=== PATIENT | male | born 1950 | race Hispanic/Latino ===

== ENCOUNTER 2018-01-18 09:46 | Emergency (ER) | payer OTHER ==
[2018-01-18] MEDS ORDERED: HYDROCODONE/APAP 7.5/325 MG TAB ONE (10:36)
[2018-01-18] MEDS ORDERED: IBUPROFEN 400 MG TAB ONE (10:36)
--- NOTE | 2018-01-18 12:18 | RAD REPORT ---
EXAM DESCRIPTION: RAD - Knee Left 3 View - 01/18/2018 10:45 am CLINICAL HISTORY: Fall, knee pain COMPARISON: July 2012 FINDINGS: No fracture, dislocation or periosteal reaction.Large joint effusion seen. No fat fluid le nathan seen to indicate lipohemarthrosis. Advanced degenerative changes are present progressive from 201 3. Significant medial compartment narrowing is present with a moderate lateral compartment narrowing. Both compartment show marginal spurring. Large spurs are present along the margins of the patellofem oral joint space. No focal soft tissue abnormality seen. No foreign body. IMPRESSION: Advanced bony degenerative change present progressive from 2013. An acute bone process i s not identifiable. Large joint effusion without plain film findings for lipohemarthrosis. Clinical concerns for internal derangement or occult bony injury could be further assessed with MR im aging.
--- NOTE | 2018-01-18 12:30 | ER ---
Nurse's Notes [facility] Name: Gildardo Callejas Age: 67 yrs Sex: Male : 1950 Arrival Date: 01/18/2018 Time: 09:48 Bed 17 Private MD: Hayley Eric F Diagnosis: Pain in left knee Presentation: 01/18 09:55 Presenting complaint: Patient states: Left knee pain after mechanical fall from hb standing 2 days ago. Transition of care: patient was not received from another setting of care. Onset of symptoms was January 17, 2018. Risk Assessment: Do you want to hurt yourself or someone else? Patient reports no desire to harm self or others. Initial Sepsis Screen: Does the patient meet any 2 criteria? No. Patient's initial sepsis screen is negative. Does the patient have a suspected source of infection? No. Patient's initial sepsis screen is negative. Care prior to arrival: None. 09:55 Method Of Arrival: Ambulatory hb 09:55 Acuity: MORE 4 hb Historical: - Allergies: 09:57 Sulfa (Sulfonamide Antibiotics); hb - PMHx: 09:57 Hypertension; Diabetes - NIDDM; hb - PSHx: 09:57 Knee surgery; Appendectomy; Cardiac Stents; hb - Immunization history:: Adult Immunizations up to date. - Social history:: Smoking status: Patient/guardian denies using tobacco. - Ebola Screening: : No symptoms or risks identified at this time. Screenin:22 Abuse screen: Denies threats or abuse. Nutritional screening: No deficits noted. em Tuberculosis screening: No symptoms or risk factors identified. Fall Risk Ambulatory Aid- Crutches/Cane/Walker (15 pts). Total Vargas Fall Scale indicates No Risk (0-24 pts). Assessment: 10:30 General: Appears in no apparent distress. uncomfortable, Behavior is calm, cooperative. em Pain: Complains of pain in left knee Pain currently is 10 out of 10 on a pain scale. Neuro: Level of Consciousness is awake, alert, obeys commands, Oriented to person, place, time, situation. Cardiovascular: Capillary refill < 3 seconds Patient's skin is warm and dry. Respiratory: Airway is patent Respiratory effort is even, unlabored, Respiratory pattern is regular, symmetrical. GI: Abdomen is flat. : No signs and/or symptoms were reported regarding the genitourinary system. EENT: No signs and/or symptoms were reported regarding the EENT system. Derm: Skin is intact, Skin is pink, warm \T\ dry. Musculoskeletal: Capillary refill < 3 seconds, Range of motion: limited in left knee Swelling present in left knee. 10:40 Reassessment: I agree with previous assessment. hb 12:24 Reassessment: Patient appears in no apparent distress at this time. Patient and/or em family updated on plan of care and expected duration. Pain level reassessed. Patient is alert, oriented x 3, equal unlabored respirations, skin warm/dry/pink. Patient states feeling better. Patient states symptoms have improved. Vital Signs: 09:57 BP 162 / 81; Pulse 66; Resp 15; Temp 98; Pulse Ox 98% on R/A; Pain 5/10; hb 12:00 BP 154 / 75; Pulse 61; Resp 16; Pulse Ox 99% on R/A; Pain 1/10; em ED Course: 09:48 Patient arrived in ED. as 09:48 Hayley Eric MD is Private Physician. as 09:54 Hans Du PA is PHCP. cp 09:54 Kristian Kyle MD is Attending Physician. cp 09:56 Triage completed. hb 09:57 Arm band placed on. hb 10:00 Jac Quiros LVN is Primary Nurse. em 10:22 Bed in low position. Call light in reach. Adult w/ patient. em 10:42 X-ray completed. Patient tolerated procedure well. Patient moved back from radiology. kw 10:43 XRAY Knee LEFT 3 view In Process Unspecified. EDMS 12:29 Herman Butler MD is Referral Physician. cp 12:48 No provider procedures requiring assistance completed. Patient did not have IV access em during this emergency room visit. Administered Medications: 10:59 Drug: Ibuprofen 800 mg Route: PO; em 12:10 Follow up: Response: No adverse reaction; Pain is decreased em 10:59 Drug: Hydrocodone-Acetaminophen (7.5 mg-325 mg) 1 tabs Route: PO; em 12:11 Follow up: Response: No adverse reaction; Pain is decreased em Outcome: 12:30 Discharge ordered by . cp 12:48 Discharged to home with crutches, with family. em 12:48 Condition: good 12:48 Discharge instructions given to patient, family, Instructed on discharge instructions, follow up and referral plans. medication usage, Demonstrated understanding of instructions, follow-up care, medications, Prescriptions given X 2. 12:49 Patient left the ED. em Signatures: Dispatcher [employer] EDJac Simpson, PRODUCT ARCHITECT PRODUCT ARCHITECT Trish Doll Kimberlee kw Page, Corey, PA PA cp Baxter, Heather, RN RN hb
--- NOTE | 2018-01-18 12:30 | EDPHYS ---
Physician Documentation [facility] Name: Gildardo Callejas Age: 67 yrs Sex: Male : 1950 Arrival Date: 01/18/2018 Time: 09:48 Bed 17 Private MD: Hayley Eric F ED Physician Kristian Kyle HPI: 01/18 10:05 This 67 yrs old Male presents to ER via Ambulatory with complaints of Knee cp Pain. 10:05 The patient presents with an injury, pain, that is acute. cp 10:05 The complaints affect the left knee. Context: resulted from a mis-step, on a slippery cp surface, the patient can fully bear weight, the patient is able to ambulate, with moderate difficulty, Problem is a result from a previous injury: Yes. Onset: The symptoms/episode began/occurred 2 day(s) ago. 10:05 Associated signs and symptoms: Pertinent positives: swelling, weakness, Pertinent cp negatives calf tenderness, numbness, warmth. Treatment prior to arrival includes: no previous treatment. Severity of symptoms: in the emergency department the symptoms are unchanged, despite home interventions. Historical: - Allergies: 09:57 Sulfa (Sulfonamide Antibiotics); hb - PMHx: 09:57 Hypertension; Diabetes - NIDDM; hb - PSHx: 09:57 Knee surgery; Appendectomy; Cardiac Stents; hb - Immunization history:: Adult Immunizations up to date. - Social history:: Smoking status: Patient/guardian denies using tobacco. - Ebola Screening: : No symptoms or risks identified at this time. ROS: 10:10 Constitutional: Negative for body aches, chills, fever, poor PO intake. cp 10:10 Eyes: Negative for injury, pain, redness, and discharge. cp 10:10 ENT: Negative for drainage from ear(s), ear pain, sore throat, difficulty swallowing, difficulty handling secretions. 10:10 Cardiovascular: Negative for chest pain, edema, palpitations. 10:10 Respiratory: Negative for cough, shortness of breath, wheezing. 10:10 Abdomen/GI: Negative for abdominal pain, nausea, vomiting, and diarrhea. 10:10 Back: Negative for pain at rest, pain with movement, radiated pain. 10:10 : Negative for urinary symptoms. 10:10 MS/extremity: Positive for decreased range of motion, pain, swelling, tenderness, of the left knee. 10:10 Skin: Negative for cellulitis, rash. 10:10 Neuro: Negative for altered mental status, headache. 10:10 All other systems are negative. Exam: 10:18 Constitutional: The patient appears in no acute distress, alert, awake, non-toxic, well cp developed, well nourished. 10:18 Head/Face: Normocephalic, atraumatic. cp 10:18 Eyes: Periorbital structures: appear normal, Conjunctiva: normal, no exudate, no injection, Sclera: no appreciated abnormality, Lids and lashes: appear normal, bilaterally. 10:18 ENT: External ear(s): are unremarkable, Nose: is normal, Mouth: is normal, Posterior pharynx: is normal, airway is patent. 10:18 Chest/axilla: Inspection: normal. 10:18 Cardiovascular: Rate: normal. 10:18 Respiratory: the patient does not display signs of respiratory distress, Respirations: normal, no use of accessory muscles, no splinting, no tachypnea, labored breathing, is not present. 10:18 Abdomen/GI: Exam negative for discomfort, distension, guarding, Inspection: abdomen appears normal. 10:18 Back: pain, is absent, ROM is normal. 10:18 Musculoskeletal/extremity: Joints: All joints are normal except the left knee displays limited range of motion, painful range of motion, swelling, tenderness. 10:18 Skin: cellulitis, is not appreciated, no rash present. 10:18 Neuro: Orientation: to person, place \T\ time. Mentation: is normal. Vital Signs: 09:57 BP 162 / 81; Pulse 66; Resp 15; Temp 98; Pulse Ox 98% on R/A; Pain 5/10; hb 12:00 BP 154 / 75; Pulse 61; Resp 16; Pulse Ox 99% on R/A; Pain 1/10; em MDM: 09:54 Patient medically screened. cp 10:30 Differential diagnosis: closed fracture, tendonitis, septic joint. cp 12:28 Data reviewed: vital signs, nurses notes, radiologic studies, plain films, and as a cp result, I will discharge patient. Test interpretation: by ED physician or midlevel provider: plain radiologic studies. Counseling: I had a detailed discussion with the patient and/or guardian regarding: the historical points, exam findings, and any diagnostic results supporting the discharge/admit diagnosis, radiology results, the need for outpatient follow up, for definitive care, a orthopedic surgeon, to return to the emergency department if symptoms worsen or persist or if there are any questions or concerns that arise at home. Response to treatment: the patient's symptoms have markedly improved after treatment, and as a result, I will discharge patient. 01/18 10:02 Order name: XRAY Knee LEFT 3 view; Complete Time: 12:19 cp 01/18 12:28 Order name: Knee Immobilizer; Complete Time: 12:48 cp 01/18 12:28 Order name: Crutches; Complete Time: 12:48 cp Administered Medications: 10:59 Drug: Ibuprofen 800 mg Route: PO; em 12:10 Follow up: Response: No adverse reaction; Pain is decreased em 10:59 Drug: Hydrocodone-Acetaminophen (7.5 mg-325 mg) 1 tabs Route: PO; em 12:11 Follow up: Response: No adverse reaction; Pain is decreased em Disposition: 17:46 Co-signature as Attending Physician, Kristian Kyle MD. rn Disposition: 01/18/18 12:30 Discharged to Home. Impression: Pain in left knee. - Condition is Stable. - Discharge Instructions: Knee Immobilizer, Knee Pain. - Prescriptions for Anaprox DS 550 mg Oral Tablet - take 1 tablet by ORAL route every 12 hours As needed; 20 tablet. Tramadol 50 mg Oral Tablet - take 1 tablet by ORAL route every 8 hours as needed; 20 tablet. - Medication Reconciliation Form, Thank You Letter, Antibiotic Education, Prescription Opioid Use form. - Follow up: Herman Butler MD; When: 2 - 3 days; Reason: Recheck today's complaints. - Problem is new. - Symptoms have improved. Signatures: Dispatcher [employer] EDMS Jac Quiros, PHOTOGRAPHY ASSISTANT PHOTOGRAPHY ASSISTANT em Kristian Kyle MD MD rn Hans Du PA PA cp Baxter, Heather, RN RN Corrections: (The following items were deleted from the chart) 12:49 12:30 01/18/2018 12:30 Discharged to Home. Impression: Pain in left knee. Condition is em Stable. Forms are Medication Reconciliation Form, Thank You Letter, Antibiotic Education, Prescription Opioid Use. Follow up: Herman Butler; When: 2 - 3 days; Reason: Recheck today's complaints. Problem is new. Symptoms have improved. cp
[2018-01-18 13:10] VITALS: TEMP 98
[2018-01-18 13:11] VITALS: BP 154/75; O2SAT 99
== END 2018-01-18 12:49 | disposition home or self-care (01) ==
LOC: ER 09:46
DX: M25.562 Pain in left knee (principal); I10 Essential (primary) hypertension; E11.9 Type 2 diabetes mellitus without complications
CPT/HCPCS: 99283

== ENCOUNTER 2018-10-16 11:52 | Emergency (ER) | payer OTHER ==
--- OUTSIDE RECORDS SUMMARY | 2018-10-16 11:54 | XMS REPORT ---
:1950 Author Organization [facility] Address [address] [place] [address] Dr. Gotti [address] [place] [id number] Care Team Providers Name Role Phone Unavailable Unavailable Unavailable Problems This patient has no known problems. Allergies, Adverse Reactions, Alerts This patient has no known allergies or adverse reactions. Medications This patient has no known medications.
--- NOTE | 2018-10-16 12:39 | RAD REPORT ---
EXAM DESCRIPTION: RAD - Chest Single View - 10/16/2018 12:29 pm CLINICAL HISTORY: weakness Chest pain. COMPARISON: <Comparisons> FINDINGS: Portable technique limits examination quality. The lungs are grossly clear. The heart is normal in size. No displaced fractures. IMPRESSION: No acute intrathoracic process suspected.
[2018-10-16] MEDS ORDERED: NA CHLORIDE 0.9% 1,000 ML ONE (12:41)
[2018-10-16 12:44] LABS: Absolute Lymphocytes (CBC) 2.4 K/uL (0.7-4.9); Basophils % 0.7 % (0-1.3); Hematocrit 39.9 % (39.6-49.0); Lymphocytes % 23.7 % (15.3-44.8); MPV 10.4 fL (7.6-11.3); RBC Red Blood Cell Count 4.34 M/uL (4.33-5.43)
[2018-10-16 12:46] LABS: Protime INR 1.07
[2018-10-16 12:56] LABS: ALT/SGPT 31 U/L (12-78); AST/SGOT 18 U/L (15-37); Albumin 3.8 g/dL (3.4-5.0); Alkaline Phosphatase 89 U/L (45-117); BUN Blood Urea Nitrogen 29 mg/dL (7-18); Bicarbonate 24 mmol/L (21-32); Bilirubin Direct 0.3 mg/dL (0-0.2); Bilirubin Total 0.9 mg/dL (0.2-1.0); Creatine Phosphokinase 179 U/L (39-308); Glucose Level 121 mg/dL (74-106); Lipase 90 U/L (73-393); Magnesium 1.7 mg/dL (1.8-2.4); NT PRO-BNP 62 pg/mL (<125); Potassium 4.1 mmol/L (3.5-5.1); Protein, Total 6.9 g/dL (6.4-8.2); Sodium Level 139 mmol/L (136-145); Troponin (Emerg Dept Use Only) < 0.02 ng/mL (0.0-0.045)
--- NOTE | 2018-10-16 15:08 | ER ---
Nurse's Notes [facility] Name: Gildardo Callejas Age: 68 yrs Sex: Male : 1950 Arrival Date: 10/16/2018 Time: 11:58 Bed 6 Private MD: Hayley Eric F Diagnosis: Dehydration;Low back pain;Vomiting;Diarrhea, unspecified Presentation: 10/16 12:09 Presenting complaint: Severe pain all over after working in heat yesterday.. Transition hb of care: patient was not received from another setting of care. Onset of symptoms was October 15, 2018. Risk Assessment: Do you want to hurt yourself or someone else? Patient reports no desire to harm self or others. Initial Sepsis Screen: Does the patient meet any 2 criteria? No. Patient's initial sepsis screen is negative. Does the patient have a suspected source of infection? No. Patient's initial sepsis screen is negative. Care prior to arrival: None. 12:09 Method Of Arrival: Ambulatory hb 12:09 Acuity: MORE 3 hb Historical: - Allergies: 12:11 Sulfa (Sulfonamide Antibiotics); hb - PMHx: 12:11 Diabetes - NIDDM; Hypertension; hb - PSHx: 12:11 Knee surgery; Appendectomy; Cardiac Stents; hb - Immunization history:: Adult Immunizations up to date. - Social history:: Smoking status: Patient uses tobacco products, smokes one-half pack cigarettes per day. - Ebola Screening: : No symptoms or risks identified at this time. Screenin:30 Abuse screen: Denies threats or abuse. Denies injuries from another. Nutritional sv screening: No deficits noted. Tuberculosis screening: No symptoms or risk factors identified. Fall Risk None identified. Assessment: 12:30 General: Appears in no apparent distress. uncomfortable, Behavior is calm, cooperative, sv appropriate for age. Pain: Complains of pain in "all over" Pain currently is 9 out of 10 on a pain scale. Quality of pain is described as aching. Neuro: Level of Consciousness is awake, alert, obeys commands, Oriented to person, place, time, situation, Moves all extremities. Full function Speech is normal. Respiratory: Airway is patent Respiratory effort is even, unlabored, Respiratory pattern is regular, symmetrical. GI: No signs and/or symptoms were reported involving the gastrointestinal system. : No signs and/or symptoms were reported regarding the genitourinary system. EENT: No signs and/or symptoms were reported regarding the EENT system. Derm: Skin is pink, warm \\T\\ dry. Musculoskeletal: Range of motion: intact in all extremities. 13:53 Reassessment: Patient appears in no apparent distress at this time. Patient and/or sv family updated on plan of care and expected duration. Pain level reassessed. Patient is alert, oriented x 3, equal unlabored respirations, skin warm/dry/pink. 15:20 Reassessment: Patient appears in no apparent distress at this time. Patient and/or sv family updated on plan of care and expected duration. Pain level reassessed. Patient is alert, oriented x 3, equal unlabored respirations, skin warm/dry/pink. Patient states feeling better. Patient states symptoms have improved. Vital Signs: 12:10 BP 108 / 66; Pulse 73; Resp 16; Temp 97.5; Pulse Ox 97% on R/A; Weight 63.5 kg; Height hb 5 ft. 7 in. (170.18 cm); Pain 9/10; 12:28 BP 95 / 53; Pulse 62; Resp 18; Pulse Ox 95% on R/A; sv 12:45 BP 109 / 60; Pulse 60; Resp 17; Pulse Ox 95% on R/A; sv 13:30 BP 110 / 78; Pulse 60; Resp 17; Pulse Ox 97% on R/A; sv 15:00 BP 111 / 77; Pulse 62; Resp 18; Pulse Ox 99% ; sv 12:10 Body Mass Index 21.93 (63.50 kg, 170.18 cm) ED Course: 11:58 Patient arrived in ED. mr 11:59 Hayley Eric MD is Private Physician. mr 12:10 Triage completed. hb 12:10 Arm band placed on. hb 12:14 Adam Aden PA is PHCP. [facility] 12:14 Kristian Kyle MD is Attending Physician. jmm 12:22 Amina Kim, REUBEN is Primary Nurse. sv 12:29 X-ray completed. Portable x-ray completed in exam room. Patient tolerated procedure jb2 well. 12:29 XRAY Chest (1 view) In Process Unspecified. EDMS 12:30 Patient has correct armband on for positive identification. Placed in gown. Bed in low sv position. Call light in reach. Adult w/ patient. telemetry monitor on. Pulse ox on. NIBP on. Door closed. Head of bed elevated. 12:30 Initial lab(s) drawn, by me, sent to lab. Inserted saline lock: 20 gauge in right sv antecubital area, using aseptic technique. Blood collected. Flushed right antecubital with 5 ml normal saline. 12:40 EKG done, by geoscience technician. reviewed by Adam BARBA. at1 15:07 Hayley Eric MD is Referral Physician. [facility] 15:22 No provider procedures requiring assistance completed. IV discontinued, intact, sv bleeding controlled, No redness/swelling at site. Pressure dressing applied. Administered Medications: 12:36 Drug: NS 0.9% 1000 ml Route: IV; Rate: 1 bolus; Site: right antecubital; sv 13:53 Follow up: Response: No adverse reaction; IV Status: Completed infusion; IV Intake: sv 1000ml Intake: 13:53 IV: 1000ml; Total: 1000ml. sv Outcome: 15:07 Discharge ordered by . [facility] 15:22 Discharged to home ambulatory, with family, with his cane, cell phone and belongings sv 15:22 Condition: stable 15:22 Discharge instructions given to patient, family, Instructed on discharge instructions, follow up and referral plans. Demonstrated understanding of instructions, follow-up care. 15:23 Patient left the ED. sv Signatures: Dispatcher [employer] Amina Arias RN RN sv Mickail, Joel, PA PA jm WoodsonDenisse mr NichoslJamil Amanda, banking services advisor EKG Tat1 Jennifer Veronica, REUBEN ALEXIS hb
--- NOTE | 2018-10-16 15:09 | EDPHYS ---
Physician Documentation [facility] Name: Gildardo Callejas Age: 68 yrs Sex: Male : 1950 Arrival Date: 10/16/2018 Time: 11:58 Bed 6 Private MD: Hayley Eric F ED Physician Kristian Kyle HPI: 10/16 12:21 This 68 yrs old Male presents to ER via Ambulatory with complaints of Pain All jmm Over. 12:21 The patient presents to the emergency department with vomiting, diarrhea. Onset: The jmm symptoms/episode began/occurred gradually, 3 day(s) ago. Associated signs and symptoms: Pertinent positives: diarrhea, vomiting. This is a 68 year ol male with a history of dm, htn that presents to the ED with complaints of generalized boady aches, vomiting, diarrhea beginning 3 days ago. 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 . Historical: - Allergies: 12:11 Sulfa (Sulfonamide Antibiotics); hb - PMHx: 12:11 Diabetes - NIDDM; Hypertension; hb - PSHx: 12:11 Knee surgery; Appendectomy; Cardiac Stents; hb - Immunization history:: Adult Immunizations up to date. - Social history:: Smoking status: Patient uses tobacco products, smokes one-half pack cigarettes per day. - Ebola Screening: : No symptoms or risks identified at this time. ROS: 12:21 Cardiovascular: Negative for chest pain, palpitations, and edema, Respiratory: Negative jmm for shortness of breath, cough, wheezing, and pleuritic chest pain. 12:21 MS/Extremity: Negative for injury and deformity, Neuro: Negative for headache, weakness, numbness, tingling, and seizure. 12:21 Constitutional: Positive for fever. 12:21 Constitutional: Positive for body aches. 12:21 Abdomen/GI: Positive for vomiting, diarrhea. 12:21 Back: Positive for pain with movement. 12:21 All other systems are negative. Exam: 12:21 Constitutional: This is a well developed, well nourished patient who is awake, alert, jmm and in no acute distress. Head/Face: atraumatic. Eyes: EOMI, no conjunctival erythema appreciated ENT: Moist Mucus Membranes Neck: Trachea midline, Supple Chest/axilla: Normal chest wall appearance and motion. Cardiovascular: Regular rate and rhythm. No edema appreciated 12:21 Respiratory: the patient does not display signs of respiratory distress, Respirations: normal, Breath sounds: are clear throughout. 12:21 Abdomen/GI: Inspection: abdomen appears normal, Bowel sounds: normal, Palpation: soft, nontender, in all quadrants. 12:21 Musculoskeletal/extremity: ROM: intact in all extremities. 12:21 Skin: Appearance: Color: normal in color. 12:21 Neuro: Orientation: is normal, Mentation: is normal, Memory: is normal. 12:21 Psych: Behavior/mood is pleasant, cooperative. Vital Signs: 12:10 BP 108 / 66; Pulse 73; Resp 16; Temp 97.5; Pulse Ox 97% on R/A; Weight 63.5 kg; Height hb 5 ft. 7 in. (170.18 cm); Pain 9/10; 12:28 BP 95 / 53; Pulse 62; Resp 18; Pulse Ox 95% on R/A; sv 12:45 BP 109 / 60; Pulse 60; Resp 17; Pulse Ox 95% on R/A; sv 13:30 BP 110 / 78; Pulse 60; Resp 17; Pulse Ox 97% on R/A; sv 15:00 BP 111 / 77; Pulse 62; Resp 18; Pulse Ox 99% ; sv 12:10 Body Mass Index 21.93 (63.50 kg, 170.18 cm) hb MDM: 12:21 [facility] 15[facility]05 Data reviewed: vital signs, nurses notes. Counseling: I had a detailed discussion with gregory the patient and/or guardian regarding: the historical points, exam findings, and any diagnostic results supporting the discharge/admit diagnosis, lab results, radiology results, the need for outpatient follow up, to return to the emergency department if symptoms worsen or persist or if there are any questions or concerns that arise at home. ED course: Patient is alert and non toxic in appearance in the ED. Able to ambulate without difficulty. Abdomen benign. Patient states symptoms have decreased in the ED. May be due to dehydration. Patient advised to follow up with pcp and otherwise give strict return precautions. patient understood and agrees with the plan of care. . 10/16 12:22 Order name: Basic Metabolic Panel; Complete Time: 12:59 [facility] 10/16 12:22 Order name: CBC with Diff; Complete Time: 12:59 [facility] 10/16 12:22 Order name: LFT's; Complete Time: 12:59 [facility] 10/16 12:22 Order name: Magnesium; Complete Time: 12:59 [facility] 10/16 12:22 Order name: NT PRO-BNP; Complete Time: 12:59 [facility] 10/16 12:22 Order name: PT-INR; Complete Time: 12:59 [facility] 10/16 12:22 Order name: Troponin (emerg Dept Use Only); Complete Time: 12:59 [facility] 10/16 12:22 Order name: XRAY Chest (1 view); Complete Time: 12:41 [facility] 10/16 12:22 Order name: EKG; Complete Time: 12:23 [facility] 10/16 12:22 Order name: Cardiac monitoring; Complete Time: 12:39 [facility] 10/16 12:22 Order name: Lipase; Complete Time: 12:59 [facility] 10/16 12:22 Order name: CPK; Complete Time: 12: [facility] 10/16 14:42 Order name: Urine Dipstick--Ancillary (enter results) bd 10/16 12:22 Order name: EKG - Nurse/Tech; Complete Time: 12:39 [facility] 10/16 12:22 Order name: IV Saline Lock; Complete Time: 12:39 [facility] 10/16 12:22 Order name: Labs collected and sent; Complete Time: 12:39 [facility] 10/16 12:22 Order name: O2 Per Protocol; Complete Time: 12:39 [facility] 10/16 12:22 Order name: O2 Sat Monitoring; Complete Time: 12:39 [facility] 10/16 14:07 Order name: Urine Dipstick-Ancillary (obtain specimen); Complete Time: 14:58 jmm Administered Medications: 12:36 Drug: NS 0.9% 1000 ml Route: IV; Rate: 1 bolus; Site: right antecubital; sv 13:53 Follow up: Response: No adverse reaction; IV Status: Completed infusion; IV Intake: sv 1000ml Disposition: 16:20 Co-signature as Attending Physician, Kristian Kyle MD. rn Disposition: 10/16/18 15:07 Discharged to Home. Impression: Dehydration, Low back pain, Vomiting, Diarrhea, unspecified. - Condition is Stable. - Discharge Instructions: Back Pain, Adult, Dehydration, Elderly, Diarrhea, Adult, Nausea and Vomiting, Adult. - Medication Reconciliation Form, Thank You Letter, Antibiotic Education, Prescription Opioid Use form. - Follow up: Hayley Eric MD; When: 2 - 3 days; Reason: Recheck today's complaints, Continuance of care, Re-evaluation by your physician. Signatures: Dispatcher [employer] EDAmina Goel RN RN Adam Shaikh PA PA jmm Nieto, Roman, MD MD rn Baxter, Heather, RN RN Corrections: (The following items were deleted from the chart) 15:23 15:07 10/16/2018 15:07 Discharged to Home. Impression: Dehydration; Low back pain; sv Vomiting; Diarrhea, unspecified. Condition is Stable. Forms are Medication Reconciliation Form, Thank You Letter, Antibiotic Education, Prescription Opioid Use. Follow up: Hayley Eric; When: 2 - 3 days; Reason: Recheck today's complaints, Continuance of care, Re-evaluation by your physician. gregory
[2018-10-16 15:10] LABS: Urine Blood NEGATIVE (NEG); Urine Glucose NEGATIVE (NEG); Urine Protein NEGATIVE (NEG); Urine Specific Gravity <1.005 (1.005-1.030)
--- NOTE | 2018-10-16 15:28 | EKG ---
Test Date: 2018-10-16 Test Time: 12:36:26 Welder Tech: MYLES MEASUREMENT RESULTS: Intervals: Rate: 63 AK: 164 QRSD: 106 QT: 420 QTc: 429 Maceo: P: 64 AK: 164 QRS: 2 T: 69 INTERPRETIVE STATEMENTS: Normal sinus rhythm Normal ECG Compared to ECG 12/21/2014 22:41:50 No significant changes Electronically Signed On 10-16-18 15:27:28 CDT by Shawn Caldwell
[2018-10-16 15:41] VITALS: TEMP 97.5
[2018-10-16 15:45] VITALS: BP 111/77; O2SAT 99
== END 2018-10-16 15:23 | disposition home or self-care (01) ==
LOC: ER 11:52
DX: E86.0 Dehydration (principal); R11.10 Vomiting, unspecified; R19.7 Diarrhea, unspecified; M54.5 Low back pain; E11.9 Type 2 diabetes mellitus without complications; I10 Essential (primary) hypertension; F17.210 Nicotine dependence, cigarettes, uncomplicated; Z88.2 Allergy status to sulfonamides
CPT/HCPCS: 93005; 85025; 80048; 36415; 83735; 82550; 85610; 80076; 81003; 84484; 83690; 83880; 71045; J7030

== ENCOUNTER 2018-12-17 19:15 | Emergency (ER) | payer OTHER ==
--- NOTE | 2018-12-17 20:23 | RAD REPORT ---
EXAM DESCRIPTION: CT - C Spine Wo Con - 12/17/2018 8:06 pm CLINICAL HISTORY: Neck pain and radiculopathy COMPARISON: None. TECHNIQUE: Computed axial tomography of the cervical spine were obtained with sagittal and coronal r econstruction images generated and reviewed. All CT scans are performed using dose optimization technique as appropriate and may include automated exposure control or mA/KV adjustment according to patient size. FINDINGS: A cervical fracture is not seen. Mild anterior subluxation C2 on C3. Mild anterior subluxation C7 on T1 Mild spondylosis C3-4 Disc space narrowing, disc bulge, osteophytes C4-5 results in narrowing of the thecal sac millimeters . Mild to moderate narrowing of the neural foramina bilaterally Disc space narrowing, disc bulge, osteophytes C5-6 result in narrowing of the thecal sac to 6 millime ters. Small left paracentral disc herniation is present. Moderate narrowing of the neural foramina bi laterally Disc bulge, disc space narrowing and osteophytes C6-7 narrow the thecal sac 8 millimeters. Mild to mo derate narrowing of the left and mild narrowing of the right neural foramina C7-T1 demonstrates mild spondylosis IMPRESSION: A cervical fracture is not seen. Small left paracentral disc herniation and spondylosis C5-6 resulting in moderate central spinal carmella nosis. If the patient continues have symptoms to suggest spinal cord/spinal canal pathology then MRI would b e recommended.
[2018-12-17] MEDS ORDERED: HYDROMORPHONE HCL 0.5 MG/0.5 ML INJ ONE (20:29)
--- NOTE | 2018-12-17 20:30 | RAD REPORT ---
EXAM DESCRIPTION: CT - Abdomen Pelvis Wo Contrast - 12/17/2018 8:09 pm CLINICAL HISTORY: Abdominal pain COMPARISON: 2010 TECHNIQUE: Computed axial tomography of the abdomen and pelvis was obtained. IV and oral contrast we re not requested. All CT scans are performed using dose optimization technique as appropriate and may include automated exposure control or mA/KV adjustment according to patient size. FINDINGS: The evaluation of solid organs, vessels and bowel is limited secondary to the lack of con trast administration. Gastric distention The liver, spleen, pancreas, and adrenals appear grossly normal. Probable left parapelvic renal cysts. Less likely mild left hydronephrosis. No gross abnormality invo lves right kidney The appendix is normal. There is no evidence of diverticulitis. Neurostimulator present Atherosclerosis IMPRESSION: Parapelvic renal cysts versus mild bilateral hydronephrosis Gastric distention
[2018-12-17 20:34] LABS: Absolute Lymphocytes (CBC) 1.7 K/uL (0.7-4.9); Basophils % 0.4 % (0-1.3); Hematocrit 40.7 % (39.6-49.0); Lymphocytes % 11.6 % (15.3-44.8); MPV 10.5 fL (7.6-11.3); RBC Red Blood Cell Count 4.36 M/uL (4.33-5.43)
[2018-12-17 20:55] LABS: Potassium 4.8 mmol/L (3.5-5.1)
[2018-12-17 21:05] LABS: Urine Blood NEGATIVE (NEG); Urine Glucose NEGATIVE (NEG); Urine Protein TRACE (NEG); Urine Specific Gravity >1.030 (1.005-1.030)
[2018-12-17] MEDS ORDERED: NA CHLORIDE 0.9% 1,000 ML ONE (21:11)
--- NOTE | 2018-12-17 21:14 | EDPHYS ---
Physician Documentation [facility] Name: Gildardo Callejas Age: 68 yrs Sex: Male : 1950 Arrival Date: 12/17/2018 Time: 19:17 Bed 13 Private MD: Hayley Eric F ED Physician Matt Nelson HPI: 12/17 21:09 This 68 yrs old Male presents to ER via Wheelchair with complaints of Back gs Pain. 21:09 The patient presents with pain that is acute. The symptoms are located in the low back. gs Onset: The symptoms/episode began/occurred acutely, 1 week(s) ago. The pain radiates to the left low back. Associated signs and symptoms: Pertinent negatives: constipation, dysuria, incontinence, urinary retention. Modifying factors: the patient symptoms are aggravated by move left lower extremity. Severity of symptoms: At their worst the symptoms were moderate, in the emergency department the symptoms are unchanged. The patient has experienced similar episodes in the past, a few times. 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 - Social history:: Smoking status: Patient uses tobacco products, smokes one-half pack cigarettes per day. - Ebola Screening: : No symptoms or risks identified at this time. ROS: 21:09 All other systems are negative. gs Exam: 21:09 Head/Face: Normocephalic, atraumatic. Eyes: Pupils equal round and reactive to light, gs extra-ocular motions intact. Lids and lashes normal. Conjunctiva and sclera are non-icteric and not injected. Cornea within normal limits. Periorbital areas with no swelling, redness, or edema. ENT: Nares patent. No nasal discharge, no septal abnormalities noted. Tympanic membranes are normal and external auditory canals are clear. Oropharynx with no redness, swelling, or masses, exudates, or evidence of obstruction, uvula midline. Mucous membranes moist. Neck: Trachea midline, no thyromegaly or masses palpated, and no cervical lymphadenopathy. Supple, full range of motion without nuchal rigidity, or vertebral point tenderness. No Meningismus. Chest/axilla: Normal chest wall appearance and motion. Nontender with no deformity. No lesions are appreciated. Cardiovascular: Regular rate and rhythm with a normal S1 and S2. No gallops, murmurs, or rubs. Normal PMI, no JVD. No pulse deficits. Respiratory: Lungs have equal breath sounds bilaterally, clear to auscultation and percussion. No rales, rhonchi or wheezes noted. No increased work of breathing, no retractions or nasal flaring. Abdomen/GI: Soft, non-tender, with normal bowel sounds. No distension or tympany. No guarding or rebound. No evidence of tenderness throughout. Skin: Warm, dry with normal turgor. Normal color with no rashes, no lesions, and no evidence of cellulitis. MS/ Extremity: Pulses equal, no cyanosis. Neurovascular intact. Full, normal range of motion. 21:09 Constitutional: The patient appears alert, awake, uncomfortable. 21:09 Back: pain, that is moderate, Straight leg raises: left lower extremity illicits pain, at 30 degrees. 21:09 Neuro: Orientation: is normal, Cranial nerves: CN II- XII are normal as tested, Motor: no acute changes, Sensation: no acute changes. 21:09 Abdomen/GI: Rectal exam: Stool: brown, guaiac positive. Vital Signs: 19:23 BP 104 / 62; Pulse 72; Resp 18; Temp 98.9; Pulse Ox 98% on R/A; Weight 61.69 kg; Height ea 5 ft. 6 in. (167.64 cm); Pain 9/10; 20:30 BP 122 / 65; Pulse 62; Resp 18; Pulse Ox 96% on R/A; jb4 21:15 BP 142 / 65; Pulse 70; Resp 16; Pulse Ox 98% on R/A; jb4 19:23 Body Mass Index 21.95 (61.69 kg, 167.64 cm) ea MDM: 19:57 Patient medically screened. 21:09 Data reviewed: vital signs, nurses notes. 21:09 Differential diagnosis: Abdominal Aortic Aneurysm Ligament Injury Metastatic Disease gs uti. Response to treatment: the patient's symptoms have markedly improved after treatment, and as a result, I will discharge patient. 12/17 19:55 Order name: CBC with Diff; Complete Time: 20:37 gs 12/17 19:55 Order name: Basic Metabolic Panel; Complete Time: 20:57 gs 12/17 19:55 Order name: CT C Spine; Complete Time: 20:37 gs 12/17 19:55 Order name: Urine Microscopic Only 12/17 20:57 Order name: Urine Dipstick--Ancillary (enter results); Complete Time: 21:18 em1 12/17 21:21 Order name: Urine Culture EDMD 12/17 19:55 Order name: CT Abd/Pelvis - Without Contrast; Complete Time: 20:37 gs 12/17 19:55 Order name: Urine Dipstick-Ancillary (obtain specimen); Complete Time: 20:55 gs Administered Medications: 20:31 Drug: Dilaudid 0.5 mg {Note: Rass score 0.} Route: IVP; Site: right antecubital; [facility] 20:43 Follow up: Response: No adverse reaction; Pain is decreased; RASS: Alert and Calm (0) [facility] 21:10 Drug: NS 0.9% 1000 ml Route: IV; Rate: 1 bolus; Site: right antecubital; 4 22:00 Follow up: Response: No adverse reaction; IV Status: Completed infusion; IV Intake: ea 1000ml Disposition: 12/17/18 21:13 Discharged to Home. Impression: Radiculopathy, lumbar region, Dehydration. - Condition is Stable. - Discharge Instructions: Dehydration, Adult, Lumbosacral Radiculopathy, Back Exercises, [id number]. - Prescriptions for Tramadol 50 mg Oral Tablet - take 1 tablet by ORAL route every 8 hours as needed; 10 tablet. - Medication Reconciliation Form, Thank You Letter, Antibiotic Education, Prescription Opioid Use form. - Follow up: Private Physician; When: 2 - 3 days; Reason: Re-evaluation by your physician. Signatures: Dispatcher [facility] ErieIndra Gutierrez RN RN jb4 Khadra Pardo RN RN ea Starr, Gregory, MD MD gs Corrections: (The following items were deleted from the chart) 22:28 21:13 12/17/2018 21:13 Discharged to Home. Impression: Radiculopathy, lumbar region; ea Dehydration. Condition is Stable. Forms are Medication Reconciliation Form, Thank You Letter, Antibiotic Education, Prescription Opioid Use. Follow up: Private Physician; When: 2 - 3 days; Reason: Re-evaluation by your physician. gs
--- NOTE | 2018-12-17 21:14 | ER ---
Nurse's Notes [facility] Name: Gildardo Callejas Age: 68 yrs Sex: Male : 1950 Arrival Date: 12/17/2018 Time: 19:17 Bed 13 Private MD: Hayley Eric F Diagnosis: Radiculopathy, lumbar region;Dehydration Presentation: 12/17 19:21 Presenting complaint: Patient states: Reports he had surgery in February, pt reports ea the pain that started in the left knee and now is moving left lower back. Transition of care: patient was not received from another setting of care. Onset of symptoms was December 17, 2018. Risk Assessment: Do you want to hurt yourself or someone else? Patient reports no desire to harm self or others. Initial Sepsis Screen: Does the patient meet any 2 criteria? No. Patient's initial sepsis screen is negative. Does the patient have a suspected source of infection? No. Patient's initial sepsis screen is negative. Care prior to arrival: None. 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 - Social history:: Smoking status: Patient uses tobacco products, smokes one-half pack cigarettes per day. - Ebola Screening: : No symptoms or risks identified at this time. Screenin:23 Abuse screen: Denies threats or abuse. Nutritional screening: No deficits noted. ea Tuberculosis screening: No symptoms or risk factors identified. Fall Risk None identified. Assessment: 19:30 General: Appears in no apparent distress. uncomfortable, Behavior is calm, cooperative, jb4 appropriate for age. Pain: Complains of pain in left femoral area Pain radiates to left low back and left quadriceps Pain currently is 9 out of 10 on a pain scale. Quality of pain is described as pressure, stabbing. Neuro: Level of Consciousness is awake, alert, obeys commands, Oriented to person, place, time, situation. Cardiovascular: Patient's skin is warm and dry. Respiratory: Airway is patent Respiratory effort is even, unlabored, Respiratory pattern is regular, symmetrical. GI: No deficits noted. No signs and/or symptoms were reported involving the gastrointestinal system. : Reports pain in left in lower back Denies burning with urination, pain with urination urinary frequency, urgency. EENT: No deficits noted. No signs and/or symptoms were reported regarding the EENT system. Derm: Skin is intact, Skin is pink, warm \\T\\ dry. Musculoskeletal: Circulation, motion, and sensation intact. Range of motion: intact in all extremities. 20:45 Reassessment: Patient appears in no apparent distress at this time. Patient and/or jb4 family updated on plan of care and expected duration. Pain level reassessed. Patient is alert, oriented x 3, equal unlabored respirations, skin warm/dry/pink. Patient states feeling better. 21:25 Reassessment: Patient appears in no apparent distress at this time. Patient and/or jb4 family updated on plan of care and expected duration. Pain level reassessed. Patient is alert, oriented x 3, equal unlabored respirations, skin warm/dry/pink. D/c pending the completion of IV fluids. 22:25 Reassessment: Patient and/or family updated on plan of care and expected duration. Pain ea level reassessed. Patient is alert, oriented x 3, equal unlabored respirations, skin warm/dry/pink. Discharge instruction given to patient, verbalized the understanding of instruction. Pt left ED ambulatory accompanied by family Patient states feeling better. Vital Signs: 19:23 BP 104 / 62; Pulse 72; Resp 18; Temp 98.9; Pulse Ox 98% on R/A; Weight 61.69 kg; Height ea 5 ft. 6 in. (167.64 cm); Pain 9/10; 20:30 BP 122 / 65; Pulse 62; Resp 18; Pulse Ox 96% on R/A; jb4 21:15 BP 142 / 65; Pulse 70; Resp 16; Pulse Ox 98% on R/A; jb4 19:23 Body Mass Index 21.95 (61.69 kg, 167.64 cm) ea ED Course: 19:17 Patient arrived in ED. cl3 19:17 Hayley Eric MD is Private Physician. cl3 19:23 Triage completed. ea 19:30 Arm band placed on right wrist. Patient placed in an exam room, on a stretcher, on ea pulse oximetry. 19:30 Patient has correct armband on for positive identification. Bed in low position. Call ea light in reach. Side rails up X2. 19:38 Matt Nelson MD is Attending Physician. 19:42 Indra Browne RN is Primary Nurse. jb4 20:07 CT C Spine In Process Unspecified. EDMS 20:09 CT Abd/Pelvis - Without Contrast In Process Unspecified. EDMS 20:20 Initial lab(s) drawn, by wi, sent to lab. Inserted saline lock: 20 gauge in right jb4 antecubital area, using aseptic technique. Blood collected. 20:25 CBC with Diff Sent. jb4 20:25 Basic Metabolic Panel Sent. jb4 22:09 IV discontinued, intact, bleeding controlled, No redness/swelling at site. Pressure jd2 dressing applied. 22:28 No provider procedures requiring assistance completed. ea Administered Medications: 20:31 Drug: Dilaudid 0.5 mg {Note: Rass score 0.} Route: IVP; Site: right antecubital; jb4 20:43 Follow up: Response: No adverse reaction; Pain is decreased; RASS: Alert and Calm (0) jb4 21:10 Drug: NS 0.9% 1000 ml Route: IV; Rate: 1 bolus; Site: right antecubital; jb4 22:00 Follow up: Response: No adverse reaction; IV Status: Completed infusion; IV Intake: ea 1000ml Intake: 22:00 IV: 1000ml; Total: 1000ml. ea Outcome: 21:13 Discharge ordered by . 22:26 Discharged to home with family. ea 22:26 Condition: stable 22:26 Discharge instructions given to patient, family, Instructed on discharge instructions, follow up and referral plans. medication usage, Demonstrated understanding of instructions, follow-up care, medications, Prescriptions given X 1. 22:28 Patient left the ED. ea Signatures: Dispatcher [employer] EDMS Rommel Mckenzie jd2 Indra Browne RN RN jb4 Khadra Pardo RN RN ea Starr, Gregory, MD MD gs Lewis, Charde cl3
[2018-12-17 21:18] LABS: Urine Bacteria 20-50 /HPF (NONE SEEN); Urine Culture Reflex Order REFLEXED; Urine RBC <5 /HPF (NONE SEEN)
[2018-12-17 23:31] VITALS: TEMP 98.9
[2018-12-17 23:46] VITALS: BP 142/65; O2SAT 98
== END 2018-12-17 22:28 | disposition home or self-care (01) ==
LOC: ER 19:15
DX: M54.16 Radiculopathy, lumbar region (principal); E86.0 Dehydration; F17.210 Nicotine dependence, cigarettes, uncomplicated; E11.9 Type 2 diabetes mellitus without complications; Z88.2 Allergy status to sulfonamides
CPT/HCPCS: 87088; 85025; 87086; 80048; 36415; 72125; 74176; J1170; J7030; 81003; 81015; 96361; 96374; 99284

== ENCOUNTER 2019-02-12 11:53 | Emergency (ER) | payer OTHER ==
--- OUTSIDE RECORDS SUMMARY | 2019-02-12 11:56 | XMS REPORT ---
:1950 Author Organization [facility] Address [address] [place] [address] [address]. [address] [place] [address] Care Team Providers Name Role Phone Unavailable Unavailable Unavailable Payers Payer Name Policy Type Policy Number Effective Date Expiration Date Problems This patient has no known problems. Allergies, Adverse Reactions, Alerts Allergy Allergy Status Severity Reaction(s) Onset Inactive Treating Comments Name Type Date Date Clinician No Known DA Active U 2018-12 Allergies -18 00:00:0 0 Sulfa DA Active U 2018-12 (Sulfonamid -18 e 00:00:0 Antibiotics 0 ) Medications This patient has no known medications. Encounters Start End Encounter Admission Attending Care Care Encounter Date/Time Date/Time Type Type Clinicians Facility Department ID 2018-12-13 2018-12-13 Outpatient [facility] [id number] 14:16:00 14:16:00 Results Test Description Test Time Test Comments Text Results Atomic Results Result Comments SURG 2019-01-10 RUN DATE: 15:30:00 01/10/19 [facility] - LAB PAGE 1 RUN TIME: 1530 Specimen Inquiry RUN USER: INTERFACE PATIENT: MATIAS CODY LOC: [facility] U #: [id number] AGE/SX: 68/M ROOM: RE01/07/19REG DR: Macho Galeano MD : 51 BED: DIS: STATUS: [facility] TLOC: SPEC #: [id number] RECD: 01/07/19 STATUS: ROBERT RE # : [id number] TRINA: 01/07/[address] [facility] [address]: Macho Galeano MD ENTERED: 01/07/19 SP TYPE: SURG OTHR DR: Hayley Eric MD ORDERED: SURG PATH LVL 06/18 COPIES TO: Hayley Eric MD [address] [place], [place] [address] Macho Galeano MD [address] [place] [address] HISTOLOGY: TISSUE ID BLK PCS CHAVO LEV PROCEDURE DISPOSITION ____ ___ ___ ___ DUODENUM, NOS A 1 2 STOMACH, NOS B 1 2 PROCEDURES: SURG PATH LVL 4 (01/07/19) TISSUES: A. DUODENUM, NOS - DUODENUM BIOPSY B. STOMACH, NOS - STOMACH BIOPSY CLINICAL HISTORY LAM'S -530.85; DIVERTICULOSIS -K57.30 CPT CODES CPT CODE(S): 09390W2 , 37732 , 40745 , , , , FINAL DIAGNOSIS A. Small intestine, duodenum, biopsy: DUODENUM WITH UNREMARKABLE VILLI B. Stomach, biopsy: MILD CHRONIC GASTRITIS NEGATIVE FOR INTESTINAL METAPLASIA, DYSPLASIA, OR MALIGNANCY NEGATIVE FOR HELICOBACTER PYLORI ORGANISMS CONTINUED ON NEXT PAGE RUN DATE: 01/10/19 [facility] PAGE 2 RUN TIME: 1530 Specimen Inquiry RUN USER: INTERFACE SPEC #: [facility]:[id number] PATIENT: MATIAS CODY #[id number] (Continued) GROSS DESCRIPTION A. Duodenal biopsy. Received in formalin are three coburn tissue fragments, 0.1 - 0.3 cm, all as A. B. Stomach biopsy. Received in formalin are seven coburn tissue fragments, 0.1 - 0.5 cm, all as B. wil/nr Grossing performed at [facility] Pathology, [address] [place] [address], [address], [place], [place] [address]. Front Desk Manager: Chandan Escobedo M.D. MICROSCOPIC DESCRIPTION A. Duodenal biopsy. Sections demonstrate duodenum with unremarkable villi. No evidence of villous blunting or increased intraepithelial lymphocytes seen. No features of a malabsorption syndrome are identified. B. Stomach biopsy. Sections demonstrate gastric mucosa with mild chronic inflammation. No dysplasia or malignancy is identified. Alcian blue/ PAS confirms the absence of intestinal metaplasia. The Diff Quik stain demonstrates no evidence of Helicobacter pylori organisms. Signed SIGNATURE ON FILE Maninder Aggarwal 1530 END OF REPORT GLUCOSE BEDSIDE TESTING 2019-01-07 07:29:00 Test Item Value Reference Range Comments GLUCOSE BEDSIDE TESTING (test code=GLUBED) 80 mg/dL 70-110 BASIC METABOLIC [id number] 16:45:00 Test Item Value Reference Range Comments SODIUM (test code=NA) 141 mmol/L 134-147 POTASSIUM (test code=K) 4.7 mmol/L 3.4-5.0 CHLORIDE (test code=CL) 105 mmol/L 100-108 CARBON DIOXIDE (test code=CO2) 26 mmol/L 21-32 ANION GAP (test code=GAP) 10.0 GAP calc 4.0-15.0 GLUCOSE (test code=GLU) 91 MG/DL 70-110 BLOOD UREA NITROGEN (test code=BUN) 18 MG/DL 7-18 GLOMERULAR FILTRATION RATE (test >=60 max estimate estGFR >60 code=GFR) CREATININE (test code=CREAT) 0.7 MG/DL 0.8-1.3 CALCIUM (test code=CA) 8.7 MG/DL 8.5-10.1 CBC W/AUTO [id number] 16:35:00 Test Item Value Reference Range Comments WHITE BLOOD CELL (test code=WBC) 13.3 K/mm3 3.5-11.0 RED BLOOD CELL (test code=RBC) 4.03 M/mm3 4.70-6.10 HEMOGLOBIN (test code=HGB) 12.4 G/DL 12.3-15.9 HEMATOCRIT (test code=HCT) 37.1 % 35.8-46.7 MEAN CELL VOLUME (test code=MCV) 92.1 Fl 86.3-98.9 MEAN CELL HGB (test code=MCH) 30.8 pg 28.9-34.4 MEAN CELL HGB CONCETRATION (test code=MCHC) 33.4 G/DL 32.1-34.5 RED CELL DISTRIBUTION WIDTH (test code=RDW) 12.7 SD 11.5-14.5 PLATELET COUNT (test code=PLT) 311.0 K/mm3 150-450 MEAN PLATELET VOLUME (test code=MPV) 11.90 fL 7.0-9.6 NEUTROPHIL % (test code=NT%) 72.4 % 40-76 LYMPHOCYTE % (test code=LY%) 18.1 % 20.5-51.1 MONOCYTE % (test code=MO%) 7.2 % 1.7-9.3 EOSINOPHIL % (test code=EO%) 2.0 % 0.0-6.0 BASOPHIL % (test code=BA%) 0.3 % 0.0-2.0 NEUTROPHIL # (test code=NT#) 9.60 K/mm3 1.8-7.6 LYMPHOCYTE # (test code=LY#) 2.4 K/mm3 0.6-3.0 MONOCYTE # (test code=MO#) 1.0 K/mm3 0.2-1.5 EOSINOPHIL # (test code=EO#) 0.3 K/mm3 0.0-0.4 BASOPHIL # (test code=BA#) 0.0 K/mm3 0.0-0.2 MANUAL DIFF REQUIRED (test code=MDIFF) NO DIFF/SCN CRITERIA
[2019-02-12] MEDS ORDERED: CLINDAMYCIN 600MG/D5W 600 MG/50 ML BAG IV ONE (12:19)
[2019-02-12] MEDS ORDERED: NA CHLORIDE 0.9% 1,000 ML ONE (12:19)
[2019-02-12 12:43] LABS: Absolute Lymphocytes (CBC) 1.3 K/uL (0.7-4.9); Basophils % 0.3 % (0-1.3); Hematocrit 36.8 % (39.6-49.0); MPV 10.9 fL (7.6-11.3); RBC Red Blood Cell Count 3.97 M/uL (4.33-5.43)
[2019-02-12 12:50] LABS: BUN Blood Urea Nitrogen 15 mg/dL (7-18); Bicarbonate 27 mmol/L (21-32); C-Reactive Protein 5.76 mg/L (<3.00); Glucose Level 181 mg/dL (74-106); Potassium 3.9 mmol/L (3.5-5.1); Sodium Level 141 mmol/L (136-145)
[2019-02-12] MEDS ORDERED: FENTANYL CITR 100 MCG/2 ML ONE (12:56)
--- NOTE | 2019-02-12 14:22 | RAD REPORT ---
EXAM DESCRIPTION: RAD - Wrist Right 3 View - 02/12/2019 2:14 pm CLINICAL HISTORY: Right wrist pain status post injury FINDINGS: No fracture or dislocation is seen. Osteoporosis. Vascular calcifications are present. Calcification of the triangular fibrocartilage If the patient continues to have symptoms to suggest an occult fracture then a followup plain film se pete in 7 days would be recommended.
--- NOTE | 2019-02-12 14:27 | ER ---
Nurse's Notes [facility] Name: Gildardo Callejas Age: 68 yrs Sex: Male : 1950 Arrival Date: 02/12/2019 Time: 11:56 Bed 18 Private MD: Hayley Eric F Diagnosis: Cellulitis of right upper limb Presentation: 02/12 12:03 Presenting complaint: Patient states: last night I felt like something stung me in my la1 left wrist. Today my hand is red and swollen and extremely painful. I went to urgent care and they sent me here due to my BP being low (84/49). Transition of care: patient was not received from another setting of care. Onset of symptoms was February 12, 2019. Risk Assessment: Do you want to hurt yourself or someone else? Patient reports no desire to harm self or others. Initial Sepsis Screen: Does the patient meet any 2 criteria? Systolic BP < 90 mmHg. Mean Arterial Pressure (MAP) < 65. Yes Does the patient have a suspected source of infection? Yes: Skin breakdown/wound. Care prior to arrival: None. 12:03 Method Of Arrival: Wheelchair la1 12:03 Acuity: MORE 2 la1 Historical: - Allergies: 12:03 Sulfa (Sulfonamide Antibiotics); la1 - Home Meds: 12:03 atorvastatin 80 mg oral tab 1 tab once daily [Active]; lisinopril 40 mg Oral tab 1 tab la1 once daily [Active]; amlodipine 5 mg tab 1 tab once daily [Active]; metformin 1,000 mg Oral tab 1 tab 2 times per day [Active]; meloxicam 7.5 mg oral tab 1 tab once daily [Active]; metoprolol succinate 25 mg oral Tb24 1 tab once daily [Active]; pantoprazole 40 mg oral TbEC 1 tab once daily [Active]; 12:06 gabapentin 300 mg oral cap 2 caps BID [Active]; la1 - PMHx: 12:03 "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 - Social history:: Smoking status: unknown. - Ebola Screening: : No symptoms or risks identified at this time. Screenin:05 Abuse screen: Denies threats or abuse. Denies injuries from another. Nutritional ca1 screening: No deficits noted. Tuberculosis screening: No symptoms or risk factors identified. Fall Risk IV access (20 points). Assessment: 12:05 General: Appears in no apparent distress. comfortable, Behavior is calm, cooperative, ca1 appropriate for age. Pain: Complains of pain in right hand Pain currently is 9 out of 10 on a pain scale. Quality of pain is described as burning, Pain began this morning Is continuous. Neuro: Level of Consciousness is awake, alert, obeys commands, Oriented to person, place, time, situation. Cardiovascular: Heart tones S1 S2 present Capillary refill < 3 seconds Patient's skin is warm and dry. Respiratory: Airway is patent Respiratory effort is even, unlabored, Respiratory pattern is regular, symmetrical, Breath sounds are clear bilaterally. GI: Abdomen is flat, non-distended, Bowel sounds present X 4 quads. Abd is soft and non tender X 4 quads. : No deficits noted. No signs and/or symptoms were reported regarding the genitourinary system. EENT: No deficits noted. No signs and/or symptoms were reported regarding the EENT system. Derm: Skin is intact, is healthy with good turgor, Skin is pink, warm \\T\\ dry. Derm: Musculoskeletal: Circulation, motion, and sensation intact. Capillary refill < 3 seconds, Range of motion: limited in right wrist Swelling present in right hand R hand red and warm to touch. 13:00 Reassessment: Patient appears in no apparent distress at this time. Patient is alert, ca1 oriented x 3, equal unlabored respirations, skin warm/dry/pink. 14:01 Reassessment: Patient appears in no apparent distress at this time. Patient is alert, ca1 oriented x 3, equal unlabored respirations, skin warm/dry/pink. Xray at bedside. 14:52 Reassessment: Patient appears in no apparent distress at this time. Patient is alert, ca1 oriented x 3, equal unlabored respirations, skin warm/dry/pink. Vital Signs: 12:05 BP 90 / 46; Pulse 58; Resp 16; Temp 97.6; Pulse Ox 98% on R/A; Weight 62.6 kg; Height 5 la1 ft. 7 in. (170.18 cm); 12:38 BP 116 / 64; Pulse 59; Resp 17 S; Pulse Ox 99% on R/A; ca1 12:52 BP 133 / 64; Pulse 65; Resp 16; Temp 97.8(O); Pulse Ox 99% ; mh5 13:40 BP 129 / 64; Pulse 66; Resp 17 S; Pulse Ox 97% ; ca1 14:50 BP 135 / 60; Pulse 63; Resp 18; Temp 97.9(O); Pulse Ox 98% on R/A; mh5 12:05 Body Mass Index 21.61 (62.60 kg, 170.18 cm) la1 ED Course: 11:56 Patient arrived in ED. mr 11:57 Hyaley Eric MD is Private Physician. mr 12:03 Arm band placed on right wrist. la1 12:05 Triage completed. la1 12:05 Patient has correct armband on for positive identification. Bed in low position. Call ca1 light in reach. Side rails up X 1. Pulse ox on. NIBP on. Warm blanket given. 12:08 Kathryn Izaguirre FNP-C is [facility]. kb 12:08 Gilles Masterson MD is Attending Physician. kb 12:16 Marilee Rosenthal RN is Primary Nurse. ca1 12:21 No provider procedures requiring assistance completed. Inserted saline lock: 18 gauge ca1 in left forearm, using aseptic technique. Blood collected. 12:21 Initial lab(s) drawn, by me, sent to lab. First set of blood cultures drawn by me. ca1 14:15 Wrist Right 3 View XRAY In Process Unspecified. EDMS 14:17 Velcro wrist splint applied to right wrist. ca1 14:53 IV discontinued, intact, bleeding controlled, No redness/swelling at site. Pressure ca1 dressing applied. Administered Medications: 12:21 Drug: NS 0.9% 1000 ml Route: IV; Rate: 1000 ml; Site: left forearm; ca1 13:30 Follow up: Response: No adverse reaction; IV Status: Completed infusion; IV Intake: ca1 1000ml 12:48 Drug: Clindamycin 600 mg Route: IVPB; Infused Over: 30 mins; Site: left forearm; ca1 13:30 Follow up: Response: No adverse reaction; IV Status: Completed infusion ca1 12:55 Drug: fentaNYL (PF) 25 mcg Route: IVP; Site: left forearm; ca1 14:06 Follow up: Response: No adverse reaction; Pain is decreased; RASS: Alert and Calm (0) ca1 Intake: 13:30 IV: 1000ml; Total: 1000ml. ca1 Outcome: 14:26 Discharge ordered by MD. hanks 14:53 Discharged to home via wheelchair, with family. ca1 14:53 Condition: stable 14:53 Discharge instructions given to patient, Instructed on discharge instructions, follow up and referral plans. medication usage, Demonstrated understanding of instructions, follow-up care, medications, Prescriptions given X 1. 14:56 Patient left the ED. ca1 Signatures: Dispatcher [employer] EDMS Kathryn Izaguirre, AIDAN-C [employer]-Nazario OlivaaDenisse Lee, RN RN lake1 Lupe Byrne [facility] Marilee Rosenthal RN RN ca1 Corrections: (The following items were deleted from the chart) 12:06 12:03 Home Meds: gabapentin 300 mg oral cap 1 cap BID; la1 la1 13:40 13:00 BP 129 / 64; Pulse 66bpm; Resp 17bpm; Spontaneous; Pulse Ox 97%; ca1 ca1
--- NOTE | 2019-02-12 14:27 | EDPHYS ---
Physician Documentation [facility] Name: Gildardo Callejas Age: 68 yrs Sex: Male : 1950 Arrival Date: 02/12/2019 Time: 11:56 Bed 18 Private MD: Hayley Eric F ED Physician Gilles Masterson HPI: 02/12 13:39 This 68 yrs old Male presents to ER via Wheelchair with complaints of Low kb blood pressure, Hand Swelling. 13:39 the patient presents with a swollen area of the right wrist and right hand. kb Description: erythematous, hot, swollen. Onset: The symptoms/episode began/occurred this morning. Possible cause(s): pt believes something bit or stung him last night. Associated signs and symptoms: Pertinent positives: erythema, swelling. Modifying factors: the symptoms are alleviated by nothing, the symptoms are aggravated by movement, pressure, touching. Severity of symptoms: At their worst the symptoms were moderate, in the emergency department the symptoms are unchanged. The patient has not experienced similar symptoms in the past. The patient has not recently seen a physician. Pt reports he felt something bite or sting him last night, then woke up with swelling and redness to right wrist. Denies fever.. 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 - Social history:: Smoking status: unknown. - Ebola Screening: : No symptoms or risks identified at this time. ROS: 13:28 Constitutional: Negative for fever, chills, and weight loss, ENT: Negative for injury, kb pain, and discharge, Neck: Negative for injury, pain, and swelling, Cardiovascular: Negative for chest pain, palpitations, and edema, Respiratory: Negative for shortness of breath, cough, wheezing, and pleuritic chest pain, Abdomen/GI: Negative for abdominal pain, nausea, vomiting, diarrhea, and constipation, Back: Negative for injury and pain, Neuro: Negative for headache, weakness, numbness, tingling, and seizure. 13:28 MS/extremity: Positive for decreased range of motion, erythema, pain, swelling, tenderness, of the right wrist. Exam: 13:26 Constitutional: This is a well developed, well nourished patient who is awake, alert, kb and in no acute distress. Head/Face: Normocephalic, atraumatic. ENT: Nares patent. No nasal discharge, no septal abnormalities noted. Tympanic membranes are normal and external auditory canals are clear. Oropharynx with no redness, swelling, or masses, exudates, or evidence of obstruction, uvula midline. Mucous membranes moist. Neck: Trachea midline, no thyromegaly or masses palpated, and no cervical lymphadenopathy. Supple, full range of motion without nuchal rigidity, or vertebral point tenderness. No Meningismus. Chest/axilla: Normal chest wall appearance and motion. Nontender with no deformity. No lesions are appreciated. Cardiovascular: Regular rate and rhythm with a normal S1 and S2. No gallops, murmurs, or rubs. Normal PMI, no JVD. No pulse deficits. Respiratory: Lungs have equal breath sounds bilaterally, clear to auscultation and percussion. No rales, rhonchi or wheezes noted. No increased work of breathing, no retractions or nasal flaring. Abdomen/GI: Soft, non-tender, with normal bowel sounds. No distension or tympany. No guarding or rebound. No evidence of tenderness throughout. Neuro: Awake and alert, GCS 15, oriented to person, place, time, and situation. Cranial nerves II-XII grossly intact. Motor strength 5/5 in all extremities. Sensory grossly intact. Cerebellar exam normal. Normal gait. 13:26 Musculoskeletal/extremity: Extremities: grossly normal except: noted in the right wrist: decreased ROM, erythema, pain, swelling, tenderness, ROM: limited active range of motion, in the right wrist, limited active range of motion due to pain, in the right wrist, limited passive range of motion due to pain, in the right wrist, Circulation is intact in all extremities. Sensation intact. Joints: All joints are normal except the right wrist displays limited range of motion, pain at rest, painful range of motion, swelling, tenderness. Vital Signs: 12:05 BP 90 / 46; Pulse 58; Resp 16; Temp 97.6; Pulse Ox 98% on R/A; Weight 62.6 kg; Height 5 la1 ft. 7 in. (170.18 cm); 12:38 BP 116 / 64; Pulse 59; Resp 17 S; Pulse Ox 99% on R/A; ca1 12:52 BP 133 / 64; Pulse 65; Resp 16; Temp 97.8(O); Pulse Ox 99% ; mh5 13:40 BP 129 / 64; Pulse 66; Resp 17 S; Pulse Ox 97% ; ca1 14:50 BP 135 / 60; Pulse 63; Resp 18; Temp 97.9(O); Pulse Ox 98% on R/A; mh5 12:05 Body Mass Index 21.61 (62.60 kg, 170.18 cm) la1 MDM: 12:08 Patient medically screened. 13:26 Data reviewed: vital signs, nurses notes. Data interpreted: Pulse oximetry: on room air kb is 99 %. Interpretation: normal. 13:37 Data reviewed: I have discussed the patient's presentation/case with the attending Emergency Department Physician; and as a result, I will discharge patient, administer antibiotics Cleocin. Counseling: I had a detailed discussion with the patient and/or guardian regarding: the historical points, exam findings, and any diagnostic results supporting the discharge/admit diagnosis, lab results, radiology results, the need for outpatient follow up, a family practitioner, a orthopedic surgeon, to return to the emergency department if symptoms worsen or persist or if there are any questions or concerns that arise at home. ED course: Discussed diagnostic findings with ERP. Recommends outpatient antibiotics at this time. SED rate normal, WBC and CRP mildly elevated. Pt educated to follow up with DR Butler if symptoms get worse/do not improve. Verbal understanding received from pt and family members. . 15:20 ED course: Pt did not meet sepsis criteria. Pt nontoxic appearing. No fever, chills kb reported. . 02/12 12:14 Order name: CBC with Diff; Complete Time: 13:26 kb 02/12 12:14 Order name: Basic Metabolic Panel; Complete Time: 12:54 kb 02/12 12:14 Order name: CRP; Complete Time: 12:54 kb 02/12 12:14 Order name: Blood Culture Adult (2) kb 02/12 12:14 Order name: Lactate; Complete Time: 13:12 kb 02/12 12:14 Order name: Sed Rate; Complete Time: 13:26 kb 02/12 12:14 Order name: IV Start; Complete Time: 12:32 kb 02/12 12:14 Order name: Procalcitonin; Complete Time: 13:16 kb 02/12 13:34 Order name: Wrist Right 3 View XRAY; Complete Time: 14:25 kb 02/12 13:42 Order name: Wrist Splint; Complete Time: 14:17 kb Administered Medications: 12:21 Drug: NS 0.9% 1000 ml Route: IV; Rate: 1000 ml; Site: left forearm; ca1 13:30 Follow up: Response: No adverse reaction; IV Status: Completed infusion; IV Intake: ca1 1000ml 12:48 Drug: Clindamycin 600 mg Route: IVPB; Infused Over: 30 mins; Site: left forearm; ca1 13:30 Follow up: Response: No adverse reaction; IV Status: Completed infusion ca1 12:55 Drug: fentaNYL (PF) 25 mcg Route: IVP; Site: left forearm; ca1 14:06 Follow up: Response: No adverse reaction; Pain is decreased; RASS: Alert and Calm (0) ca1 Disposition: 15:45 Co-signature as Attending Physician, Gilles Masterson MD I agree with the assessment and kdr plan of care. Disposition: 02/12/19 14:26 Discharged to Home. Impression: Cellulitis of right upper limb. - Condition is Stable. - Discharge Instructions: Cellulitis, Adult, Gskm-rs-Veoa. - Prescriptions for Clindamycin HCl 300 mg Oral Capsule - take 1 capsule by ORAL route every 6 hours for 10 days; 40 capsule. - Medication Reconciliation Form, Thank You Letter, Antibiotic Education, Prescription Opioid Use form. - Follow up: Emergency Department; When: As needed; Reason: Worsening of condition. Follow up: Private Physician; When: 2 - 3 days; Reason: Recheck today's complaints, Continuance of care, Re-evaluation by your physician. Signatures: Dispatcher [employer] EDKathryn Ching, SIDE TRIMMER-C SIDE TRIMMER-Gilles Jin MD MD kdr Attema, Lee, RN RN la1 Marilee Rosetnhal RN RN ca1 Corrections: (The following items were deleted from the chart) 12:06 12:03 Home Meds: gabapentin 300 mg oral cap 1 cap BID; la1 la1 14:56 14:26 02/12/2019 14:26 Discharged to Home. Impression: Cellulitis of right upper limb. ca1 Condition is Stable. Discharge Instructions: Cellulitis, Adult, Eblx-hx-Omex. Prescriptions for Clindamycin HCl 300 mg Oral Capsule - take 1 capsule by ORAL route every 6 hours for 10 days; 40 capsule. and Forms are Medication Reconciliation Form, Thank You Letter, Antibiotic Education, Prescription Opioid Use. Follow up: Emergency Department; When: As needed; Reason: Worsening of condition. Follow up: Private Physician; When: 2 - 3 days; Reason: Recheck today's complaints, Continuance of care, Re-evaluation by your physician. kb
[2019-02-12 16:13] VITALS: BP 135/60; TEMP 97.9; O2SAT 98
== END 2019-02-12 14:56 | disposition home or self-care (01) ==
LOC: ER 11:53
DX: L03.113 Cellulitis of right upper limb (principal); I10 Essential (primary) hypertension; E11.9 Type 2 diabetes mellitus without complications; Z88.2 Allergy status to sulfonamides
CPT/HCPCS: 96365; 87040 ×2; 85025; 80048; 36415; 83605; 85652; 84145; 86140; 73110; 96375; 99284; J3010; J7030

== ENCOUNTER 2019-10-31 23:14 | Emergency (ER) | payer OTHER ==
--- OUTSIDE RECORDS SUMMARY | 2019-10-31 23:17 | XMS REPORT | Continuity of Care Document ---
:1950 Author Organization [facility] t Address [address] [place] [address] Care Team Providers Name Role Phone Diamond Chen Attending Clinician MERCADO Attending Clinician Unavailable Payers Payer Name Policy Type Policy Number Effective Date Expiration Date S ource Problems Condition Condition Condition Status Onset Resolution Last Treating Co mments Source Name Details Category Date Date Treatment Clinician Date MEMORYLOSS Diagnosis Active 2018-12-13 Memoria / PT HAS A 9-06 14:56:00 l MEDTRONIC 00:00: Kvng STIMULATO MEMORYLOSS 00 / PT HAS A MEDTRONIC STIMULATO Active 11/22/2018 [facility] 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 [facility] Allergies, Adverse Reactions, Alerts Allergy Allergy Status Severity Reaction(s) Onset Inactive Treating Comm ents Source Name Type Date Date Clinician No Known DA Active U 2018-03 [facility] 0[facility]18 [place] [facility] DA Active U 2018-03 [facility] (Sulfona 0-18 [place] mide 00:00: d Antibiot 00 [facility] Social History Social Habit Start Date Stop Date Quantity Comments Source Social History 2018-12-14 2018-12-14 [facility] 04:59:00 04:59:00 Medications This patient has no known medications. Procedures This patient has no known procedures. Encounters Start End Encounter Admission Attending Care Care Encounter Source Date/Time Date/Time Type Type Clinicians Facility Department ID 2019-02-07 2019-02-07 Outpatient Jennauser, M[facility] M[facility] [id number] 14:39:00 23:59:00 Bailey Diamond 2019-02-03 2019-02-03 AppointLEEANNA Agudelo [facility] UTP [id number] Univers 11:30:00 11:30:00 t; MERCADO, [facility] ans 2018-12-25 2018-12-25 Outpatient Fanmignonauser, M[facility] [id number] 13:16:00 23:59:00 Bailey Diamond 2018-12-13 2018-12-13 Outpatient Fanmignonauser, [facility] [id number] 14:16:00 23:59:00 Bailey Diamond 2018-12-13 2018-12-13 [id number] 14:16:00 14:16:00 2018-06-28 2018-06-28 Appointnick LEEANNA MERCADO [facility] UTP [id number] Univers 10:00:00 10:00:00 t; MERCADO, [facility] ans 2017-12-28 2017-12-28 Appointmen LEEANNA MERCADO [facility] UTP [id number] Univers 10:30:00 10:30:00 t; MERCADO, [facility] 2017-09-28 2017-09-28 Appointmen LEEANNA MERCADO [facility] UTP [id number] Univers 10:30:00 10:30:00 t; MERCADO, [facility] ans 2017-09-14 2017-09-14 Appointmen LEEANNA MERCADO [facility] UTP [id number] Univers 08:00:00 08:00:00 t; MERCADO, ity of LEEANNA [facility] ans 2017-08-31 2017-08-31 Appointmen LEEANNA MERCADO [facility] UTP [id number] Univers 11:00:00 11:00:00 t; MERCADO, [facility] ans Results Test Description Test Time Test Comments Results Result [facility] e Comments SURG 2019-01-10 15:30:00 ----RUN DATE: 01/10/19 [facility] PAGE 1 RUN TIME: 1530 Specimen Inquiry RUN USER: INTERFACE ----PATIENT: MATIAS CODY LOC: MAGDALENO U #: [id number] AGE/SX: 68/M ROOM: RE01/07/19[facility] DR: Macho Galeano MD : 52 BED: DIS: STATUS: [facility] TLOC: ---- SPEC #: [id number] RECD: 01/07/19 STATUS: ROBERT ARTEAGA #: [id number] TRINA: 01/07/[address] [facility] [address]: Macho Galeano MD ENTERED: 01/07/19 SP TYPE: SURG OTHR DR: Hayley Eric MD ORDERED: SURG PATH LVL 06/18 COPIES TO: Hayley Eric MD [address] [place] [address] Macho Galeano MD [address] [place] [address] HISTOLOGY: TISSUE ID BLK PCS CHAVO LEV PROCEDURE DISPOSITION ____ ___ ___ ___ DUODENUM, NOS A 1 2 STOMACH, NOS B 1 2 PROCEDURES: SURG PATH LVL 4 (01/07/19-1325) TISSUES: A. DUODENUM, NOS - DUODENUM BIOPSY B. STOMACH, NOS - STOMACH BIOPSY CLINICAL HISTORY LAM'S -530.85; DIVERTICULOSIS -K57.30 CPT CODES CPT CODE(S): 45868U3 , 14160 , 87296 , , , , FINAL DIAGNOSIS A. Small intestine, duodenum, biopsy: DUODENUM WITH UNREMARKABLE VILLI B. Stomach, biopsy: MILD CHRONIC GASTRITIS NEGATIVE FOR INTESTINAL METAPLASIA, DYSPLASIA, OR MALIGNANCY NEGATIVE FOR HELICOBACTER PYLORI ORGANISMS CONTINUED ON NEXT PAGE ----RUN DATE: 01/10/19 [facility] PAGE 2 RUN TIME: 1530 Specimen Inquiry RUN USER: INTERFACE ----SPEC #: [id number] PATIENT: GLOMATIAS #[id number] (Continued) GROSS DESCRIPTION A. Duodenal biopsy. Received in formalin are three coburn tissue fragments, 0.1 - 0.3 cm, all as A. B. Stomach biopsy. Received in formalin are seven coburn tissue fragments, 0.1 - 0.5 cm, all as B. wil/nr Grossing performed at [facility] Pathology, [address] [place] [address], [address], [place], [place] [address]. Hogshead Roller: Chandan Escobedo M.D. MICROSCOPIC DESCRIPTION A. Duodenal [...] organisms. Signed SIGNATURE ON FILE Maninder Aggarwal Jack 01/10/19 1530 ---- END OF REPORT GLUCOSE BEDSIDE TESTING 2019-01-07 07:29:00 Test Item Value Reference Range Interpretation Comme nts GLUCOSE BEDSIDE TESTING (test code = GLUBED) 80 mg/dL 70-110 N BASIC METABOLIC [id number] 16:45:00 Test Item Value Reference Range Interpretation Comments SODIUM (test code = NA) 141 mmol/L 134-147 N POTASSIUM (test code = 4.7 mmol/L 3.4-5.0 N K) CHLORIDE (test code = 105 mmol/L 100-108 N CL) CARBON DIOXIDE (test 26 mmol/L 21-32 N code = CO2) ANION GAP (test code = 10.0 GAP calc 4.0-15.0 N GAP) GLUCOSE (test code = 91 MG/DL 70-110 N GLU) BLOOD UREA NITROGEN 18 MG/DL 7-18 N (test code = BUN) GLOMERULAR FILTRATION >=60 max estimate >60 RATE (test code = GFR) estGFR CREATININE (test code = 0.7 MG/DL 0.8-1.3 L CREAT) CALCIUM (test code = CA) 8.7 MG/DL 8.5-10.1 N CBC W/AUTO [id number] 16:35:00 Test Item Value Reference Range Interpretation Comments WHITE BLOOD CELL (test code = 13.3 K/mm3 3.5-11.0 H WBC) RED BLOOD CELL (test code = RBC) 4.03 M/mm3 4.70-6.10 L HEMOGLOBIN (test code = HGB) 12.4 G/DL 12.3-15.9 N HEMATOCRIT (test code = HCT) 37.1 % 35.8-46.7 N MEAN CELL VOLUME (test code = 92.1 Fl 86.3-98.9 N MCV) MEAN CELL HGB (test code = MCH) 30.8 pg 28.9-34.4 N MEAN CELL HGB CONCETRATION (test 33.4 G/DL 32.1-34.5 N code = MCHC) RED CELL DISTRIBUTION WIDTH (test 12.7 SD 11.5-14.5 N code = RDW) PLATELET COUNT (test code = PLT) 311.0 K/mm3 150-450 N MEAN PLATELET VOLUME (test code = 11.90 fL 7.0-9.6 H MPV) NEUTROPHIL % (test code = NT%) 72.4 % 40-76 N LYMPHOCYTE % (test code = LY%) 18.1 % 20.5-51.1 L MONOCYTE % (test code = MO%) 7.2 % 1.7-9.3 N EOSINOPHIL % (test code = EO%) 2.0 % 0.0-6.0 N BASOPHIL % (test code = BA%) 0.3 % 0.0-2.0 N NEUTROPHIL # (test code = NT#) 9.60 K/mm3 1.8-7.6 H LYMPHOCYTE # (test code = LY#) 2.4 K/mm3 0.6-3.0 N MONOCYTE # (test code = MO#) 1.0 K/mm3 0.2-1.5 N EOSINOPHIL # (test code = EO#) 0.3 K/mm3 0.0-0.4 N BASOPHIL # (test code = BA#) 0.0 K/mm3 0.0-0.2 N MANUAL DIFF REQUIRED (test code = NO DIFF/SCN CRITERIA MDIFF)
--- OUTSIDE RECORDS SUMMARY | 2019-10-31 23:17 | XMS REPORT | Continuity of Care Document ---
:1950 Author Organization [employer] Care Team Providers Name Role Phone [employer] Unavailable Un available Problems Problem Status Onset Classification Date Comments Sourc e Date Reported MEMORYLOSS/ PT Active MICHELL Papa morejon HAS A MEDTRONIC 9 Medi onel [facility] Center OTHER Active [facility] DEFORMITIES Medications No Data Provided for This Section Allergies, Adverse Reactions, Alerts No Known Medication Allergies Immunizations No Data Provided for This Section Results No Data Provided for This Section Pathology Reports No Data Provided for This Section Diagnostic Reports Report Value Date Source Spine cervical wo Radiation Dose CTDIVOL = 0 (mGy): DLP = 382.79 (mGy-cm) 02/07/[address] PROCEDURE INFORMATION: Exam: CT Cervical Spine Without Contrast Exam date and time: 02/07/2019 2:57 PM Age: 68 years old Clinical history: Abnormal reflex; Addit ional info: /neck pain. neuro rad to read TECHNIQUE: Imaging protocol: Computed tomography images of the cervical spine without contrast. Total DLP: 382.79 mGy-cm Radiation optimization: All CT scans at this facility use at least one of these dose optimization techniques: automated exposure control; mA and/or kV adjustment per patient size (includes targeted e xams where dose is matched to clinical indication); or iterative reconstructio n. COMPARISON: No relevant prior studies available. FINDINGS: Reversal of the cervical lordosis, likely positi onal or due to muscle spasm. Minimal anterolisthesis of C2 on C3 and mild ant erolisthesis of C7 on T1. The cervical vertebrae demonstrate normal height. Mu ltilevel degenerative changes in the form of reduced intervertebral disc heigh ts, endplate sclerosis, Schmorl's nodes, marginal osteophytes, uncoverte bral and facet arthropathy. Moderate degenerative change s at the C1-C2 articulation. There are no fractures or subluxations of the cervical spine. Preverteb ral soft tissues are unremarkable. Atherosclerotic calcifications peng ng the carotid bifurcations bilaterally. At C2-C3, mild left foraminal stenosis. At C3-C4, disc osteophyte complex with uncovertebral and moderate left and mild right f acet arthropathy. Tyxx-ne-xwmxhbih left forami nal stenosis. No significant spinal canal stenosis. At C4-C5, disc osteophyte complex with uncoverte bral and moderate bilateral facet arthropathy. Mild spin al canal with moderate bilateral foraminal stenosis. At C5-C6, disc osteophyte complex and moderate u ncovertebral and bilateral facet arthropathy. Moderate spinal canal with se dionte bilateral foraminal stenosis. At C6-C7, disc osteophyte complex with moderate uncovertebral and mild facet arthropathy. Moderate left a nd mild right foraminal stenosis. Mild spinal canal stenosis. At C7-T1, Moderate to severe bilateral facet arthropathy. No significant spinal canal stenosis. Moderate to severe bilateral for aminal stenosis. The visualized lung apices are unremarkable. CT myelogram or MRI of the c ervical spine may be performed, if there is further concern. IMPRESSION: 1. No acute fractures or subluxations of the cer vical spine. 2. Multilevel degenerative changes in th e cervical spine as detailed above. No high-grade spinal canal stenosis. At C5-C6, mode rate spinal canal with severe bilateral foraminal stenosis. Moderate bilateral foraminal stenosis at C4-C5. Moderate left and mild right foraminal stenosis at C6-C7. Moderate to severe bilateral foraminal stenosis at C7-T1. Elizabeth London MD On 02/09/2019 16:57:0 4; [id number] Spine lumbar wo Clinical Indication: - lumbar radiculopathy; [place] contrast CT Comparison: None TECHNIQUE: Sequential trans- axial images were obtained with a multi-detector helical CT. Coronal and sagittal reconstructions were obtained. CT imaging performed at this location utilizes radiation dose optimization techniques which include one or more of the following: -Automated exposure control -Adjustment of the mA and/or kV according to pat ient size -Use of iterative reconstruction technique CT Radiation Dose DLP 869.70 mGy-cm FINDINGS: ALIGNMENT AND GENERAL ASSESS MENT: There are 5 nonrib-bearing lumbar vertebral segments. There is normal alignment of the lumbar spine. The anterior and posterior paraspinal soft tissues are unremarkable. There are no fractures or foy bluxations of the lumbar spine. There are no pars interarticularis defects and no spondylolisthesis. The facet joints are well aligned. Moderate aortobiiliac athero sclerotic burden is appreciated. Advanced atherosclerotic burden is noted in the ostia of the SMA and bilateral renal arteries. Distal abdominal aorta measures at the upper l imits of normal in size, at 2.9 cm diameter. Incidental finding of a small left-sided extrarenal pelvis is noted. DISK SPACES AND SOFT TISSUES : MRI has higher sensitivity and specificity for disc and soft tissue disease. T12-L1: The disk is unremark able. The facet joints appear unremarkable. There is no central or foraminal stenosis. L1-L2: Intervertebral disc s pace narrowing. Small posterior disc osteophyte complex. The facet joints appear unremarkable. Moderate left-sided and mild right-sided neuroforaminal narrowing. Minimal central canal stenosis. L2-L3: Intervertebral disc s pace narrowing. Broad-based disc extrusion, with approximately 7.5 mm of cephalad migration of disc material. The facet joints appear unremarkable. Mild bilateral neuroforaminal narrowing. Moderate central canal stenosis. L3-L4: Tiny disc bulge, ecce ntric to the right and residing in the region of the right lateral recess. The facet joints appear unremarkable. Mild right-sided neuroforaminal narrowing. No significant central canal stenosis. L4-L5: Large disc bulge, ecc entric to the left and residing in the left lateral recess and foraminal regions. Mild bilateral facet joint hypertrophy. Severe left-sided and mild right-sided neuroforamina l narrowing. Moderate to severe left paramedian central canal stenosis. L5-S1: Intervertebral disc s pace narrowing. Vacuum disc phenomenon Small broad- based disc bulge. Mild bilateral facet joint hypertrophy. Mild left and moderate right-sided neuroforaminal narrowing. Minimal central canal stenosis. If there is further concern, CT myelogram or MRI of the lumbar spine may be performed for complete assessment. IMPRESSION: 1. No CT evidence of fracture or subluxation in the lumbar spine. 2. Multilevel degenerative c hanges throughout the lumbar spine with varying degrees of neuroforaminal narrowing and/or central canal stenosis, appearing most prominent the L4-L5 level, as detailed above. 3. Moderate to advanced athe rosclerotic burden in portions of the visualized aortobiiliac and visceral arterial branch regions. SL: [id number] Abdomen 2 views DX EXAM: XR ABDOMEN 1 VIEW 12/13/2018 [facility] DATE: 12/13/2018 3:56 PM CDT Cent er INDICATION: IMPLANT AND LEAD CLEARANCE - MRI [facility] ADDITIONAL INFORMATION: None. COMPARISON: None. TECHNIQUE: AP view of the abdomen. FINDINGS: An implant is seen within th e posterior lower back with a lead extending to the presacral space. Extensive atherosclerotic calcifications. Nonobstructive bowel gas pattern. IMPRESSION: An implant is seen within th e posterior lower back with a lead extending to the presacral space. Extensive atherosclerotic calcifications. Nonobstructive bowel gas pattern. Brain wo contrast MRI EXAM: MRI BRAIN WITHOUT CONTRAST. 12/14/19 19 [facility] INDICATION: Amnesia. Center COMPARISON: None. TECHNIQUE: Multiecho multipl montserrat MR sequences of the brain are obtained without gadolinium. Discussion: No restricted di ffusion. No intracranial hemorrhage or mass effect. 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 Minimal microangiopathic changes are present. No hydrocephalus. Mucosal thickening in the le ft maxillary and anterior ethmoid sinuses. Nonspecific left mastoid effusion. 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 No recent inf arction. No advanced parenchymal volu me loss is identified. Minimal microangiopathic changes. Consultation Notes No Data Provided for This Section Discharge Summaries No Data Provided for This Section History and Physicals No Data Provided for This Section Vital Signs No Data Provided for This Section Encounters Location Location Encounter Encounter Reason Attending ADM MO Stat Source Details Type Number For Provider Date Date [facility] [id number] Bailey 12/13 12/14 [facility] 0 [facility] Outpt Diag [id number] Bailey 12/25 [facility] Outpt Diag [id number] Bailey 02/07 02/08 [facility] 1 [facility] Procedures No Data Provided for This Section Assessment and Plan No Data Provided for This Section Plan of Care No Data Provided for This Section Social History Social History Date Source No data available for this 02/08/2019 [facility] and section No data available for this 12/14/2018 [facility] section Family History No Data Provided for This Section Advance Directives No Data Provided for This Section Functional Status No Data Provided for This Section
--- OUTSIDE RECORDS SUMMARY | 2019-10-31 23:17 | XMS REPORT | Summary of Care ---
:1950 Author Organization [facility] Address [address] [place] [address] Care Team Providers Name Role Phone JARRETT GRAY Unavailable Unavailable JESS GRAY Unavailable Unavailable Functional Status Name Dates Details Functional status health issues are not documented Status: Name Dates Details Cognitive status health issues are not documented Status: Problems Name Dates Details Active medical history not documented [facility]: Medications Name Dates Details Medications not documented Allergies and Adverse Reactions Name Dates Details Allergy history not documented Status: Procedures Procedure Dates Details Procedures not documented Immunization Name Dates Details Immunizations not documented Social History Name Dates Details Tobacco smoking consumption unknown (finding) Vital Signs Date Test Result Details No Known Vitals to report Results Date Description Value Details Results not documented Plan of Care Name Dates Details Planned Observations Planned Goals not documented Planned Encounters Appointment; LEEANNA MERCADO On: 25-Aug-2019 12:00 Instructions Name Dates Details Instructions not documented Encounters Appointment; LEEANNA MERCADO On: 31-Aug-2017 11:00 Encounter Diagnosis: Problem not documented Appointment; LEEANNA MERCADO On: 14-Sep-2017 8:00 Encounter Diagnosis: Problem not documented Appointment; LEEANNA MERCADO On: 28-Sep-2017 10:30 Encounter Diagnosis: Problem not documented Appointment; LEEANNA MERCADO On: 28-Dec-2017 10:30 Encounter Diagnosis: Problem not documented Appointment; LEEANNA MERCADO On: 28-Jun-2018 10:00 Encounter Diagnosis: Problem not documented Appointment; LEEANNA MERCADO On: 03-Feb-2019 11:30 Encounter Diagnosis: Problem not documented
[2019-10-31 23:45] LABS: Absolute Lymphocytes (CBC) 2.4 K/uL (0.7-4.9); Basophils % 0.8 % (0-1.3); Hematocrit 32.4 % (39.6-49.0); Lymphocytes % 25.8 % (15.3-44.8); MPV 10.2 fL (7.6-11.3); RBC Red Blood Cell Count 3.34 M/uL (4.33-5.43)
[2019-10-31 23:46] LABS: Protime INR 1.15
[2019-11-01 00:04] LABS: ALT/SGPT 32 U/L (12-78); AST/SGOT 22 U/L (15-37); Albumin 3.2 g/dL (3.4-5.0); Alkaline Phosphatase 70 U/L (45-117); BUN Blood Urea Nitrogen 45 mg/dL (7-18); Bicarbonate 22 mmol/L (21-32); Bilirubin Direct 0.1 mg/dL (0-0.2); Bilirubin Total 0.3 mg/dL (0.2-1.0); Glucose Level 91 mg/dL (74-106); Magnesium 1.6 mg/dL (1.8-2.4); NT PRO-BNP 41 pg/mL (<125); Potassium 4.7 mmol/L (3.5-5.1); Protein, Total 5.7 g/dL (6.4-8.2); Sodium Level 144 mmol/L (136-145); Troponin (Emerg Dept Use Only) < 0.02 ng/mL (0.0-0.045)
[2019-11-01] MEDS ORDERED: NA CHLORIDE 0.9% 1,000 ML ONE ×2 (00:04→00:58)
[2019-11-01 01:06] LABS: Barbiturates NEGATIVE (NEGATIVE); Benzodiazepines NEGATIVE (NEGATIVE); Cocaine NEGATIVE (NEGATIVE); METHAMPHETAM NEGATIVE (NEGATIVE); Methadone NEGATIVE (NEGATIVE); Opiates NEGATIVE (NEGATIVE); Phencyclidine NEGATIVE (NEGATIVE); THC Cannibis POSITIVE (NEGATIVE)
[2019-11-01] MEDS ORDERED: ATROPINE SULF 1 MG/10 ML SYR IV ONE (01:36)
--- NOTE | 2019-11-01 05:40 | ER ---
Nurse's Notes [facility] Name: Gildardo Callejas Age: 69 yrs Sex: Male : 1950 Arrival Date: 10/31/2019 Time: 23:15 Bed 8 Private MD: Diagnosis: Syncopal episode. S/P Fall. Head injury. Dehydration Presentation: 10/30 23:19 Chief complaint: EMS states: Pt was watching Tv called his , as was wh approaching Pt was standing up and just passed out hitting back of his head. Pt with + LOC. Pt was unresponsive for a minute per . Hematoma at back of head was noted by EMS. Care prior to arrival: Medication(s) given: Normal saline infusion, 1000 mL, Atropine 0.5 IV initiated. 18 GA, in the right antecubital area, Glucose check: 122. Mechanism of Injury: Fall from standing position. Trauma event details: Injury occurred in the [facility], Injury occurred: at home. Injury occurred: October 31, 2019. 23:19 Acuity: MORE 3 23:19 Method Of Arrival: EMS: [facility] 23:27 Coronavirus screen: Client denies travel out of the [place] in the last 14 days. Ebola wh Screen: Patient negative for fever greater than or equal to 101.5 degrees Fahrenheit, and additional compatible Ebola Virus Disease symptoms Patient denies exposure to infectious person. Initial Sepsis Screen: Does the patient meet any 2 criteria? No. Patient's initial sepsis screen is negative. Does the patient have a suspected source of infection? No. Patient's initial sepsis screen is negative. Risk Assessment: Do you want to hurt yourself or someone else? Patient reports no desire to harm self or others. Onset of symptoms was October 31, 2019. Trauma Activation: Physician: ED Physician; Name: Márquez; Notified At: 23:22; Arrived At: 23:22 Physician: General Surgeon; Name: ; Notified At: 23:22; Arrived At: Physician: Radiology; Name: ; Notified At: 23:22; Arrived At: Physician: Respiratory; Name: ; Notified At: 23:22; Arrived At: Physician: Lab; Name: ; Notified At: 23:22; Arrived At: Historical: - Allergies: 23:51 Sulfa (Sulfonamide Antibiotics); wh - Home Meds: 23:51 donepezil 5 mg oral tab 1 tab nightly [Active]; aspirin 81 mg Oral chew 1 tab once wh daily [Active]; metoprolol succinate 25 mg Oral Tb24 1 tab once daily [Active]; atorvastatin 80 mg Oral tab 1 tab once daily [Active]; lisinopril 40 mg Oral tab 1 tab once daily [Active]; amlodipine 5 mg tab 1 tab once daily [Active]; metformin 1,000 mg Oral tab 1 tab 2 times per day [Active]; sertraline 25 mg oral tab 2 tabs once daily [Active]; - PMHx: 23:51 "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 - Social history:: Smoking status: Patient/guardian denies using. Screenin:26 Abuse screen: Denies threats or abuse. Denies injuries from another. Nutritional screening: No deficits noted. Tuberculosis screening: No symptoms or risk factors identified. Fall Risk Fall in past 12 months (25 points). Primary Survey: 23:19 NO uncontrolled hemorrhage observed. A: Airway: patent, No supplemental oxygen in use jb4 on arrival. Oral cavity: clear, gag reflex present. Breathing/Chest: Respiratory pattern: regular, Respiratory effort: spontaneous, unlabored, Breath sounds: clear, bilaterally. Circulation: Cardiac rhythm: sinus rhythm Skin color: pink, Skin temperature: warm, dry. Disability Verbal Stimuli. Exposure/Environment: All clothing and personal items were removed. Forensic evidence collection is not deemed to be indicated at this time. Items placed in patient belonging bag. A warming method has been applied: A warm blanket has been provided to the patient. 10/31 00:56 Reassessment Airway Airway Patent Breathing/Chest Respiratory pattern Regular wh Respiratory effort Spontaneous Unlabored Circulation Heart rhythm Sinus rhythm Heart tones Present Color [place] Disability Alert. Secondary Survey: 10/30 23:19 HEENT: Head Other abrasion noted to the back of the scalp. Scabbed. not bleeding. Face jb4 No injury/deformity Eyes: No injury or deformity noted. Ears: clear Nose: clear Throat: is clear with gag reflex present. Gastrointestinal: No deficits noted. : No deficits noted. No signs and/or symptoms were reported regarding the genitourinary system. Musculoskeletal: No deficits noted. No signs and/or symptoms reported regarding the musculoskeletal system. Injury Description: Abrasion sustained to left parietal area is scabbed. Assessment: 23:36 Reassessment: Lida Guerrero, patient's daughter at bedside speaking with Dr. Márquez; lp1 phone number: [phone]. 10/31 00:00 General: Appears in no apparent distress. Behavior is calm, cooperative. Pain: Unable to use pain scale. confused. 01:00 Reassessment: Patient appears in no apparent distress at this time. No changes from previously documented assessment. Patient and/or family updated on plan of care and expected duration. Pain level reassessed. Patient is alert, oriented x 3, equal unlabored respirations, skin warm/dry/pink. 02:05 Reassessment: Patient appears in no apparent distress at this time. No changes from previously documented assessment. Patient and/or family updated on plan of care and expected duration. Pain level reassessed. Patient is alert, oriented x 3, equal unlabored respirations, skin warm/dry/pink. 03:25 Reassessment: Patient appears in no apparent distress at this time. No changes from previously documented assessment. Patient and/or family updated on plan of care and expected duration. Pain level reassessed. Patient is alert, oriented x 3, equal unlabored respirations, skin warm/dry/pink. Pt more more awake and alert. Explained POC will be observing for a few hours per ER MD. 03:35 Reassessment: Spoke with Erick, patient's family member, notified of patient lp1 continuing to be monitored at this time. 03:45 Reassessment: Charge Nurse spoke with family updated with POC. 05:10 Reassessment: Patient appears in no apparent distress at this time. No changes from previously documented assessment. Patient and/or family updated on plan of care and expected duration. Pain level reassessed. Patient is alert, oriented x 3, equal unlabored respirations, skin warm/dry/pink. MD at bedside reassessing Pt, Pt now much more alert and oriented, Pt was able to ambulate without assistance at the end of the hallway and back. 06:15 Reassessment: Patient appears in no apparent distress at this time. No changes from previously documented assessment. Patient and/or family updated on plan of care and expected duration. Pain level reassessed. Patient is alert, oriented x 3, equal unlabored respirations, skin warm/dry/pink. at bedside, Explained POC to . Vital Signs: 10/30 23:22 BP 97 / 51; Pulse 62; Resp 18; Temp 96.8; Pulse Ox 94% on 2 lpm NC; Weight 63.5 kg; Height 5 ft. 6 in. (167.64 cm); 10/31 00:56 BP 91 / 53; Pulse 59; Resp 17; Pulse Ox 100% on 2 lpm NC; 01:03 BP 92 / 50; Pulse 57; Resp 16; Pulse Ox 100% on 2 lpm NC; 02:05 BP 100 / 52; Pulse 48; Resp 18; Pulse Ox 99% on 2 lpm NC; 03:30 BP 96 / 61; Pulse 50; Resp 16; Pulse Ox 100% ; 05:00 BP 121 / 61; Pulse 55; Resp 18; Pulse Ox 98% on R/A; 06:15 BP 107 / 64; Pulse 54; Resp 18; Pulse Ox 98% on R/A; 10/30 23:22 Body Mass Index 22.60 (63.50 kg, 167.64 cm) [place] Coma Score: 10/30 23:22 Eye Response: spontaneous(4). Verbal Response: confused(4). Motor Response: obeys commands(6). Total: 14. Trauma Score (Adult): 23:22 Eye Response: spontaneous(1); Verbal Response: confused(1); Motor Response: obeys commands(2); Systolic BP: > 89 mm Hg(4); Respiratory Rate: 10 to 29 per min(4); [place] Score: 14; Trauma Score: 12 ED Course: 23:15 Patient arrived in ED. ag3 23:22 Triage completed. 23:23 Milan Márquez MD is Attending Physician. pkl 23:26 Andriy Malcolm is Primary Nurse. 23:30 Oxygen administration via nasal cannula \\T\\ 2L/min. wh 23:30 Arm band placed on right wrist. wh 23:35 Maintain EMS IV. Dressing intact. Good blood return noted. Site clean \\T\\ dry. Gauge \\T\\ lp 1 site: 18g to R UA. 23:44 XRAY Chest (1 view) In Process Unspecified. EDMS 10/31 00:00 Thermoregulation: warm blanket given to patient. wh 00:00 Patient has correct armband on for positive identification. Placed in gown. Bed in low wh position. Call light in reach. Side rails up X 1. monitor and storage bin tender on. Pulse ox on. NIBP on. 00:12 CT Traumagram (Head C Spine CAP wo con) In Process Unspecified. EDMS 00:20 Inserted saline lock: 18 gauge in left antecubital area, using aseptic technique. jb4 00:45 Ramesh cath inserted, using sterile technique, 18 Fr., by ny, balloon inflated, to wh gravity drainage, urine specimen collected. 01:30 Ramesh cath removed intact, balloon deflated. wh 06:14 No provider procedures requiring assistance completed. IV discontinued, intact, wh bleeding controlled, No redness/swelling at site. Administered Medications: 10/30 23:45 Drug: NS 0.9% 1000 ml Route: IV; Rate: 1 bolus; Site: right antecubital; 10/31 00:59 Follow up: Response: No adverse reaction; IV Status: Completed infusion 06:23 Follow up: Response: No adverse reaction; IV Status: Completed infusion 01:00 Drug: NS 0.9% 1000 ml Route: IV; Rate: 125 ml/hr; Site: right antecubital; 06:22 Follow up: Response: No adverse reaction; IV Status: Order to discontinue infusion 05:43 Not Given (Physician Discretion): Atropine 0.5 mg IVP once Intake: 06:14 IV: 1500ml; Total: 1500ml. Output: 06:14 Urine: 350ml (Ramesh); Total: 350ml. Outcome: 05:39 Discharge ordered by . pkdaniel 06:14 Discharged to home via wheelchair, with family. wh 06:14 Condition: stable 06:14 Discharge instructions given to patient, Instructed on discharge instructions, follow up and referral plans. POC Demonstrated understanding of instructions, follow-up care, POC 06:15 Patient's length of stay in the Emergency Department was greater than 2 hours. under observationPatient's length of stay extended due to 06:23 Patient left the ED. Signatures: Dispatcher [employer] EDMS Milan Márquez MD MD pkl Pena, Laura, RN RN lp1 Indra Browne RN RN jb4 Theodorapeng Andriy Vicky Glez ag3 Corrections: (The following items were deleted from the chart) 10/30 23:25 23:19 Chief complaint: EMS states: Pt was watching Tv called his , as was approaching Pt was standing up and just passed out hitting back of his head. Pt with + LOC. Hematoma at back of head was noted by EMS 23:22 [place] Score=15, Trauma Score=12, [facility] 23:22 GCS: 15, [facility] 23:22 [place] Score=14, Trauma Score=12, [facility] 23:45 23:22 BP 97 / 51; Pulse 62bpm; Resp 18bpm; Pulse Ox 94% RA; [facility] 23:52 23:22 BP 97 / 51; Pulse 62bpm; Resp 18bpm; Pulse Ox 94% RA; 63.5 kg; Height 5 ft. 6 in.; BMI: 22.6; 10/31 00:57 08 23:30 Patient maintains SpO2 saturation greater than 95% on room air. [facility] 10/31 00:58 00:56 Reassessment Airway Airway Patent Breathing/Chest Respiratory pattern Regular Respiratory effort Spontaneous Unlabored Circulation Heart rhythm Sinus rhythm Heart tones Present Color [place] Disability Alert 01:10/30 23:22 BP 97 / 51; Pulse 62bpm; Resp 18bpm; Pulse Ox 94% RA; Temp 96.8F; 63.5 kg; Height 5 ft. 6 in.; BMI: 22.6; 10/31 01:04 00:56 BP 91 / 53; Pulse 59bpm; Resp 17bpm; Pulse Ox 100% RA; [facility] :16 10/30 23:19 Disability Alert jb4 jb4
--- NOTE | 2019-11-01 05:40 | EDPHYS ---
Physician Documentation [facility] Name: Gildardo Callejas Age: 69 yrs Sex: Male : 1950 Arrival Date: 10/31/2019 Time: 23:15 Bed 8 Private MD: ED Physician Milan Márquez HPI: 10/31 00:28 This 69 yrs old Male presents to ER via EMS with complaints of Fall Injury. pkl 00:28 Details of fall: The patient fell from an upright position, while walking. Onset: The pkl symptoms/episode began/occurred just prior to arrival. Associated injuries: The patient sustained injury to the head, contusion, upper back injury, injury to the low back. said patient had LOC for about 1 min.. 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 - Social history:: Smoking status: Patient/guardian denies using. ROS: 10/31 00:28 Eyes: Negative for injury, pain, redness, and discharge, ENT: Negative for injury, pkl pain, and discharge, Neck: Negative for injury, pain, and swelling, Cardiovascular: Negative for chest pain, palpitations, and edema, Respiratory: Negative for shortness of breath, cough, wheezing, and pleuritic chest pain, Abdomen/GI: Negative for abdominal pain, nausea, vomiting, diarrhea, and constipation, Back: Negative for injury and pain, : Negative for injury, bleeding, discharge, and swelling, MS/Extremity: Negative for injury and deformity, Skin: Negative for injury, rash, and discoloration. Neuro: Positive for altered mental status, loss of consciousness, syncope. Exam: 00:28 Head/Face: Normocephalic, atraumatic. Eyes: Pupils equal round and reactive to light, pkl extra-ocular motions intact. Lids and lashes normal. Conjunctiva and sclera are non-icteric and not injected. Cornea within normal limits. Periorbital areas with no swelling, redness, or edema. ENT: Nares patent. No nasal discharge, no septal abnormalities noted. Tympanic membranes are normal and external auditory canals are clear. Oropharynx with no redness, swelling, or masses, exudates, or evidence of obstruction, uvula midline. Mucous membranes moist. Neck: Trachea midline, no thyromegaly or masses palpated, and no cervical lymphadenopathy. Supple, full range of motion without nuchal rigidity, or vertebral point tenderness. No Meningismus. Chest/axilla: Normal chest wall appearance and motion. Nontender with no deformity. No lesions are appreciated. Cardiovascular: Regular rate and rhythm with a normal S1 and S2. No gallops, murmurs, or rubs. Normal PMI, no JVD. No pulse deficits. Respiratory: Lungs have equal breath sounds bilaterally, clear to auscultation and percussion. No rales, rhonchi or wheezes noted. No increased work of breathing, no retractions or nasal flaring. 00:28 Abdomen/GI: Bowel sounds: normal, Palpation: soft, mild abdominal tenderness, in the right upper quadrant and left upper quadrant. 00:28 Back: Exam negative for acute changes. 00:28 : Exam negative for acute changes. 00:28 Musculoskeletal/extremity: Exam is negative for acute changes. 00:28 Skin: Exam negative for rash. 00:28 Neuro: Orientation: Not oriented to person, place, time, Motor: moves all fours. Vital Signs: 10/30 23:22 BP 97 / 51; Pulse 62; Resp 18; Temp 96.8; Pulse Ox 94% on 2 lpm NC; Weight 63.5 kg; wh Height 5 ft. 6 in. (167.64 cm); 10/31 00:56 BP 91 / 53; Pulse 59; Resp 17; Pulse Ox 100% on 2 lpm NC; 01:03 BP 92 / 50; Pulse 57; Resp 16; Pulse Ox 100% on 2 lpm NC; 02:05 BP 100 / 52; Pulse 48; Resp 18; Pulse Ox 99% on 2 lpm NC; 03:30 BP 96 / 61; Pulse 50; Resp 16; Pulse Ox 100% ; 05:00 BP 121 / 61; Pulse 55; Resp 18; Pulse Ox 98% on R/A; 06:15 BP 107 / 64; Pulse 54; Resp 18; Pulse Ox 98% on R/A; 10/30 23:22 Body Mass Index 22.60 (63.50 kg, 167.64 cm) [place] Coma Score: 10/30 23:22 Eye Response: spontaneous(4). Verbal Response: confused(4). Motor Response: obeys wh commands(6). Total: 14. Trauma Score (Adult): 23:22 Eye Response: spontaneous(1); Verbal Response: confused(1); Motor Response: obeys wh commands(2); Systolic BP: > 89 mm Hg(4); Respiratory Rate: 10 to 29 per min(4); [place] Score: 14; Trauma Score: 12 MDM: 23:23 Patient medically screened. pkl 10/31 05:33 Data reviewed: vital signs, nurses notes, lab test result(s), EKG, radiologic studies, pkl CT scan, plain films. ED course: Patient feeling better. Alert. Ambulatory. Discussed lab. and CT Scans results. Advised to follow up with PCP in 2 to 3 days. Return if necessary. Patient understood instructions. 10/30 23:25 Order name: Basic Metabolic Panel; Complete Time: 00:24 pkl 10/30 23:25 Order name: CBC with Diff; Complete Time: 00:24 pkl 10/30 23:25 Order name: LFT's; Complete Time: 00:24 pkl 10/30 23:25 Order name: Magnesium; Complete Time: 00:24 pkl 10/30 23:25 Order name: NT PRO-BNP; Complete Time: 00:24 pkl 10/30 23:25 Order name: PT-INR; Complete Time: 00:24 pkl 10/30 23:25 Order name: Troponin (emerg Dept Use Only); Complete Time: 00:24 pkl 10/30 23:25 Order name: XRAY Chest (1 view) pkl 10/30 23:30 Order name: CT Traumagram (Head C Spine CAP wo con) pkl 10/30 23:30 Order name: UDS pkl 10/30 23:31 Order name: Urine Drug Screen; Complete Time: 01:12 EDMS 10/30 23:35 Order name: ETOH Level; Complete Time: 00:24 lp1 10/30 23:54 Order name: Procalcitonin; Complete Time: 01:12 lp1 10/30 23:54 Order name: Lactate; Complete Time: 01:12 lp1 10/30 23:25 Order name: EKG; Complete Time: 23:26 pkl 10/30 23:25 Order name: Cardiac monitoring; Complete Time: 23:36 pkl 10/30 23:25 Order name: EKG - Nurse/Tech; Complete Time: 23:36 pkl 10/30 23:25 Order name: IV Saline Lock; Complete Time: 23:36 pkl 10/30 23:25 Order name: Labs collected and sent; Complete Time: 23:36 pkl 10/30 23:25 Order name: O2 Per Protocol; Complete Time: 23:36 pkl 10/30 23:25 Order name: O2 Sat Monitoring; Complete Time: 23:36 pkl 10/30 23:30 Order name: Ramesh; Complete Time: 00:54 pkl Administered Medications: 10/30 23:45 Drug: NS 0.9% 1000 ml Route: IV; Rate: 1 bolus; Site: right antecubital; 10/31 00:59 Follow up: Response: No adverse reaction; IV Status: Completed infusion 06:23 Follow up: Response: No adverse reaction; IV Status: Completed infusion 01:00 Drug: NS 0.9% 1000 ml Route: IV; Rate: 125 ml/hr; Site: right antecubital; 06:22 Follow up: Response: No adverse reaction; IV Status: Order to discontinue infusion 05:43 Not Given (Physician Discretion): Atropine 0.5 mg IVP once Disposition: 11/01/19 05:39 Discharged to Home. Impression: Syncopal episode. S/P Fall. Head injury. Dehydration. - Condition is Stable. - Medication Reconciliation Form, Thank You Letter, Antibiotic Education, Prescription Opioid Use form. - Follow up: Private Physician; When: 2 - 3 days; Reason: Re-evaluation by your physician. - Problem is new. - Symptoms have improved. Signatures: Dispatcher [employer] EDMS Milan Márquez MD MD pkl [place], [place] wh Corrections: (The following items were deleted from the chart) 06:23 05:39 11/01/2019 05:39 Discharged to Home. Impression: Syncopal episode. S/P Fall. Head wh injury. Dehydration. Condition is Stable. Forms are Medication Reconciliation Form, Thank You Letter, Antibiotic Education, Prescription Opioid Use. Follow up: Private Physician; When: 2 - 3 days; Reason: Re-evaluation by your physician. Problem is new. Symptoms have improved. pkl
[2019-11-01 06:30] VITALS: TEMP 96.8
[2019-11-01 06:37] VITALS: O2SAT 98
[2019-11-01 06:38] VITALS: BP 107/64
--- NOTE | 2019-11-01 12:02 | RAD REPORT ---
EXAM DESCRIPTION: RAD - Chest Single View - 10/31/2019 11:44 pm CLINICAL HISTORY: syncope Chest pain. COMPARISON: Chest Single View dated 10/16/2018; CHEST SINGLE VIEW dated 12/21/2014; CHEST PA AND LAT 2 VIEW dated 12/25/2007; CHEST SINGLE VIEW dated 12/18/2007 FINDINGS: Portable technique limits examination quality. Interstitial lung markings are mildly prominent bilaterally. This may represent mild interstitial pul monary edema mild interstitial pneumonitis. The heart is normal in size. No displaced fractures.
--- NOTE | 2019-11-02 15:36 | EKG ---
Test Date: 2019-10-31 Test Time: 23:21:03 Mail Processing Machine Operator: MEASUREMENT RESULTS: Intervals: Rate: 58 IA: 184 QRSD: 114 QT: 442 QTc: 433 [place]: P: 52 IA: 184 QRS: 25 T: 43 INTERPRETIVE STATEMENTS: Sinus bradycardia Otherwise normal ECG Compared to ECG 10/16/2018 12:36:26 Sinus rhythm no longer present Electronically Signed On 11-02-19 15:34:47 CDT by Raymon Miranda
--- NOTE | 2019-11-03 09:53 | RAD REPORT ---
EXAM DESCRIPTION: CT Head and Cervical Spine Without Intravenous Contrast CLINICAL HISTORY: The patient is 69 years old and is Male; fall pain TECHNIQUE: Axial computed tomography images of the head/brain and cervical spine without intravenous contrast. Sagittal and coronal reformatted images were created and reviewed. This CT exam was pe rformed using one or more of the following dose reduction techniques: automated exposure control, a djustment of the mA and/or kV according to patient size, and/or use of iterative reconstruction techn ique. COMPARISON: No relevant prior studies available. FINDINGS: BRAIN: No intracranial hemorrhage, mass effect, or midline shift is seen. There are no e xtra-axial fluid collections. There is diffuse cerebral atrophy present, consistent with this patient 's age. There is patchy hypoattenuation of the deep white matter which is non-specific, but most li stephenie owing to chronic small vessel ischemic change in a patient of this age group. VENTRICLES: Unremarkable. No ventriculomegaly. SKULL: No acute fracture. SINUSES: Unremarkable as visualized. No acute sinusitis. MASTOID AIR CELLS: Unremarkable as visualized. No mastoid effusion. VERTEBRAE: Slight reversal of normal cervical curvature is present. Anterolisthesis of C7 on T 1 secondary to degenerative facet arthropathy is noted. The vertebral body heights are grossly main tained. DISCS/SPINAL CANAL/NEURAL FORAMINA: Extensive multilevel degenerative change with intervertebral disc space narrowing, osteophyte formation, and facet arthropathy throughout. Neural foraminal narro wing is noted at multiple levels secondary to posterior disc osteophyte complexes. SOFT TISSUES: The soft tissues are normal. VASCULATURE: Atherosclerosis of the vasculature is present. LUNG APICES: Unremarkable as visualized. IMPRESSION: 1. No acute intracranial findings. 2. Slight reversal of normal cervical curvature is present. Findings may be secondary to patient position versus muscle spasm. 3. Moderate spondylosis of the cervical spine. EXAM DESCRIPTION: CT Chest, Abdomen and Pelvis Without Intravenous Contrast CLINICAL HISTORY: The patient is 69 years old and is Male; fall pain TECHNIQUE: Axial computed tomography images of the chest, abdomen and pelvis without intravenous con trast. Sagittal and coronal reformatted images were created and reviewed. This CT exam was perfor med using one or more of the following dose reduction techniques: automated exposure control, adjus tment of the mA and/or kV according to patient size, and/or use of iterative reconstruction technique . COMPARISON: No relevant prior studies available. FINDINGS: ARTIFACTS: The exam is suboptimal secondary to motion artifact. CHEST: LUNGS: Minimal dependent densities in the lung bases are present. PLEURAL SPACE: Unremarkable. No significant effusion. No pneumothorax. HEART: No cardiomegaly. No pericardial effusion. ABDOMEN: LIVER: Homogeneous without focal mass. GALLBLADDER AND BILE DUCTS: No calcified stones. No ductal dilation. PANCREAS: The pancreas is atrophic. No ductal dilation. SPLEEN: Unremarkable. ADRENALS: Unremarkable. No mass. KIDNEYS AND URETERS: No obstructing stones. No hydronephrosis. No perinephric fluid. STOMACH AND BOWEL: The stomach is minimally distended. The small bowel is relatively decompresse d. Stool is present throughout colon. Scattered colonic diverticula are noted without surrounding inf lammation. There is no bowel obstruction. PELVIS: APPENDIX: No findings to suggest acute appendicitis. BLADDER: The bladder is moderately distended. No stones. REPRODUCTIVE: Unremarkable as visualized. CHEST, ABDOMEN and PELVIS: INTRAPERITONEAL SPACE: Unremarkable. No significant fluid collection. No free air. BONES/JOINTS: There is no acute fracture of the visualized axial and appendicular skeleton. Mult ilevel degenerative change of the spine is noted. SOFT TISSUES: Unremarkable. VASCULATURE: Atherosclerosis of the vasculature is present. Multiple calcified phleboliths are present within the pelvis. No aortic aneurysm. LYMPH NODES: Unremarkable. No enlarged lymph nodes. TUBES, LINES AND DEVICES: A neural stimulator pack is present within the soft tissues of the rig ht buttock. IMPRESSION: No evidence of solid organ injury or traumatic bony findings on this noncontrasted CT of the chest, abdomen, and pelvis. Electronically signed by: Keesha Ozuna MD 11/01/2019 12:25 AM CDT Due to temporary technical issues with the PACS/Fluency reporting system, reports are being signed by the in house radiologist without review as a courtesy to ensure prompt reporting. The interpreting r adiologist is fully responsible for the content of the report.
== END 2019-11-01 06:23 | disposition home or self-care (01) ==
LOC: ER 23:14
DX: E86.0 Dehydration (principal); S09.90XA Unspecified injury of head, initial encounter; W19.XXXA Unspecified fall, initial encounter; Y93.01 Activity, walking, marching and hiking; Y92.9 Unspecified place or not applicable; I10 Essential (primary) hypertension; E11.40 Type 2 diabetes mellitus with diabetic neuropathy, unspecified; F03.90 Unspecified dementia, unspecified severity, without behavioral disturbance, psychotic disturbance, mood disturbance, and anxiety; I25.2 Old myocardial infarction; Z95.818 Presence of other cardiac implants and grafts; Z79.82 Long term (current) use of aspirin; Z88.2 Allergy status to sulfonamides
CPT/HCPCS: 96361; 93005; 85025; 80048; 36415; 80320; 83735; 85610; 80076; 80307 ×8; 83605; 84484; 84145; 83880; 70450; 71250; 72125; 71045; 51702; 96360; 99285; J7030

== ENCOUNTER 2020-08-20 16:13 | Emergency (ER) | payer OTHER ==
--- OUTSIDE RECORDS SUMMARY | 2020-08-20 16:16 | XMS REPORT | Continuity of Care Document ---
:1950 Author Organization [facility] t Address [address] [place] [address] Care Team Providers Name Role Phone MERCADO Attending Clinician Unavailable Payers Payer Name Policy Type Policy Number Effective Date Expiration Date S ource Problems This patient has no known problems. Allergies, Adverse Reactions, Alerts Allergy Allergy Status Severity Reaction(s) Onset Inactive Treating Comm ents Source Name Type Date Date Clinician No Known DA Active U 2018- [facility] 0-18 [facility] Sulfa DA Active U 2018- [facility] (Sulfona 0-18 [place] mide 00:00: d Antibiot 00 [facility]) [facility] Medications This patient has no known medications. Procedures This patient has no known procedures. Encounters Start End Encounter Admission Attending Care Care Encounter Source Date/Time Date/Time Type Type Clinicians Facility Department ID 2020-08-06 2020-08-06 Outpatient [facility] [id number] [facility] 2020-08-06 2020-08-06 Outpatient [facility] [id number] [facility] 2020-06-23 2020-06-23 Outpatient [facility] [id number] [facility] 2020-06-04 2020-06-04 [facility] [id number] [facility] 2020-06-04 2020-06-04 Outpatient [facility] [id number] [facility] 2019-02-03 [facility]TP [id number] [facility] 11:30:00 11:30:00 t; MERCADO, [facility] ans 2018-12-13 2018-12-13 Outpatient [facility] [id number] [facility] 14:16:00 14:16:00 2018-06-28 2018-06-28 [facility]O [facility]TP [id number] [facility] 10:00:00 10:00:00 t; MERCADO, ity of [facility] ans 2017-12-28 2017-12-28 [facility]O [facility] [id number] [facility] 10:30:00 10:30:00 t; MERCADO, ity of [facility] ans 2017-09-28 2017-09-28 [facility]CADO [facility]TP [id number] Univers 10:30:00 10:30:00 t; MERCADO, ity of [facility] ans 2017-09-14 2017-09-14 [facility] [id number] [facility] 08:00:00 08:00:00 t; MERCADO, ity of [facility] ans 2017-08-31 2017-08-31 [facility]O [facility] [id number] Univers 11:00:00 11:00:00 t; MERCADO, ity of [facility] ans Results Test Description Test Time Test Comments Results Result [facility] lesly REEVES 2019-01-10 15:30:00 ----RUN DATE: 01/10/19 [facility] PAGE 1 RUN TIME: 1530 Specimen Inquiry RUN USER: INTERFACE ----PATIENT: MATIAS CODY LOC: MAGDALENO U #: [id number] AGE/SX: 68/M ROOM: RE01/07/19REG DR: Macho Galeano MD : 51 BED: DIS: STATUS: DEP SDC TLOC: ---- SPEC #: [id number] RECD: 01/07/19 STATUS: ROBERT REQ #: [id number] TRINA: 01/07/19 [facility] DR: Macho Galeano MD ENTERED: 01/07/19 SP TYPE: SURG OTHR DR: Hayley Eric MD ORDERED: SURG PATH LVL 06/18 COPIES TO: Hayley Eric MD [address] [place], [place] [address] Macho Galeano MD [address] [place] [address] HISTOLOGY: TISSUE ID BLK PCS CHAVO LEV PROCEDURE DISPOSITION ____ ___ ___ ___ DUODENUM, NOS A 1 2 STOMACH, NOS B 1 2 PROCEDURES: SURG PATH LVL 4 (01/07/19-1325) TISSUES: A. DUODENUM, NOS - DUODENUM BIOPSY B. STOMACH, NOS - STOMACH BIOPSY CLINICAL HISTORY LAM'S -530.85; DIVERTICULOSIS -K57.30 CPT CODES CPT CODE(S): 67847J4 , 46511 , 98499 , , , , FINAL DIAGNOSIS A. Small intestine, duodenum, biopsy: DUODENUM WITH UNREMARKABLE VILLI B. Stomach, biopsy: MILD CHRONIC GASTRITIS NEGATIVE FOR INTESTINAL METAPLASIA, DYSPLASIA, OR MALIGNANCY NEGATIVE FOR HELICOBACTER PYLORI ORGANISMS CONTINUED ON NEXT PAGE ----RUN DATE: 01/10/19 [facility] PAGE 2 RUN TIME: 1530 Specimen Inquiry RUN USER: INTERFACE ----SPEC #: [facility]:[id number] PATIENT: GLOMATIAS #[id number] (Continued) GROSS DESCRIPTION A. Duodenal biopsy. Received in formalin are three coburn tissue fragments, 0.1 - 0.3 cm, all as A. B. Stomach biopsy. Received in formalin are seven coburn tissue fragments, 0.1 - 0.5 cm, all as B. wil/nr Grossing performed at [facility] Pathology, [address] [place] [address], [address], [place], [place] [address]. Fundraising Director: Chandan Escobedo M.D. MICROSCOPIC DESCRIPTION A. Duodenal [...] organisms. Signed SIGNATURE ON FILE Maninder Aggarwal 01/10/19 1530 ---- END OF REPORT GLUCOSE BEDSIDE TESTING 2019-01-07 07:29:00 Test Item Value Reference Range Interpretation Comme nts GLUCOSE BEDSIDE TESTING (test code = GLUBED) 80 mg/dL 70-110 N BASIC METABOLIC [id number] 16:45:00 Test Item Value Reference Range Interpretation [...] CA) 8.7 MG/DL 8.5-10.1 N CBC W/AUTO [id number] 16:35:00 Test Item Value Reference Range Interpretation [...]
[2020-08-20] MEDS ORDERED: MORPHINE 4 MG/ML SYR ONE (17:29)
[2020-08-20] MEDS ORDERED: ONDANSETRON 4 MG/2 ML VIAL ONE (17:29)
[2020-08-20 17:35] LABS: Absolute Lymphocytes (CBC) 1.9 K/uL (0.7-4.9); Basophils % 0.8 % (0-1.3); Hematocrit 36.5 % (39.6-49.0); Lymphocytes % 18.1 % (15.3-44.8); MPV 9.9 fL (7.6-11.3); RBC Red Blood Cell Count 3.86 M/uL (4.33-5.43)
[2020-08-20 17:47] LABS: Magnesium 1.9 mg/dL (1.8-2.4); Potassium 3.8 mmol/L (3.5-5.1)
--- NOTE | 2020-08-20 18:11 | RAD REPORT ---
EXAM DESCRIPTION: CT - Hip Left Wo Con - 08/20/2020 5:38 pm CLINICAL HISTORY: Left hip pain status post fall COMPARISON: May 2020 TECHNIQUE: Computed axial tomography left hip obtained with coronal and sagittal reconstruction. All CT scans are performed using dose optimization technique as appropriate and may include automated exposure control or mA/KV adjustment according to patient size. FINDINGS: Curvilinear lucency has developed within the superior aspect of the femoral head since the prior exam. 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 Small to moderate left joint effusion. Edema within subcutaneous tissues. IMPRESSION: Development of a curvilinear lucency within the superior aspect of the femoral head. Giv en the additional lucent and sclerotic areas within the left femoral head all of this probably repres ents avascular necrosis rather than a nondisplaced fracture. It is recommended that patient have an M RI for further evaluation
--- NOTE | 2020-08-20 18:19 | ER ---
Nurse's Notes [facility] Name: Gildardo Callejas Age: 70 yrs Sex: Male : 1950 Arrival Date: 08/20/2020 Time: 16:16 Bed 2 Private MD: Diagnosis: Pain in left hip Presentation: 08/20 16:22 Chief complaint: Patient states: "I have been falling a lot and I am having pain in my jd3 left groin and my hip.". Coronavirus screen: At this time, the client does not indicate any symptoms associated with coronavirus-19. Ebola Screen: Patient negative for fever greater than or equal to 101.5 degrees Fahrenheit, and additional compatible Ebola Virus Disease symptoms. Initial Sepsis Screen: Does the patient meet any 2 criteria? No. Patient's initial sepsis screen is negative. Does the patient have a suspected source of infection? No. Patient's initial sepsis screen is negative. Risk Assessment: Do you want to hurt yourself or someone else? Patient reports no desire to harm self or others. Onset of symptoms was August 20, 2020. 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 - Social history:: Smoking status: Patient reports the use of cigarette tobacco products, smokes one-half pack cigarettes per day. Screenin:49 Abuse screen: Denies threats or abuse. Denies injuries from another. Nutritional ld1 screening: No deficits noted. Tuberculosis screening: No symptoms or risk factors identified. Fall Risk None identified. Assessment: 16:49 General: Appears in no apparent distress. uncomfortable, Behavior is calm, cooperative, ld1 appropriate for age. Pain: Complains of pain in left femoral area Pain currently is 9 out of 10 on a pain scale. Quality of pain is described as sharp, Pain began C/O groin pain for past three weeks. Is continuous. Neuro: Level of Consciousness is awake, alert, obeys commands, Oriented to person, place, time, situation, Appropriate for age. Cardiovascular: Capillary refill < 3 seconds Patient's skin is warm and dry. Respiratory: Airway is patent Respiratory effort is even, unlabored, Respiratory pattern is regular, symmetrical. GI: Abdomen is flat, non-distended, Patient currently denies abdominal pain. : No signs and/or symptoms were reported regarding the genitourinary system. EENT: No signs and/or symptoms were reported regarding the EENT system. Derm: No signs and/or symptoms reported regarding the dermatologic system. Musculoskeletal: No signs and/or symptoms reported regarding the musculoskeletal system. 17:45 Reassessment: Patient appears in no apparent distress at this time. No changes from ld1 previously documented assessment. Patient and/or family updated on plan of care and expected duration. Pain level reassessed. Patient is alert, oriented x 3, equal unlabored respirations, skin warm/dry/pink. Waiting on results with at bedside. 18:26 Reassessment: No changes from previously documented assessment. Patient and/or family ld1 updated on plan of care and expected duration. Pain level reassessed. Patient is alert, oriented x 3, equal unlabored respirations, skin warm/dry/pink. ERP at bedside discussing POC. Vital Signs: 16:24 BP 117 / 65; Pulse 57; Resp 17 S; Temp 98.2(TE); Pulse Ox 97% on R/A; Weight 59.87 kg jd3 (R); Height 5 ft. 7 in. (170.18 cm) (R); Pain 9/10; 17:23 BP 145 / 70; Pulse 56; Resp 18; Pulse Ox 97% on R/A; ld1 18:27 BP 128 / 76; Pulse 64; Resp 18; Pulse Ox 99% on R/A; ld1 16:24 Body Mass Index 20.67 (59.87 kg, 170.18 cm) jd3 ED Course: 16:16 Patient arrived in ED. ds1 16:23 Triage completed. jd3 16:25 Arm band placed on. jd3 16:39 Shahriar Young PA is PHCP. jr8 16:39 Gilles Masterson MD is Attending Physician. jr8 16:40 Dibbern, Shweta, RN is Primary Nurse. ld1 16:49 Patient has correct armband on for positive identification. Placed in gown. Bed in low ld1 position. Call light in reach. Side rails up X2. Pulse ox on. NIBP on. 17:38 Hip Left Wo Con In Process Unspecified. EDMS 19:00 No provider procedures requiring assistance completed. IV discontinued, intact, ld1 bleeding controlled, No redness/swelling at site. Administered Medications: 17:29 Drug: Zofran (Ondansetron) 4 mg Route: IVP; Site: left antecubital; ld1 18:00 Follow up: Response: No adverse reaction ld1 17:30 Drug: morphine 4 mg Route: IVP; Site: left antecubital; ld1 18:30 Follow up: Response: No adverse reaction; Pain is decreased; RASS: Alert and Calm (0) ld1 Outcome: 18:19 Discharge ordered by . ayan 19:00 Discharged to home via wheelchair. ld1 19:00 Condition: stable 19:00 Discharge instructions given to patient, family, Instructed on discharge instructions, follow up and referral plans. medication usage, Demonstrated understanding of instructions, follow-up care, medications. 19:00 Patient left the ED. ld1 Signatures: Dispatcher [employer] EDFL DiazShelby ds1 Shahriar Young PA PA jr8 Morgan Dao RN RN jd3 Dibbern, Lauren, RN RN ld1 Corrections: (The following items were deleted from the chart) 18:31 18:00 Response: Pain is decreased ld1 ld1
--- NOTE | 2020-08-20 18:19 | EDPHYS ---
Physician Documentation [facility] Name: Gildardo Callejas Age: 70 yrs Sex: Male : 1950 Arrival Date: 08/20/2020 Time: 16:16 Bed 2 Private MD: ED Physician Gilles Masterson HPI: 08/20 18:13 This 70 yrs old Male presents to ER via Wheelchair with complaints of Groin jr8 Pain. 18:13 The patient or guardian reports pain. There is no obvious deformity, The patient is jr8 able to ambulate with assistance. The patient is able to bear their full body weight. There is no radiation of the patient's discomfort. The complaints affect the left hip. Onset: The symptoms/episode began/occurred gradually. Modifying factors: The symptoms are alleviated by nothing, the symptoms are aggravated by any movement. Associated signs and symptoms: Pertinent positives: None. Severity of symptoms: At their worst the symptoms were moderate, in the emergency department the symptoms are unchanged. The patient has not experienced similar symptoms in the past. The patient has not recently seen a physician. Patient stated that he has chronic pain in hip and has been told he needs replacement. Stated that he has been doing rehab for his knee and had to go twice back to back in two days because of recent holiday. Stated that now his hip hurts with any movement. Has also had several fall lately secondary to his knee and hip. 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 - Social history:: Smoking status: Patient reports the use of cigarette tobacco products, smokes one-half pack cigarettes per day. ROS: 18:13 Eyes: Negative for injury, pain, redness, and discharge, ENT: Negative for injury, jr8 pain, and discharge, Neck: Negative for injury, pain, and swelling, Cardiovascular: Negative for chest pain, palpitations, and edema, Respiratory: Negative for shortness of breath, cough, wheezing, and pleuritic chest pain, Abdomen/GI: Negative for abdominal pain, nausea, vomiting, diarrhea, and constipation, Back: Negative for injury and pain, Skin: Negative for injury, rash, and discoloration, Neuro: Negative for headache, weakness, numbness, tingling, and seizure. 18:13 MS/extremity: Positive for pain, of the left hip. Exam: 18:13 Constitutional: This is a well developed, well nourished patient who is awake, alert, jr8 and in no acute distress. Cardiovascular: Regular rate and rhythm with a normal S1 and S2. No gallops, murmurs, or rubs. Normal PMI, no JVD. No pulse deficits. Respiratory: Lungs have equal breath sounds bilaterally, clear to auscultation and percussion. No rales, rhonchi or wheezes noted. No increased work of breathing, no retractions or nasal flaring. Abdomen/GI: Soft, non-tender, with normal bowel sounds. No distension or tympany. No guarding or rebound. No evidence of tenderness throughout. Back: No spinal tenderness. No costovertebral tenderness. Full range of motion. Skin: Warm, dry with normal turgor. Normal color with no rashes, no lesions, and no evidence of cellulitis. Neuro: Awake and alert, GCS 15, oriented to person, place, time, and situation. Cranial nerves II-XII grossly intact. Motor strength 5/5 in all extremities. Sensory grossly intact. Cerebellar exam normal. Normal gait. 18:13 Musculoskeletal/extremity: Extremities: grossly normal except: noted in the left hip: pain, tenderness, to inguinal region of hip, ROM: intact in all extremities, full active range of motion, full passive range of motion, limited active range of motion due to pain, limited passive range of motion due to pain, Circulation is intact in all extremities. Sensation intact. Vital Signs: 16:24 BP 117 / 65; Pulse 57; Resp 17 S; Temp 98.2(TE); Pulse Ox 97% on R/A; Weight 59.87 kg jd3 (R); Height 5 ft. 7 in. (170.18 cm) (R); Pain 9/10; 17:23 BP 145 / 70; Pulse 56; Resp 18; Pulse Ox 97% on R/A; ld1 18:27 BP 128 / 76; Pulse 64; Resp 18; Pulse Ox 99% on R/A; ld1 16:24 Body Mass Index 20.67 (59.87 kg, 170.18 cm) jd3 MDM: 16:39 Patient medically screened. jr8 18:13 Data reviewed: vital signs, nurses notes, lab test result(s), radiologic studies, CT jr8 scan. Data interpreted: Pulse oximetry: on room air is 97 %. Interpretation: normal. Counseling: I had a detailed discussion with the patient and/or guardian regarding: the historical points, exam findings, and any diagnostic results supporting the discharge/admit diagnosis, lab results, radiology results, the need for outpatient follow up, a orthopedic surgeon, to return to the emergency department if symptoms worsen or persist or if there are any questions or concerns that arise at home. ED course: Discussed with patient that his hip does show avascular changes but needs MRI to completely r/o hip fracture. Would need to f/u with ortho for MRI. Patient good with this and will call his orthopedic . 08/20 17:03 Order name: CBC with Diff; Complete Time: 17:59 8 08/20 17:03 Order name: Basic Metabolic Panel; Complete Time: 17:52 8 08/20 17:03 Order name: Magnesium; Complete Time: 17:52 [facility] 08/20 17:07 Order name: Hip Left Wo Con; Complete Time: 18:12 EDMS 08/20 17:03 Order name: IV; Complete Time: 17:30 jr8 Administered Medications: 17:29 Drug: Zofran (Ondansetron) 4 mg Route: IVP; Site: left antecubital; ld1 18:00 Follow up: Response: No adverse reaction ld1 17:30 Drug: morphine 4 mg Route: IVP; Site: left antecubital; ld1 18:30 Follow up: Response: No adverse reaction; Pain is decreased; RASS: Alert and Calm (0) ld1 Disposition: 08/21 08:05 Co-signature as Attending Physician, Gilles Masterson MD I agree with the assessment and kdr plan of care. Disposition: 08/20/20 18:19 Discharged to Home. Impression: Pain in left hip. - Condition is Stable. - Discharge Instructions: Arthritis, Hip Pain. - Prescriptions for Tylenol- Codeine #3 300-30 mg Oral Tablet - take 2 tablets by ORAL route every 4-6 hours As needed; 16 tablet. - Medication Reconciliation Form, Thank You Letter, Antibiotic Education, Prescription Opioid Use form. - Follow up: Private Physician; When: 2 - 3 days; Reason: Recheck today's complaints, Continuance of care, Re-evaluation by your physician. - Problem is new. - Symptoms have improved. Signatures: Dispatcher [employer] EDMS Gilles Masterson MD MD kdr Roszak, Josh, PA PA jr8 Morgan Dao RN RN jd3 Shweta Recio RN RN ld1 Corrections: (The following items were deleted from the chart) 08/20 19:00 18:19 08/20/2020 18:19 Discharged to Home. Impression: Pain in left hip. Condition is ld1 Stable. Forms are Medication Reconciliation Form, Thank You Letter, Antibiotic Education, Prescription Opioid Use. Follow up: Private Physician; When: 2 - 3 days; Reason: Recheck today's complaints, Continuance of care, Re-evaluation by your physician. Problem is new. Symptoms have improved. jr8
[2020-08-20 19:20] VITALS: TEMP 98.2
[2020-08-20 19:23] VITALS: BP 128/76; O2SAT 99
== END 2020-08-20 19:00 | disposition home or self-care (01) ==
LOC: ER 16:13
DX: M25.552 Pain in left hip (principal); F17.210 Nicotine dependence, cigarettes, uncomplicated; Z94.7 Corneal transplant status; I10 Essential (primary) hypertension; E11.40 Type 2 diabetes mellitus with diabetic neuropathy, unspecified; I25.2 Old myocardial infarction; F03.90 Unspecified dementia, unspecified severity, without behavioral disturbance, psychotic disturbance, mood disturbance, and anxiety; Z95.5 Presence of coronary angioplasty implant and graft
CPT/HCPCS: 85025; 80048; 36415; 83735; 73700; 96375; 96374; 99283; J2405

== ENCOUNTER 2021-05-24 05:48 | Observation (INO) | payer OTHER ==
[2021-05-20 12:36] LABS: Absolute Lymphocytes (CBC) 1.8 K/uL (0.7-4.9); Hematocrit 41.1 % (39.6-49.0); Lymphocytes % 16.2 % (15.3-44.8); MPV 10.1 fL (7.6-11.3); RBC Red Blood Cell Count 4.51 M/uL (4.33-5.43)
[2021-05-20 12:53] LABS: Albumin 3.8 g/dL (3.4-5.0); Bilirubin Total 0.5 mg/dL (0.2-1.0); Potassium 4.3 mmol/L (3.5-5.1); Protein, Total 7.7 g/dL (6.4-8.2)
[2021-05-20 13:50] LABS: Urine Appearance CLEAR (Clear); Urine Bilirubin NEGATIVE (Negative); Urine Blood NEGATIVE (Negative); Urine Color YELLOW (Yellow); Urine Glucose NEGATIVE (Negative); Urine Protein NEGATIVE (Negative)
[2021-05-20 13:51] LABS: Urine Microscopic Reflex NO UMIC
--- NOTE | 2021-05-20 14:13 | RAD REPORT ---
EXAM DESCRIPTION: Chris Emery (2 Views)05/20/2021 1:03 pm CLINICAL HISTORY: Preop for hip replacement COMPARISON: 2019 FINDINGS: The lungs appear clear of acute infiltrate. The heart appears mildly to moderately enlarg ed IMPRESSION: No acute abnormalities displayed
--- NOTE | 2021-05-21 12:46 | EKG ---
Test Date: 2021-05-20 Test Time: 12:10:49 Junior Web Designer: MYLES MEASUREMENT RESULTS: Intervals: Rate: 54 MO: 176 QRSD: 96 QT: 424 QTc: 402 [place]: P: 56 MO: 176 QRS: 209 T: 72 INTERPRETIVE STATEMENTS: Sinus bradycardia Right superior axis deviation Abnormal ECG Compared to ECG 10/31/2019 23:21:03 Right superior axis now present Electronically Signed On 05-21-21 12:44:56 JIG FITTER by Raymon Miranda
[2021-05-24] MEDS ORDERED: GABAPENTIN 100 MG CAP ONE (06:11)
[2021-05-24] MEDS ORDERED: Oxycodone HCl/Acetaminophen 1 TAB TAB ONE (06:12)
[2021-05-24] MEDS ORDERED: ACETAMINOPHEN 500 MG TAB ONE (06:12)
[2021-05-24] MEDS ORDERED: CEFAZOLIN/SWI 2gm 2 GM/20 ML SYR ONE (06:12)
[2021-05-24] MEDS ORDERED: NA CHLORIDE 0.9% 1,000 ML ONE ×2 (06:12→07:57)
[2021-05-24] MEDS ORDERED: FENTANYL CITR 100 MCG/2 ML ONE (06:36)
[2021-05-24] MEDS ORDERED: BUPIVACAINE 0.75% (PF) 2 ML SP ONE (06:36)
[2021-05-24] MEDS ORDERED: SODIUM BICARB 50 MEQ/50ML VIAL ONE (06:36)
[2021-05-24] MEDS ORDERED: LIDOCAINE 1% MPF 5 ML VIAL ONE (06:36)
[2021-05-24] MEDS ORDERED: dexAMETHasone 10 MG/ML VIAL ONE (06:37)
[2021-05-24] MEDS ORDERED: ROPLVACAINE HCL 20 ML ONE (06:38)
[2021-05-24] MEDS ORDERED: ROPIVACAINE HCL 20 ML ONE (06:38)
[2021-05-24] MEDS ORDERED: propofoL 200 MG/20 ML VIAL IV ONE ×5 (06:58→09:47)
[2021-05-24] MEDS ORDERED: LIDOCAINE 2% MPF 5 ML VIAL ONE (06:58)
[2021-05-24] MEDS ORDERED: MIDAZOLAM HCL 2 MG/2 ML INJ ONE (06:58)
[2021-05-24] MEDS ORDERED: ROCURONIUM 50 MG/5 ML VIAL IV ONE ×2 (07:58→08:43)
[2021-05-24] MEDS ORDERED: TRANEXAMIC ACID 1,000 MG in NA CHLORIDE 0.9% 50 ML IV SCH (08:00)
[2021-05-24] MEDS ORDERED: EPHEDRINE SULF 50 MG/ML VIAL ONE (08:20)
--- NOTE | 2021-05-24 09:51 | RAD REPORT ---
EXAM DESCRIPTION: RAD - Hip Joint Unilat One View - 05/24/2021 9:35 am CLINICAL HISTORY: TOTAL HIP IN OR COMPARISON: No comparisons FINDINGS: Two intraoperative radiographs are submitted. Total hip arthroplasty procedure in progress with hardware placed.
[2021-05-24] MEDS ORDERED: DOCUSATE NA 100 MG CAP PO PRN (10:29)
[2021-05-24] MEDS ORDERED: HYDROCODONE/APAP 7.5/325 MG TAB PO PRN (10:29)
[2021-05-24] MEDS ORDERED: ONDANSETRON 4 MG/2 ML VIAL IV PRN (10:29)
[2021-05-24 11:08] LABS: Hematocrit 36.1 % (39.6-49.0)
--- OUTSIDE RECORDS SUMMARY | 2021-05-24 11:27 | XMS REPORT | Continuity of Care Document ---
:1950 Author Organization [facility] t Address [address] [place] [address] Care Team Providers Name Role Phone Collins Eric Primary Care Physician [id number] Attending Clinician Unavailable Jack Pardo Attending Clinician Unavailable Therapy, [facility] Attending Clinician Unavailable Francisca HERNANDEZP Attending Clinician FRANCISCA Attending Clinician Unavailable John ALEXIS Attending Clinician Unavailable EBRAHIM Attending Clinician Unavailable Only, Db Test Attending Clinician Unavailable Ebkeshia ADJUNCT PROFESSOR OF LAW Attending Clinician Doctor Unassigned, Name Attending Clinician Unavailable MERCADO Attending Clinician Unavailable [id number] Admitting Clinician Unavailable Payers Payer Name Policy Type Policy Effective Date Expiration Source Number Date MEDICAREMEDICARE PART [id number] 2009 Un iversity of A & 00:00:00 [facility] [id number] 2009- [facility] [phone] FREDA AVENDANO [id number] LIFE INS COUSAA [id number] 2017 Univ ersity of LIFE INS 00:00:00 [facility] [id number] 2017 Shravan [facility] -PresentIndemnity Problems Condition Condition Condition Status Onset Resolution Last Treating Co mments Source Name Details Category Date Date Treatment Clinician Date Post-op Post-op Disease Active 2019- Univers pain pain 1-30 ity of 00:00: [place] 00 [facility] Allergies, Adverse Reactions, Alerts Allergy Allergy Status Severity Reaction(s) Onset Inactive Treating Comm ents Source Name Type Date Date Clinician No Known DA Active U 2018-03 [facility] All[facility]ie 0-18 [place] [facility] Sulfa DA Active U 2018-03 [facility] (Sulfona 0-18 [place] mide 00:00: d Antibiot 00 Medical ics) [place] Sulfa Propensi Active Hives Univers (Sulfona ty to 1-30 ity of mide adverse 00:00: [place] Antibiot reaction 00 Medica l ics) s Branch SULFA Drug Active Med Hives 2018-0 Univers (SULFONA Class 1-30 ity of MIDE 00:00: [place] ANTIBIOT 00 Medical ICS) Branch Social History Social Habit Start Date Stop Date Quantity Comments Source Exposure to Not sure [facility] SARS-CoV-2 (event) [facility] History of tobacco Cigarette Smoker University of use [facility] Alcohol intake 2020-11-16 2020-11-16 Current drinker Unive rsity of 00:00:00 00:00:00 of alcohol [facility] (finding) Branch Cigarettes smoked 2020-11-16 2020-11-16 Univers ity of current (pack per 00:00:00 00:00:00 ) - Reported Branch Cigarette 2020-11-16 2020-11-16 University of pack-years 00:00:00 00:00:00 [facility] Tobacco use and 2020-11-16 2020-11-16 Never used Universit y of exposure 00:00:00 00:00:00 [facility] Tobacco Comment 2018-04-11 2018-04-11 less than half a Uni versity of 00:00:00 00:00:00 pack [facility] Alcohol Comment 2007-08-14 2007-08-14 6 pack per week Univ ersity of 00:00:00 00:00:00 x 30 years [facility] Sex Ass[birth year] At [birth year] Universit y of 00:00:00 00:00:00 [facility] Smoking Status Start Date Stop Date Source Current every day smoker 2020-11-16 00:00:00 Uni versity of [facility] Medications Ordered Filled Start Stop Current Ordering Indication Dosage Frequency Signature Comments Components Source Medication Medication Date Date Medication? Clinician (SIG) Name Name casirivimab 2020- No [id number] 1200mg Univers -imdevimab 11-16 ity of (REGEN-COV 22:45: 22:42 [place] (EUA)) 00 :00 Medical injection Branch 1,200 mg casirivimab 2020- No [id number] 1200mg 1,200 mg, Univers -imdevimab 11-16 Subcutaneo it y of (REGEN-COV 22:45: 22:42 , [place]CE, [place] (EUA[place] 00 :00 1 dose, Medical injection Tue Branch 1,200 mg 11/16/20 at 1745, Routine NITROGLYCER Yes 1 tab SL Un ree IN 0.4 MG 11-16 q5min prn ity o f SL SUBL 22:32: [address] PYRIDOXINE Yes 1 tab Qmon U nivers 50 MG ORAL 11-16 & thurs ity of TAB 22:32: DOT [address] ISONIAZID Yes 1 tab PO Univ ers 300 MG ORAL 11-16 Qmon & ity of TAB 22:32: thurs DOT [address] ENALAPRIL Yes 1 tab PO Univ ers MALEATE 5 11-16 daily ity of MG ORAL TAB 22:32: [address] GLYBURIDE 5 Yes 1 tab PO Un ree MG ORAL TAB 11-16 BID ity of 22:32: [address] METOPROLOL Yes 1 tab PO Uni vers TARTRATE 50 - BID ity of MG ORAL TAB 22:32: [place] 30 Medical Branch ondansetron 2019-0 Yes [id number] 8mg Take 1 Univers (ZOFRAN) 8 2-19 tablet by ity of mg tablet 00:00: mouth [place] 00 every 8 Medical (eight) Branch hours as needed for Nausea and Vomiting (N/V). clindamycin 2018- Yes [id number] 300mg Take 1 Univers 300 mg 2-19 capsule by ity of capsule 00:00: mouth 4 [place] (four) Medical times Branch daily. ondansetron 2018-0 Yes [id number] 8mg Take 1 Univers (ZOFRAN) 8 2-19 tablet by ity of mg tablet 00:00: mouth [place] 00 every 8 Medical (eight) Branch hours as needed for Nausea and Vomiting (N/V). clindamycin 2018-0 Yes [id number] 300mg Take 1 Univers 300 mg 2-19 capsule by ity of capsule 00:00: mouth [place] (four) Medical times Branch daily. ondansetron 2018- Yes [id number] 8mg Take 1 Univers (ZOFRAN) 8 2-19 tablet by ity of mg tablet 00:00: mouth [place] 00 every 8 Medical (eight) Branch hours as needed for Nausea and Vomiting (N/V). clindamycin 2018- Yes [id number] 300mg Take 1 Univers 300 mg 2-19 capsule by ity of capsule 00:00: mouth [place] (four) Medical times Branch daily. ondansetron 2018-0 Yes [id number] 8mg Take 1 Univers (ZOFRAN) 8 2-19 tablet by ity of mg tablet 00:00: mouth [place] 00 every 8 Medical (eight) Branch hours as needed for Nausea and Vomiting (N/V). clindamycin 2018- Yes [id number] 300mg Take 1 Univers 300 mg 2-19 capsule by ity of capsule 00:00: mouth [place] ([facility]) Medical times Branch daily. NITROGLYCER Yes 1 tab SL Un ree IN 0.4 MG 2-01 q5min prn ity o f SL SUBL 21:46: [address] PYRIDOXINE 2018- Yes 1 tab Qmon U nivers 50 MG ORAL 2-01 & thurs ity of TAB 21:46: DOT [address] ISONIAZID 2018-0 Yes 1 tab PO Univ ers 300 MG ORAL 2-01 Qmon & ity of TAB 21:46: thurs DOT [address] ENALAPRIL 2019- Yes 1 tab PO Univ ers MALEATE 5 2-01 daily ity of MG ORAL TAB 21:46: [address] GLYBURIDE 5 2018- Yes 1 tab PO Un ree MG ORAL TAB 2-01 BID ity of 21:46: [address] METOPROLOL 2019- Yes 1 tab PO Uni vers TARTRATE 50 2-01 BID ity of MG ORAL TAB 21:46: [address] NITROGLYCER 2019- Yes 1 tab SL Un ree IN 0.4 MG 2-01 q5min prn ity o f SL SUBL 21:46: [address] PYRIDOXINE Yes 1 tab Qmon U nivers 50 MG ORAL 2-01 & thurs ity of TAB 21:46: DOT [address] ISONIAZID 2018- Yes 1 tab PO Univ ers 300 MG ORAL 2-01 Qmon & ity of TAB 21:46: thurs DOT [address] ENALAPRIL 2018- Yes 1 tab PO Univ ers MALEATE 5 2-01 daily ity of MG ORAL TAB 21:46: [address] GLYBURIDE 5 Yes 1 tab PO Un ree MG ORAL TAB 2-01 BID ity of 21:46: [address] METOPROLOL 2018- Yes 1 tab PO Uni vers TARTRATE 50 2-01 BID ity of MG ORAL TAB 21:46: [address] NITROGLYCER 2018- Yes 1 tab SL Un ree IN 0.4 MG 2-01 q5min prn ity o f SL SUBL 21:46: [address] PYRIDOXINE 2019- Yes 1 tab Qmon U nivers 50 MG ORAL 2-01 & thurs ity of TAB 21:46: DOT [address] ISONIAZID 2019- Yes 1 tab PO Univ ers 300 MG ORAL 2-01 Qmon & ity of TAB 21:46: thurs DOT [address] ENALAPRIL 2018-0 Yes 1 tab PO Univ ers MALEATE 5 2-01 daily ity of MG ORAL TAB 21:46: [address] GLYBURIDE 5 Yes 1 tab PO Un ree MG ORAL TAB 2-01 BID ity of 21:46: [address] METOPROLOL 2018-0 Yes 1 tab PO Uni vers TARTRATE 50 2-01 BID ity of MG ORAL TAB 21:46: [address] Branch PRAVASTATIN Yes 1 Tab Oral Univers 20 MG ORAL 5-30 QHS ity of TAB 00:00: [place] [address] Medical Branch ASPIRIN 81 Yes 1 tab PO Uni vers MG ORAL 5-30 daily ity of CHEW 00:00: [place] [address] Medical Branch ISOSORBIDE Yes 1 tab PO Uni vers MONONITRATE 5-30 daily ity of 30 MG ORAL 00:00: [place] [address] Medical Branch PRAVASTATIN Yes 1 Tab Oral Univers 20 MG ORAL 5-30 QHS ity of TAB 00:00: [place] [address] Medical Branch ASPIRIN 81 Yes 1 tab PO Uni vers MG ORAL 5-30 daily ity of CHEW 00:00: [place] [facility] ISOSORBIDE Yes 1 tab PO Uni vers MONONITRATE 5-30 daily ity of 30 MG ORAL 00:00: [place] [address] Medical Branch PRAVASTATIN Yes 1 Tab Oral Univers 20 MG ORAL 5-30 QHS ity of TAB 00:00: [place] [facility] ASPIRIN 81 Yes 1 tab PO Uni vers MG ORAL 5-30 daily ity of CHEW 00:00: [place] [facility] ISOSORBIDE Yes 1 tab PO Uni vers MONONITRATE 5-30 daily ity of 30 MG ORAL 00:00: [place] [address] Medical Branch PRAVASTATIN Yes 1 Tab Oral Univers 20 MG ORAL 5-30 QHS ity of TAB 00:00: [place] [facility] ASPIRIN 81 Yes 1 tab PO Uni vers MG ORAL 5-30 daily ity of CHEW 00:00: [place] [facility] ISOSORBIDE Yes 1 tab PO Uni vers MONONITRATE 5-30 daily ity of 30 MG ORAL 00:00: [place] [address] Medical Branch Vital Signs Vital Name Observation Time Observation Value Comments Source Systolic blood 2020-11-16 23:39:00 122 mm[Hg] Univer sity of pressure [facility] Diastolic blood 2020-11-16 23:39:00 67 mm[Hg] Unive rsity of pressure [facility] Heart rate 2020-11-16 23:39:00 58 /min [facility] Body temperature 2020-11-16 23:39:00 37.11 Naye [facility] Respiratory rate 2020-11-16 23:39:00 16 /min [facility] Oxygen saturation in 2020-11-16 23:39:00 97 /min [facility] blood by [facility] Pulse oximetry Branch Body weight 2020-11-16 22:30:00 66.679 kg [facility] BMI 2020-11-16 22:30:00 23.02 kg/m2 [facility] Procedures Procedure Date / Time Performed Performing Clinician Sourc e ASSIGNMENT OF BENEFITS 2020-11-11 21:46:13 Doctor Unassigned, No [facility] Encounters Start End Encounter Admission Attending Care Care Encounter Source Date/Time Date/Time Type Type Clinicians Facility Department ID 2021-05-24 Outpatient [id number] [facility] RE[facility] [id number] [facility] 08:29:01 0308 2021-04-22 Outpatient Pardo, [facility] [id number] 09:46:01 [facility] 2021-04-21 Outpatient Pardo, [facility] [id number] 09:16:01 [facility] 2021-04-13 Outpatient Pardo, [facility] [id number] 14:26:16 [id number] 2021-04-13 Outpatient Pardo, [facility] [id number] 13:52:35 [facility] [id number] [facility] 2021-04-13 Outpatient Pardo, [facility] [id number] 13:20:29 [facility] [address] [facility] 2021-04-13 Outpatient Pardo, [facility] [id number] 13:14:49 [facility] [address] [facility] 2021-04-13 Outpatient Pardo, [facility] [id number] 13:14:00 [facility] [address] [facility] 2021-04-13 Outpatient Pardo, [facility] [id number] 13:06:22 [facility] [address] [facility] 2021-04-13 Outpatient Pardo, [facility] [id number] 12:42:00 [place] 6[address] [facility] 2021-04-13 Outpatient Pardo, [facility] 12:41:40 [facility] [id number] [facility] 2021-04-13 Outpatient Pardo, [facility] 12:31:36 [facility] [address] [facility] 2021-04-28 2021-04-28 ambulatory [facility] [id number] [facility] 2021-04-27 2021-04-27 ambulatory [facility] [id number] [facility] 2021-04-22 2021-04-22 ambulatory [facility] [id number] [facility] 2021-04-08 2021-04-08 ambulatory [facility] [id number] [facility] 2021-03-04 2021-03-04 ambulatory [facility] [id number] [facility] 2020-12-28 2020-12-28 Outpatient [facility] [id number] [facility] 2020-12-15 2020-12-15 Outpatient [facility] [id number] [facility] 2020-12-10 2020-12-10 Outpatient [facility] [id number] [facility] 2020-11-16 2020-11-16 Nurse Therapy, Rajinder Cordero [facility] 1.2. [id number] Univers 17:20:37 18:20:37 Visit Olesya Mason [facility] [id number] ity of [place] [id number] Edgardo as Junito?Blea [id number] [address] Medical Office Building 2020-11-16 2020-11-16 Outpatient [facility] [id number] Univers 17:30:00 17:30:00 [id number] [facility] [place] 2020-11-16 2020-11-16 [facility] [id number] Univers 17:30:00 17:30:00 [place] [facility] 2020-11-15 2020-11-15 Outpatient [facility] [id number] [facility] St 00:00:00 00:00:00 [facility] Outpati ent Clinics 2020-11-12 2020-11-12 Telephone ELICIA Lopez [id number] Univers 00:00:00 00:00:00 Raegan [facility] [id number] it y of [facility] [id number] Edgardo as [phone] [address] 2020-11-11 2020-11-11 Outpatient R [facility] [id number] Univers 17:00:00 17:00:00 [id number] [facility] [place] 2020-11-11 2020-11-11 Outpatient R DIDIER [facility] [id number] Univers 17:00:00 17:00:00 MILESZOILA [facility] [place] 2020-11-11 2020-11-11 Laboratory Only, Rajinder Db Test [facility] 1.2.8 [id number] [id number] Univers 16:46:25 16:56:25 Only Didier [facility] [id number] ity of [place] [id number] Edgardo as Junito?Blea [id number] Sc gerber blade [address] Medical Office Building 2020-11-11 2020-11-11 Orders Doctor ELICIA [id number] Univers 00:00:00 00:00:00 Only Unassigned, MELECIO [id number] ity of [place] [facility] [id number] Edgardo as [id number] [address] 2020-09-15 2020-09-15 Outpatient [facility] [id number] [facility] 2020-09-08 2020-09-08 Out[facility] [id number] [facility] 2020-09-01 2020-09-01 Outpatient [facility] [id number] [facility] 2020-08-30 2020-08-30 Out[facility] [id number] [facility] 2020-08-27 2020-08-27 Outpatient [facility] [id number] [facility] 2020-08-06 2020-08-06 Out[facility] [id number] [facility] 2020-08-06 2020-08-06 Out[facility] [id number] [facility] 2020-06-23 2020-06-23 Outpatient [facility] [id number] [facility] 2020-06-04 2020-06-04 Outpatient [facility] [id number] [facility] 2020-06-04 2020-06-04 Outpatient [facility] [id number] [facility]00 [facility] 2019-02-03 2019-02-03 AppointLEEANNA Agudelo UTP UTP [id number] Univers 11:30:00 11:30:00 t; MERCADO, ity of [place]NA [facility] 2018-12-13 2018-12-13 Outpatient [facility] [id number] [facility] 14:16:00 14:16:00 2018-06-28 2018-06-28 Appointmen LEEANNA MERCADO UTP UTP [id number] Univers 10:00:00 10:00:00 t; MERCADO, ity of [place] 2017-12-28 2017-12-28 Appointmen LEEANNA MERCADO UTP UTP [id number] Univers 10:30:00 10:30:00 t; MERCADO, ity of [place] 2017-09-28 2017-09-28 Appointmen LEEANNA MERCADO UTP UTP [id number] Univers 10:30:00 10:30:00 t; MERCADO, ity of [place] 2017-09-14 2017-09-14 Appointmen LEEANNA MERCADO UTP UTP [id number] Univers 08:00:00 08:00:00 t; MERCADO, ity of [place] 2017-08-31 2017-08-31 Appointmen LEEANNA MERCADO UTP UTP [id number] Univers 11:00:00 11:00:00 t; MERCADO, [facility] [place] Physici ans Results Test Description Test Time Test Comments Results Result [facility] e Comments SURG 2019-01-10 15:30:00 ----RUN DATE: 01/10/19 [facility] PAGE 1 RUN TIME: 1530 Specimen Inquiry RUN USER: INTERFACE ----PATIENT: MATIAS CODY LOC: MAGDALENO U #: [id number] AGE/SX: 68/M ROOM: RE01/07/19REG DR: Macho Galeano MD : 51 BED: DIS: STATUS: [facility] TLOC: ---- SPEC #: [id number] RECD: 01/07/19 STATUS: ROBERT REQ #: [id number] TRINA: 01/07/19 [facility] DR: Macho Galeano MD ENTERED: 01/07/19 SP TYPE: SURG OTHR DR: Hayley Eric MD ORDERED: SURG PATH LVL 06/18 COPIES TO: Hayley Eric MD [address] [place], [place] [address] Macho Galeano MD [address] [place] [address] HISTOLOGY: TISSUE ID BLK PCS CHAVO LEV PROCEDURE DISPOSITION ____ ___ ___ ___ DUODENUM, NOS A 1 2 STOMACH, NOS B 1 2 PROCEDURES: SURG PATH LVL 4 (01/07/19) TISSUES: A. DUODENUM, NOS - DUODENUM BIOPSY B. STOMACH, NOS - STOMACH BIOPSY CLINICAL HISTORY LAM'S -530.85; DIVERTICULOSIS -K57.30 CPT CODES CPT CODE(S): 79183L5 , 39396 , 05657 , , , , FINAL DIAGNOSIS A. Small intestine, duodenum, biopsy: DUODENUM WITH UNREMARKABLE VILLI B. Stomach, biopsy: MILD CHRONIC GASTRITIS NEGATIVE FOR INTESTINAL METAPLASIA, DYSPLASIA, OR MALIGNANCY NEGATIVE FOR HELICOBACTER PYLORI ORGANISMS CONTINUED ON NEXT PAGE ----RUN DATE: 01/10/19 [facility] PAGE 2 RUN TIME: 1530 Specimen Inquiry RUN USER: INTERFACE ----SPEC #: [id number] PATIENT: MATIAS CODY #[id number] (Continued) GROSS DESCRIPTION A. Duodenal biopsy. Received in formalin are three coburn tissue fragments, 0.1 - 0.3 cm, all as A. B. Stomach biopsy. Received in formalin are seven coburn tissue fragments, 0.1 - 0.5 cm, all as B. wil/nr Grossing performed at [facility] Pathology, [address] [place] [address], [address], [place] [address]. Cross Country/Track And Field Coach: Chandan Escobedo M.D. MICROSCOPIC DESCRIPTION A. Duodenal [...] Test Item Value Reference Range Interpretation Comme [facility] GLUCOSE BEDSIDE TESTING (test code = GLUBED) 80 mg/dL 70-110 N BASIC METABOLIC [id number] 16:45:00 Test Item Value Reference Range Interpretation [...] CA) 8.7 MG/DL 8.5-10.1 N CBC W/AUTO [id number] 16:35:00 Test Item Value Reference Range Interpretation [...]
[2021-05-24] MEDS: INSULIN -REGULAR HUMAN 50 UNIT/0.5 ML ML SQ SCH ×3 (11:30→20:59)
[2021-05-24] MEDS ORDERED: CEFAZOLIN 1 GM in NA CHLORIDE 0.9% 50 ML IVPB SCH (12:00)
--- NOTE | 2021-05-24 12:47 | OP ---
Date of Procedure: 05/24/2021 Surgeon: Herman Butler MD Preoperative Diagnosis: Left hip arthritis. Postoperative Diagnosis: Left hip arthritis. Procedure: Left total hip arthroplasty using the Tejas system. Estimated Blood Loss: 150 cc. Complications: There were no complications. Pathology Specimen: No pathology specimen sent. Indications For Operation: Mr. Callejas is a patient, whom I have been seen for quite some time. He has been having continued complaints of pain related to his left hip. He also has multiple other mus culoskeletal complaints. He also does appear to suffer from some degree of decreased mentation; baljeet walls, given his continued complaints of hip pain as well as some arthritic changes in the hip, the ris ks, benefits, and alternatives to total hip arthroplasty are discussed with him. He has been request ing this for quite some time and he agrees to proceed. Description Of Procedure: The patient was taken to the operating room and placed in the supine posit ion. General anesthesia was obtained by staff. Following this, he was then rolled right side down. His left lower extremity was then prepped and draped in the usual sterile fashion procedure. Follow ing this, a standard posterior lateral incision was taken down carefully through skin and soft tissue s. Meticulous hemostasis being maintained using Bovie electrocautery. This leads down to the fascia . A small stab was made in the fascia. Gluteal tendon was palpated to ensure the correct position. This was then brought up to the tip of the greater trochanter and then gently curved backwards to th e gluteus poncho muscles, which were spread using finger pressure. The sciatic nerve was palpated a nd the Charnley was placed. The bursa was excised and the external rotators and capsule were then re moved from the hip and tagged for later repair. The hip was then dislocated. He does have some degr ee of arthritic changes and change in shape. The neck was then cut. At this time, it has noticed th at he has extremely soft bone, very similar to those that would be encountered in a fragility fractur e and care was taken to avoid bony trauma. The acetabulum was exposed. The soft tissue was removed. The labrum was removed. Following this, the head was sized to a size 50. It was then reamed with care being taken not to over ream as the bone was extremely soft. There was extremely good bleeding bed. The cup selected the size 52 was then put in place, did appear to be a little bit vertical, may be a little bit over anteverted, but is left in place as the femur was then prepared using a box cutt er as well as broaching to a size 6. An x-ray was taken, which revealed good size of the stem. ____ could be possible; however, again we referenced the patient's bone and appears to be quite fra gile. The cup itself does appear to be a little vertical and retroverted. Because the patient's men tation, decision was made to adjust the cup in a little bit more horizontal position and also stuart mednoza was made to proceed with a high offset stem as we do not overly weaken him; however, we do want him as stable as possible. was placed after a second x-ray and is again ingested a little, b ut visually given those 2 references, it appears to be in appropriate position. The trial ball was t hen placed being a standard. This goes in with a little difficulty, but does have a little inferior Shuck. Decision was made to move forward with +3. A +3 [address] was in place and it is extremel y difficult to get this reduced given its high offset nature, but we were able to get it reduced. We did just a cup little and take a little more of the anteversion out of it to allow to move past the lip. After this, including full flexion, adduction, and internal rotation. Does not appe ar to have any problems with anterior displacement either. The wound was then irrigated and the caps ule and external rotators were then repaired back to the trochanter. This was again irrigated and th e fascia was closed in a watertight fashion followed by closure of the skin with Vicryl and glendy. The patient was then placed in Aquacel dressing and awakened. He was taken to recovery room. VLADIMIR Voice ID: [id number] Report ID: [id number]
[2021-05-24 13:29] VITALS: BMI 31.5
--- NOTE | 2021-05-24 16:43 | P.CNS ---
Date of Consult: 05/24/21 Reason for Consult: Medical management Requesting Physician: Herman Butler Primary Care Provider: Dr. Monica Pardo Chief Complaint: Left MINH History of Present Illness: Patient is a 71yo who presented to the hospital for left MINH. Patient has a history of HTN, DM2, dyslipidemia, and Allergies No Known Drug Allergies Allergy (Verified 05/20/21 13:13) Unknown Home Medications: Amlodipine [Norvasc*] 1 tab PO DAILY 05/20/21 Aspirin [Aspirin EC 81 MG] 1 tab PO DAILY 05/20/21 Atorvastatin Calcium [Lipitor] 1 tab PO DAILY 05/20/21 Donepezil [Aricept*] 10 mg PO BID 05/20/21 Memantine HCl 1 tab PO BID 05/20/21 Metoprolol Tartrate [Lopressor*] 1 tab PO DAILY 05/20/21 Multivit with Iron,Minerals [Multivitamins with Iron] 1 tab PO DAILY 05/20/21 Pantoprazole [Protonix Tab*] 1 tab PO DAILY 05/20/21 Sertraline [Zoloft*] 1 tab PO DAILY 05/20/21 Ubidecarenone [Co Q-10] 1 tab PO DAILY 05/20/21 lisinopriL [Lisinopril] 1 tab PO DAILY 05/20/21 - Past Medical/Surgical History Diabetic: Yes -: HTN -: HLD -: NIDDM -: 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
[2021-05-24 17:34] LABS: Hematocrit 37.5 % (39.6-49.0)
[2021-05-24] MEDS: CEFAZOLIN 1 GM in NA CHLORIDE 0.9% 50 ML IVPB SCH (20:33)
[2021-05-24 21:33] VITALS: O2SAT 94
[2021-05-25] MEDS: CEFAZOLIN 1 GM in NA CHLORIDE 0.9% 50 ML IVPB SCH (02:21)
[2021-05-25 04:22] LABS: Absolute Lymphocytes (CBC) 0.8 K/uL (0.7-4.9); MPV 9.6 fL (7.6-11.3); RBC Red Blood Cell Count 3.81 M/uL (4.33-5.43)
[2021-05-25 04:37] LABS: BUN Blood Urea Nitrogen 20 mg/dL (7-18); Bicarbonate 25 mmol/L (21-32); Glucose Level 132 mg/dL (74-106); Sodium Level 141 mmol/L (136-145)
[2021-05-25 05:04] LABS: Blood Morphology Comment NOT SEEN (NOT SEEN); Platelet Estimate ADEQ
[2021-05-25] MEDS: INSULIN -REGULAR HUMAN 50 UNIT/0.5 ML ML SQ SCH ×3 (07:30→16:30)
[2021-05-25] MEDS ORDERED: ENOXAPARIN 40 MG/0.4 ML SQ SCH (09:00)
[2021-05-25 16:40] VITALS: BP 152/66; TEMP 99.3
[2021-05-25] MEDS ORDERED: HYDROCODONE/APAP 7.5/325 MG TAB PO PRN (18:10)
== END 2021-05-25 19:37 ==
LOC: OR 05:48 → 2ND 10:29
PROVIDERS: ADMIT Orthopaedic Surgery; ATTEND Orthopaedic Surgery
PROC: 0SRB02A Replacement of Left Hip Joint with Metal on Polyethylene Synthetic Substitute, Uncemented, Open Approach (ICD-10-PCS; principal; 2021-05-24 07:30)
DX: M16.12 Unilateral primary osteoarthritis, left hip (principal); I10 Essential (primary) hypertension; E11.9 Type 2 diabetes mellitus without complications; E78.5 Hyperlipidemia, unspecified; E78.00 Pure hypercholesterolemia, unspecified; I25.10 Atherosclerotic heart disease of native coronary artery without angina pectoris; H54.40 Blindness, one eye, unspecified eye; H91.92 Unspecified hearing loss, left ear; F03.90 Unspecified dementia, unspecified severity, without behavioral disturbance, psychotic disturbance, mood disturbance, and anxiety; I25.2 Old myocardial infarction; K21.9 Gastro-esophageal reflux disease without esophagitis; F17.210 Nicotine dependence, cigarettes, uncomplicated; Z79.82 Long term (current) use of aspirin; Z79.899 Other long term (current) drug therapy; Z88.2 Allergy status to sulfonamides; Z20.822 Contact with and (suspected) exposure to COVID-19; Z96.659 Presence of unspecified artificial knee joint; Z95.5 Presence of coronary angioplasty implant and graft; Z86.010 Personal history of colon polyps; Z94.7 Corneal transplant status; Z82.49 Family history of ischemic heart disease and other diseases of the circulatory system; Z83.3 Family history of diabetes mellitus; Z80.3 Family history of malignant neoplasm of breast; Z80.41 Family history of malignant neoplasm of ovary; Z82.61 Family history of arthritis
CPT/HCPCS: 27130; 93005; 85025 ×2; 80048; 36415 ×2; 86900; 86850; 85610; 86901; 82947 ×8; 88304; 88311; 85730; 85018 ×2; 85014 ×2; 81003; 80053; 71046; 73500; 97110; 97116 ×2; 97161; 97530 ×2; U0003; J2704 ×5; J1650; J3010; J1100; J2795; J0690 ×4; J7030 ×2; G0379; G0378 ×2; J2250

== ENCOUNTER 2021-06-12 11:40 | Emergency (ER) | payer OTHER ==
--- OUTSIDE RECORDS SUMMARY | 2021-06-12 11:43 | XMS REPORT | Continuity of Care Document ---
:1950 Author Organization [facility] t Address [address] [place] [address] Care Team Providers Name Role Phone HernestoCollins chopra Primary Care Physician Jack Pardo Attending Clinician Unavailable [id number] Attending Clinician Unavailable Taz Ballesteros Attending Clinician Unavailable Therapy, [facility] Attending Clinician Unavailable Francisca HOTEL RESERVATION AGENT Attending Clinician FRANCISCA Attending Clinician Unavailable John ALEXIS Attending Clinician Unavailable EBRAHIM Attending Clinician Unavailable Only, Db Test Attending Clinician Unavailable Ebrapat HOTEL RESERVATION AGENT Attending Clinician Doctor Unassigned, Name Attending Clinician Unavailable MERCADO Attending Clinician Unavailable [id number] Admitting Clinician Unavailable Taz Ballesteros Admitting Clinician Unavailable Payers Payer Name Policy Type Policy Effective Date Expiration Source Number Date [facility] [id number] MEDICAREMEDICARE PART [id number] 2009 Un iversity of A & 00:00:00 [facility] [id number] 2009- [facility] [id number] FREDA AVENDANO [phone] LIFE INS COUSAA [id number] 2017 Univ ersity of LIFE INS 00:00:00 [facility] [id number] 2017 [facility] -PresentIndemnity Problems Condition Condition Condition Status Onset Resolution Last Treating Co mments Source Name Details Category Date Date Treatment Clinician Date Post-op Post-op Disease Active 2019-0 Univers pain pain 1-30 ity of 00:00: [address] Allergies, Adverse Reactions, Alerts Allergy Allergy Status Severity Reaction(s) Onset Inactive Treating Comm ents Source Name Type Date Date Clinician No Known DA Active U 2018-03 [facility] All[facility]ie 0-18 [place] [facility] Sulfa DA Active U 2018-03 [facility] (Sulfona 0-18 [place] mide 00:00: d Antibiot 00 Medical ics) Center Sulfa Propensi Active Hives 2018-0 Univers (Sulfona ty to 1-30 ity of mide adverse 00:00: [place] Antibiot reaction 00 Medica l ics) s Branch SULFA Drug Active Med Hives 2018-0 Univers (SULFONA Class 1-30 ity of MIDE 00:00: [place] ANTIBIOT 00 Medical ICS) Branch Social History Social Habit Start Date Stop Date Quantity Comments Source Exposure to Not sure [facility] SARS-CoV-2 (event) [facility] History of tobacco Cigarette Smoker University of use [facility] Alcohol intake 2020-11-16 2020-11-16 Current drinker Unive rsity of 00:00:00 00:00:00 of alcohol [facility] (finding) Branch Cigarettes smoked 2020-11-16 2020-11-16 Univers ity of current (pack per 00:00:00 00:00:00 ) - Reported Branch Cigarette 2020-11-16 2020-11-16 University of pack-years 00:00:00 00:00:00 [facility] Tobacco use and 2020-11-16 2020-11-16 Never used Universit y of exposure 00:00:00 00:00:00 [facility] Tobacco Comment 2018-04-11 2018-04-11 less than half a Uni versity of 00:00:00 00:00:00 pack [facility] Alcohol Comment 2007-08-14 2007-08-14 6 pack per week Univ ersity of 00:00:00 00:00:00 x 30 years [facility] Sex Ass[birth year] Universit y of 00:00:00 00:00:00 [facility] Smoking Status Start Date Stop Date Source Current every day smoker 2020-11-16 00:00:00 Uni versity of [facility] Medications Ordered Filled Start Stop Current Ordering Indication Dosage Frequency Signature Comments Components Source Medication Medication Date Date Medication? Clinician (SIG) Name Name casirivimab 2020- No [id number] 1200mg Univers -imdevimab 11-16 ity of (REGEN-COV 22:45: 22:42 [place] ([facility])) 00 :00 Medical injection Branch 1,200 mg casirivimab 2020- No [id number] 1200mg 1,200 mg, Univers -imdevimab 11-16 Subcutaneo it y of (REGEN-COV 22:45: 22:42 , ONCE, [place] ([place] 00 :00 1 dose, Medical injection Tue Branch 1,200 mg 11/16/20 at 1745, Routine NITROGLYCER Yes 1 tab SL Un ree IN 0.4 MG 11-16 q5min prn ity o f SL SUBL 22:32: [address] PYRIDOXINE Yes 1 tab Qmon U nivers 50 MG ORAL 8- & thurs ity of TAB 22:32: DOT [address] ISONIAZID Yes 1 tab PO Univ ers 300 MG ORAL 8- Qmon & ity of TAB 22:32: thurs DOT [address] ENALAPRIL Yes 1 tab PO Univ ers MALEATE 5 - daily ity of MG ORAL TAB 22:32: [address] GLYBURIDE 5 Yes 1 tab PO Un ree MG ORAL TAB 8-31 BID ity of 22:32: [place] 30 Medical Branch METOPROLOL 0 Yes 1 tab PO Uni vers TARTRATE 50 8-31 BID ity of MG ORAL TAB 22:32: [place] 30 Medical Branch ondansetron Yes [id number] 8mg Take 1 Univers (ZOFRAN) 8 2-19 tablet by ity of mg tablet 00:00: mouth [place] 00 every 8 Medical (eight) Branch hours as needed for Nausea and Vomiting (N/V). clindamycin Yes [id number] 300mg Take 1 Univers 300 mg 2-19 capsule by ity of capsule 00:00: mouth [place] (four) Medical times Branch daily. ondansetron Yes [id number] 8mg Take 1 Univers (ZOFRAN) 8 2-19 tablet by ity of mg tablet 00:00: mouth [place] 00 every 8 Medical (eight) Branch hours as needed for Nausea and Vomiting (N/V). clindamycin Yes [id number] 300mg Take 1 Univers 300 mg 2-19 capsule by ity of capsule 00:00: mouth [place] ([facility]) Medical times Branch daily. ondansetron Yes [id number] 8mg Take 1 Univers (ZOFRAN) 8 2-19 tablet by ity of mg tablet 00:00: mouth [place] 00 every 8 Medical (eight) Branch hours as needed for Nausea and Vomiting (N/V). clindamycin Yes [id number] 300mg Take 1 Univers 300 mg 2-19 capsule by ity of capsule 00:00: mouth [place] ([facility]) Medical times Branch daily. ondansetron Yes [id number] 8mg Take 1 Univers (ZOFRAN) 8 2-19 tablet by ity of mg tablet 00:00: mouth [place] 00 every 8 Medical (eight) Branch hours as needed for Nausea and Vomiting (N/V). clindamycin Yes [id number] 300mg Take 1 Univers 300 mg 2-19 capsule by ity of capsule 00:00: mouth [place] ([facility]) Medical times Branch daily. NITROGLYCER Yes 1 tab SL Un ree IN 0.4 MG 2-01 q5min prn ity o f SL SUBL 21:46: [place] [address] Medical Branch PYRIDOXINE 2018- Yes 1 tab Qmon U nivers 50 MG ORAL 2-01 & thurs ity of TAB 21:46: DOT [address] ISONIAZID 2019- Yes 1 tab PO Univ ers 300 MG ORAL 2-01 Qmon & ity of TAB 21:46: thurs DOT [address] ENALAPRIL 2018- Yes 1 tab PO Univ ers MALEATE 5 2-01 daily ity of MG ORAL TAB 21:46: [address] GLYBURIDE 5 2018- Yes 1 tab PO Un ree MG ORAL TAB 2-01 BID ity of 21:46: [address] METOPROLOL 2019- Yes 1 tab PO Uni vers TARTRATE 50 2-01 BID ity of MG ORAL TAB 21:46: [address] NITROGLYCER 2018- Yes 1 tab SL Un ree IN 0.4 MG 2-01 q5min prn ity o f SL SUBL 21:46: [address] PYRIDOXINE Yes 1 tab Qmon U nivers 50 MG ORAL 2-01 & thurs ity of TAB 21:46: DOT [address] ISONIAZID 2019- Yes 1 tab PO Univ ers 300 MG ORAL 2-01 Qmon & ity of TAB 21:46: thurs DOT [address] ENALAPRIL 2018- Yes 1 tab PO Univ ers MALEATE 5 2-01 daily ity of MG ORAL TAB 21:46: [address] GLYBURIDE 5 Yes 1 tab PO Un ree MG ORAL TAB 2-01 BID ity of 21:46: [address] METOPROLOL 2019- Yes 1 tab PO Uni vers TARTRATE 50 2-01 BID ity of MG ORAL TAB 21:46: [address] NITROGLYCER 2019- Yes 1 tab SL Un ree IN 0.4 MG 2-01 q5min prn ity o f SL SUBL 21:46: [address] PYRIDOXINE 2019- Yes 1 tab Qmon U nivers 50 MG ORAL 2-01 & thurs ity of TAB 21:46: DOT [address] ISONIAZID 2018-0 Yes 1 tab PO Univ ers 300 MG ORAL 2-01 Qmon & ity of TAB 21:46: thurs DOT [address] ENALAPRIL 2018-0 Yes 1 tab PO Univ ers MALEATE 5 2-01 daily ity of MG ORAL TAB 21:46: [address] GLYBURIDE 5 2018- Yes 1 tab PO Un ree MG ORAL TAB 2-01 BID ity of 21:46: [address] METOPROLOL 2018- Yes 1 tab PO Uni vers TARTRATE 50 2-01 BID ity of MG ORAL TAB 21:46: [address] PRAVASTATIN Yes 1 Tab Oral Univers 20 MG ORAL 5-30 QHS ity of TAB 00:00: [place] [address] Medical Branch ASPIRIN 81 Yes 1 tab PO Uni vers MG ORAL 5-30 daily ity of CHEW 00:00: [address] ISOSORBIDE Yes 1 tab PO Uni vers MONONITRATE 5-30 daily ity of 30 MG ORAL 00:00: [place] [address] Medical Branch PRAVASTATIN Yes 1 Tab Oral Univers 20 MG ORAL 5-30 QHS ity of TAB 00:00: [place] [address] Medical Branch ASPIRIN 81 Yes 1 tab PO Uni vers MG ORAL 5-30 daily ity of CHEW 00:00: [place] [address] Medical Branch ISOSORBIDE Yes 1 tab PO Uni vers MONONITRATE 5-30 daily ity of 30 MG ORAL 00:00: [place] [address] Medical Branch PRAVASTATIN Yes 1 Tab Oral Univers 20 MG ORAL 5-30 QHS ity of TAB 00:00: [place] [address] Medical Branch ASPIRIN 81 Yes 1 tab PO Uni vers MG ORAL 5-30 daily ity of CHEW 00:00: [place] [address] Medical Branch ISOSORBIDE Yes 1 tab PO Uni vers MONONITRATE 5-30 daily ity of 30 MG ORAL 00:00: [place] [address] Medical Branch PRAVASTATIN Yes 1 Tab Oral Univers 20 MG ORAL 5-30 QHS ity of TAB 00:00: [place] [address] Medical Branch ASPIRIN 81 Yes 1 tab PO Uni vers MG ORAL 5-30 daily ity of CHEW 00:00: [place] [address] Medical Branch ISOSORBIDE Yes 1 tab PO Uni vers MONONITRATE 5-30 daily ity of 30 MG ORAL 00:00: [place] [address] Medical Branch Vital Signs Vital Name Observation Time Observation Value Comments Source Systolic blood 2020-11-16 23:39:00 122 mm[Hg] Univer sity of pressure [facility] Diastolic blood 2020-11-16 23:39:00 67 mm[Hg] Unive rsity of pressure [facility] Heart rate 2020-11-16 23:39:00 58 /min [facility] Body temperature 2020-11-16 23:39:00 37.11 [facility] Respiratory rate 2020-11-16 23:39:00 16 /min [facility] Oxygen saturation in 2020-11-16 23:39:00 97 /min [facility] Arterial blood by [facility] Pulse oximetry Branch Body weight 2020-11-16 22:30:00 66.679 kg [facility] BMI 2020-11-16 22:30:00 23.02 kg/m2 [facility] Procedures Procedure Date / Time Performed Performing Clinician [facility] e ASSIGNMENT OF BENEFITS 2020-11-11 21:46:13 Doctor Unassigned, No [facility] Encounters Start End Encounter Admission Attending Care Care Encounter Source Date/Time Date/Time Type Type Clinicians Facility Department ID 2021-06-03 Outpatient Pardo, [facility] [id number] 08:46:01 [place] [address] [facility] 2021-06-01 Outpatient Pardo, [facility] [id number] 15:09:02 [place] [address] [facility] 2021-05-24 Outpatient [id number] [facility] RE[facility] [id number] [facility] 08:29:01 0308 2021-04-22 Outpatient Pardo, [facility] [id number] 09:46:01 [place] [facility] 2021-04-21 Outpatient Pardo, [facility] [id number] 09:16:01 [place] [facility] 2021-04-13 Outpatient Pardo, [facility] [id number] 14:26:16 [place] [address] [facility] 2021-04-13 Outpatient Pardo, [facility] [id number] 13:52:35 [place] [address] [facility] 2021-04-13 Outpatient Pardo, [facility] 13:20:29 [place] [address] [facility] 2021-04-13 Outpatient Pardo, [facility] 13:14:49 [place] [address] [facility] 2021-04-13 Outpatient Pardo, [facility] 13:14:00 [place] [id number] [facility] 2021-04-13 Outpatient Pardo, [facility] 13:06:22 [place] [address] [facility] 2021-04-13 Outpatient Pardo, [facility] 12:42:00 [place] [address] [facility] 2021-04-13 Outpatient Pardo, [facility] 12:41:40 [place] [address] [facility] 2021-04-13 Outpatient Pardo, [facility] 12:31:36 [place] [address] [facility] 2021-05-25 2021-06-09 Inpatient 3 Khalik, ENC[facility] ORJ [id number] [facility] 20:32:00 12:25:00 Taz 0309 2021-06-09 2021-06-09 ambulatory [facility] [id number] [facility] 2021-06-02 2021-06-02 ambulatory [facility] [id number] [facility] 2021-05-27 2021-05-27 ambulatory [facility] [id number] [facility] 2021-05-23 2021-05-23 ambulatory [facility] [id number] [facility] 2021-04-28 2021-04-28 ambulatory [facility] [id number] [facility] 2021-04-27 2021-04-27 ambulatory [facility] [id number] [facility] 2021-04-22 2021-04-22 ambulatory [facility] [id number] [facility] 2021-04-08 2021-04-08 ambulatory [facility] [id number] [facility] 2021-03-04 2021-03-04 ambulatory [facility] [id number] [facility] 2020-12-28 2020-12-28 Outpatient [facility] [id number] [facility] 2020-12-15 2020-12-15 Outpatient [facility] [id number] [facility] 2020-12-10 2020-12-10 Outpatient [facility] [id number] [facility] 2020-11-16 2020-11-16 Nurse Therapy, Rajinder Cordero [facility] 1.2. [id number] Univers 17:20:37 18:20:37 Visit [facility] [id number] Janette [id number] Degardo as Junito?Blea [phone] Me [address] Office Building 2020-11-16 2020-11-16 Outpatient [facility] [id number] Univers 17:30:00 17:30:00 [id number] ity [facility] 2020-11-16 2020-11-16 Outpatient R FRANCISCA [facility] [id number] Univers 17:30:00 17:30:00 MIRIAM ity [facility] 2020-11-15 2020-11-15 Outpatient [facility] [id number] [facility]00 [facility] 2020-11-12 2020-11-12 Telephone ELICIA Lopez [id number] Univers 00:00:00 00:00:00 Raegan MELECIO [id number] it y of HOSPITAL [id number] Edgardo as [phone] [facility] [address] [place] 2020-11-11 2020-11-11 Outpatient R [facility] [id number] Univers 17:00:00 17:00:00 [id number] ity [facility] 2020-11-11 2020-11-11 Outpatient R ABBIE [facility] [id number] Univers 17:00:00 17:00:00 [facility] 2020-11-11 2020-11-11 Laboratory Only, Ang Db Test [facility] 1.2.8 40.114 [id number] Univers 16:46:25 16:56:25 [facility] [id number] ity of [place] [id number] Edgardo as Junito?Blea [phone] Tn gerber [address] Medical Office Building 2020-11-11 2020-11-11 Orders Doctor ELICIA [id number] Univers 00:00:00 00:00:00 Only Unassigned, MELECIO [id number] ity of [place] [facility] [id number] Edgardo as [id number] [address] 2020-09-15 2020-09-15 Outpatient [facility] [id number] [facility] 2020-09-08 2020-09-08 Outpatient [facility] [id number] [facility] 2020-09-01 2020-09-01 Outpatient [facility] [id number] [facility] 2020-08-30 2020-08-30 Outpatient [facility] [id number] [facility] 2020-08-27 2020-08-27 Outpatient [facility] [id number] [facility] 2020-08-06 2020-08-06 Outpatient [facility] [id number] [facility] 2020-08-06 2020-08-06 Outpatient [facility] [id number] [facility] 2020-06-23 2020-06-23 Outpatient [facility] [id number] [facility] 2020-06-04 2020-06-04 Outpatient [facility] [id number] [facility] 2020-06-04 2020-06-04 Outpatient [facility] [id number] [facility] 2019-02-03 2019-02-03 LEEANNA William UTP [id number] Univers 11:30:00 11:30:00 t; edwardo [facility]CAD[facility] ans 2018-12-13 2018-12-13 Outpatient [facility] [id number] [facility] 14:16:00 14:16:00 2018-06-28 2018-06-28 LEEANNA William UTP [id number] Univers 10:00:00 10:00:00 t; edwardo MERCADO [facility] ans 2017-12-28 2017-12-28 AppointLEEANNA Agudelo [facility] UTP [id number] Univers 10:30:00 10:30:00 t; JESS, ity of LEEANNA Ravii ans 2017-09-28 2017-09-28 AppointLEEANNA Agudelo UTP [id number] Univers 10:30:00 10:30:00 t; MERCADO, ity of LEEANNA Ravi daniele 2017-09-14 2017-09-14 Appointmen LEEANNA MERCADO UTP UTP [id number] Univers 08:00:00 08:00:00 t; MERCADO, ity of LEEANNA Williamson [employer] daniele 2017-08-31 2017-08-31 AppointLEEANNA Agudelo UTP UTP [id number] Univers 11:00:00 11:00:00 t; JESS ity of LEEANNA [place] Breonna daniele Results Test Description Test Time Test Comments Results Result [facility] e Comments SURG 2019-01-10 15:30:00 ----RUN DATE: 01/10/19 [facility] PAGE 1 RUN TIME: 1530 Specimen Inquiry RUN USER: INTERFACE ----PATIENT: MATIAS CODY LOC: KATHERINEU U #: [id number] AGE/SX: 68/M ROOM: RE01/07/19REG DR: Macho Galeano MD : 51 BED: DIS: STATUS: DEP [facility] TLOC: ---- SPEC #: [id number] RECD: 01/07/19 STATUS: ROBERT ARTEAGA #: [id number] TRINA: 01/07/[address]: Macho Galeano MD ENTERED: 01/07/19 SP TYPE: SURG OTHR DR: Hayley Eric MD ORDERED: SURG PATH LVL 06/18 COPIES TO: Hayley Eric MD [address] [place] [address] Macho Galeano MD [address] [place] [address] HISTOLOGY: TISSUE ID BLK PCS CHAVO LEV PROCEDURE DISPOSITION ____ ___ ___ ___ DUODENUM, NOS A 1 2 STOMACH, NOS B 1 2 PROCEDURES: SURG PATH LVL 4 (01/07/19) TISSUES: A. DUODENUM, NOS - DUODENUM BIOPSY B. STOMACH, NOS - STOMACH BIOPSY CLINICAL HISTORY LAM'S -530.85; DIVERTICULOSIS -K57.30 CPT CODES CPT CODE(S): 88011C4 , 49364 , 98602 , , , , FINAL DIAGNOSIS A. Small intestine, duodenum, biopsy: DUODENUM WITH UNREMARKABLE VILLI B. Stomach, biopsy: MILD CHRONIC GASTRITIS NEGATIVE FOR INTESTINAL METAPLASIA, DYSPLASIA, OR MALIGNANCY NEGATIVE FOR HELICOBACTER PYLORI ORGANISMS CONTINUED ON NEXT PAGE ----RUN DATE: 01/10/19 [facility] PAGE 2 RUN TIME: 1530 Specimen Inquiry RUN USER: INTERFACE ----SPEC #: [id number] PATIENT: MATIAS CODY #[id number] (Continued) GROSS DESCRIPTION A. Duodenal biopsy. Received in formalin are three coburn tissue fragments, 0.1 - 0.3 cm, all as A. B. Stomach biopsy. Received in formalin are seven coburn tissue fragments, 0.1 - 0.5 cm, all as B. wil/nr Grossing performed at [facility] Pathology, [address] [place] [address], [address], [place] [address]. Summer Counselor: Chandan Escobedo M.D. MICROSCOPIC DESCRIPTION A. Duodenal [...] GLUBED) 80 mg/dL 70-110 N BASIC METABOLIC [id number] 16:45:00 Test Item Value Reference Range Interpretation [...] CA) 8.7 MG/DL 8.5-10.1 N CBC W/AUTO [id number] 16:35:00 Test Item Value Reference Range Interpretation [...]
[2021-06-12] MEDS ORDERED: ONDANSETRON 4 MG/2 ML VIAL ONE (12:24)
[2021-06-12] MEDS ORDERED: MORPHINE 4 MG/ML SYR ONE (12:24)
--- NOTE | 2021-06-12 12:33 | RAD REPORT ---
EXAM DESCRIPTION: CT - CTHCSPWOC - 06/12/2021 12:20 pm CLINICAL HISTORY: Trauma, head and neck injury. Headache COMPARISON: <Comparisons> TECHNIQUE: Axial 5 mm thick images of the head were obtained. Axial 2 mm thick images of the cervical spine were obtained with sagittal and coronal reconstruction images generated and reviewed. All CT scans are performed using dose optimization technique as appropriate and may include automated exposure control or mA/KV adjustment according to patient size. FINDINGS: CT HEAD WITHOUT CONTRAST: No acute hemorrhage, hydrocephalus or extra-axial collection is identified.No areas of brain edema or midline shift. Mild chronic small vessel ischemic changes. Age-appropriate cerebral atrophy. Trace maxillary sinus thickening.The calvarium is intact. CT CERVICAL SPINE WITHOUT CONTRAST: No fracture or subluxation.Trace anterolisthesis of C7 on T1 is noted. This is likely related to unde rlying degenerative changes. No evidence of traumatic malalignment. Multilevel cervical spondylosis i s identified with varying degrees of neural foraminal narrowing. This is most advanced at the end C4- 5, C5-6, and C6-7 levels. There is severe neural foraminal narrowing in particular at C4-5 bilaterall y. Mild central spinal stenosis is noted. Loss of the normal cervical lordosis is noted. Carotid jean-pierre ry calcifications. IMPRESSION: No acute intracranial or cervical spine findings.
--- NOTE | 2021-06-12 13:41 | EDPHYS ---
Physician Documentation [facility] Name: Gildardo Callejas Age: 71 yrs Sex: Male : 1950 Arrival Date: 06/12/2021 Time: 11:42 Bed 15 Private MD: ED Physician Hans Robison HPI: 06/12 11:59 This 71 yrs old Male presents to ER via EMS with complaints of Fall Injury. pm1 11:59 Details of fall: The patient fell from a height, Bed. Onset: The symptoms/episode pm1 began/occurred this morning. Associated injuries: The patient sustained Headache. Severity of symptoms: in the emergency department the symptoms are unchanged. The patient has been recently seen by a physician: Patient was just discharged [facility] yesterday for hip surgery. Patient has PT, OT, and home health visit tomorrow at his home. Patient with no other complaints except for headache. 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 - Social history:: Smoking status: Patient denies any tobacco usage or history of. ROS: 11:59 Constitutional: Negative for fever, chills, and weight loss, Cardiovascular: Negative pm1 for chest pain, palpitations, and edema, Respiratory: Negative for shortness of breath, cough, wheezing, and pleuritic chest pain, Abdomen/GI: Negative for abdominal pain, nausea, vomiting, diarrhea, and constipation, Back: Negative for injury and pain, MS/Extremity: Negative for injury and deformity, Skin: Negative for injury, rash, and discoloration. 11:59 Neuro: Positive for headache. 11:59 All other systems are negative. Exam: 11:59 Constitutional: This is a well developed, well nourished patient who is awake, alert, pm1 and in no acute distress. Head/Face: Normocephalic, atraumatic. 11:59 Chest/axilla: Normal chest wall appearance and motion. Nontender with no deformity. No lesions are appreciated. 11:59 Skin: Warm, dry with normal turgor. Normal color with no rashes, no lesions, and no evidence of cellulitis. MS/ Extremity: Pulses equal, no cyanosis. Neurovascular intact. Full, normal range of motion. 11:59 Neck: Exam negative for acute changes, C-spine: vertebral tenderness, is not appreciated, ROM/movement: is normal. 11:59 Cardiovascular: Exam negative for acute changes, Rate: normal, Rhythm: regular, Pulses: no pulse deficits are appreciated, Heart sounds: normal, normal S1and S2. 11:59 Respiratory: Exam negative for acute changes, respiratory distress, shortness of breath, Breath sounds: are clear throughout. 11:59 Neuro: Exam negative for acute changes, Orientation: is normal, Mentation: is normal, Motor: moves all fours. Vital Signs: 11:44 BP 184 / 92; Pulse 62; Resp 16; Temp 98; Pulse Ox 98% ; bp 14:35 BP 169 / 91; Pulse 70; Resp 17; Temp 98; Pulse Ox 98% ; bp MDM: 11:43 Patient medically screened. shantel 13:38 Data reviewed: vital signs. Data interpreted: Pulse oximetry: on room air is 98 %. pm1 Interpretation: normal. Counseling: I had a detailed discussion with the patient and/or guardian regarding: the historical points, exam findings, and any diagnostic results supporting the discharge/admit diagnosis, radiology results, the need for outpatient follow up, to return to the emergency department if symptoms worsen or persist or if there are any questions or concerns that arise at home. 06/12 11:56 Order name: CT Head C Spine; Complete Time: 12:35 pm1 Administered Medications: 12:30 Drug: morphine 4 mg Route: IVP; Site: left antecubital; bp 14:37 Follow up: Response: Pain is decreased bp 12:30 Drug: Zofran (Ondansetron) 4 mg Route: IVP; Site: left antecubital; bp 14:37 Follow up: Response: No adverse reaction bp Disposition Summary: 06/12/21 13:41 Discharge Ordered Location: Home pm1 Problem: new pm1 Symptoms: have improved pm1 Condition: Stable pm1 Diagnosis - Headache pm1 - Fall from bed, initial encounter pm1 Followup: pm1 - With: Emergency Department - When: As needed - Reason: Worsening of condition Followup: pm1 - With: Private Physician - When: 2 - 3 days - Reason: Recheck today's complaints, Continuance of care, Re-evaluation by your physician Discharge Instructions: - Discharge Summary Sheet pm1 - General Headache Without Cause pm1 - Fall Prevention in the Home, Adult pm1 Forms: - Medication Reconciliation Form pm1 - Thank You Letter pm1 - Antibiotic Education pm1 - Prescription Opioid Use pm1 Addendum: 06/15/2021 07:13 Co-signature as Attending Physician, Hans Robison MD I agree with the assessment and c wing plan of care. Signatures: Dispatcher [employer] [facility] Hans Robison MD MD cha Marinas, Patrick, BUILDING [employer]STRUCTION [employer]EM[employer] BUILDING [employer]STRUCTION FOREMAN pm1 Dustin Mcdaniel, RN RN bp
--- NOTE | 2021-06-12 13:41 | ER ---
Nurse's Notes [facility] Name: Gildardo Callejas Age: 71 yrs Sex: Male : 1950 Arrival Date: 06/12/2021 Time: 11:42 Bed 15 Private MD: Diagnosis: Headache;Fall from bed, initial encounter Presentation: 06/12 11:44 Chief complaint: EMS states: FALL LAST NIGHT FROM BED. Coronavirus screen: At this bp time, the client does not indicate any symptoms associated with coronavirus-19. Ebola Screen: No symptoms or risks identified at this time. Initial Sepsis Screen: Does the patient meet any 2 criteria? No. Patient's initial sepsis screen is negative. Does the patient have a suspected source of infection? No. Patient's initial sepsis screen is negative. Risk Assessment: Do you want to hurt yourself or someone else? Patient reports no desire to harm self or others. Note NO LOC, PT ON BLOOD THINNERS. Onset of symptoms is unknown. 11:44 Method Of Arrival: EMS: [facility] bp 11:44 Acuity: MORE 3 bp Triage Assessment: 11:45 General: Appears in no apparent distress. comfortable, Behavior is calm, cooperative, bp appropriate for age. Pain: Complains of pain in head and right elbow. EENT: No deficits noted. Neuro: Level of Consciousness is awake, alert, obeys commands, Oriented to Appropriate for age. Cardiovascular: No deficits noted. Respiratory: No deficits noted. GI: No signs and/or symptoms were reported involving the gastrointestinal system. : No signs and/or symptoms were reported regarding the genitourinary system. Derm: No deficits noted. Musculoskeletal: No deficits noted. 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 - Social history:: Smoking status: Patient denies any tobacco usage or history of. Screenin:45 Abuse screen: Denies threats or abuse. Denies injuries from another. Nutritional bp screening: No deficits noted. Tuberculosis screening: No symptoms or risk factors identified. Fall Risk None identified. Assessment: 11:45 General: SEE TRIAGE NOTE. bp 12:30 Reassessment: PT RETURNED FROM CT. bp 14:35 Reassessment: PT D/C HOME VIA W/C WITH FAMILY, DX WITH DREW. bp Vital Signs: 11:44 BP 184 / 92; Pulse 62; Resp 16; Temp 98; Pulse Ox 98% ; bp 14:35 BP 169 / 91; Pulse 70; Resp 17; Temp 98; Pulse Ox 98% ; bp ED Course: 11:42 Patient arrived in ED. ds1 11:43 Raimundo Theodore NP is PHCP. pm1 11:43 Hans Robison MD is Attending Physician. pm1 11:43 Dustin Mcdaniel, REUBEN is Primary Nurse. bp 11:45 Patient has correct armband on for positive identification. Bed in low position. Call bp light in reach. Side rails up X2. 11:45 Maintain EMS IV. Dressing intact. Good blood return noted. Site clean \\T\\ dry. Gauge \\T\\ bp site: 18 GAUGE LEFT AC. 11:48 Triage completed. bp 11:50 Arm band placed on. bp 12:22 CT Head C Spine In Process Unspecified. EDMS 14:35 No provider procedures requiring assistance completed. IV discontinued, intact, bp bleeding controlled, No redness/swelling at site. Pressure dressing applied. Administered Medications: 12:30 Drug: morphine 4 mg Route: IVP; Site: left antecubital; bp 14:37 Follow up: Response: Pain is decreased bp 12:30 Drug: Zofran (Ondansetron) 4 mg Route: IVP; Site: left antecubital; bp 14:37 Follow up: Response: No adverse reaction bp Outcome: 13:41 Discharge ordered by . pm1 14:35 Discharged to home via wheelchair, with family. bp 14:35 Condition: stable 14:35 Discharge instructions given to patient, family, Instructed on discharge instructions, follow up and referral plans. Demonstrated understanding of instructions, follow-up care. 14:37 Patient left the ED. bp Signatures: Dispatcher [employer] [facility] Shelby Diaz ds1 Raimundo Theodore NP [employer]ATIONS [employer]ICKETING AGENT pm1 Dustin Mcdaniel, RN RN bp
[2021-06-12 14:44] VITALS: TEMP 98; O2SAT 98
[2021-06-12 14:45] VITALS: BP 169/91
== END 2021-06-12 14:37 | disposition home or self-care (01) ==
LOC: ER 11:40
DX: R51.9 Headache, unspecified (principal); W06.XXXA Fall from bed, initial encounter; Y93.9 Activity, unspecified; Y92.013 Bedroom of single-family (private) house as the place of occurrence of the external cause; Z88.2 Allergy status to sulfonamides; F03.90 Unspecified dementia, unspecified severity, without behavioral disturbance, psychotic disturbance, mood disturbance, and anxiety; E11.9 Type 2 diabetes mellitus without complications; I10 Essential (primary) hypertension; I25.2 Old myocardial infarction
CPT/HCPCS: 70450; 72125; 96375; 96374; 99283; J2405

== ENCOUNTER 2021-07-29 15:25 | Emergency (ER) | payer OTHER ==
--- OUTSIDE RECORDS SUMMARY | 2021-07-29 15:29 | XMS REPORT | Continuity of Care Document ---
:1950 Author Organization [facility] t Address [address] [place] [address] Care Team Providers Name Role Phone Collins Eric Primary Care Physician Jack Pardo Attending Clinician Unavailable [id number] Attending Clinician Unavailable Taz Ballesteros Attending Clinician Unavailable Therapy, [facility] Attending Clinician Unavailable Francisca STRATEGIC PROCUREMENT MANAGER Attending Clinician FRANCISCA Attending Clinician Unavailable John ALEXIS Attending Clinician Unavailable EBRAHIM Attending Clinician Unavailable Only, Db Test Attending Clinician Unavailable Ebrahim STRATEGIC PROCUREMENT MANAGER Attending Clinician Doctor Unassigned, Name Attending Clinician Unavailable MERCADO Attending Clinician Unavailable [id number] Admitting Clinician Unavailable Taz Ballesteros Admitting Clinician Unavailable Payers Payer Name Policy Type Policy Effective Date Expiration Source Number Date [facility] [id number] MEDICAREMEDICARE PART [id number] 2009 Un iversity of A & 00:00:00 [facility] [id number] 2009- [facility] [phone] FREDA AVENDANO [phone] LIFE INS COUSAA [id number] 2017 Univ ersity of LIFE INS 00:00:00 [facility] [id number] 2017 [facility] -PresentIndemnity Problems Condition Condition Condition Status Onset Resolution Last Treating Co mments Source Name Details Category Date Date Treatment Clinician Date Post-op Post-op Disease Active 2019-0 Univers pain pain 1-30 ity of 00:00: [place] [address] [place] [address] Allergies, Adverse Reactions, Alerts Allergy Allergy Status Severity Reaction(s) Onset Inactive Treating Comm ents Source Name Type Date Date Clinician No Known DA Active U 2018-03 [facility] All[facility]ie 0-18 [place] [facility] Sulfa DA Active U 2018- [facility] (Sulfona 0-18 [place] mide 00:00: d Antibiot 00 Medical ics) Center Sulfa Propensi Active Hives 2019-0 Univers (Sulfona ty to 1-30 ity of mide adverse 00:00: [place] Antibiot reaction 00 Medica l ics) s Branch SULFA Drug Active Med Hives 2019-0 Univers (SULFONA Class 1-30 ity of MIDE 00:00: [place] ANTIBIOT 00 Medical ICS) Branch Social History Social Habit Start Date Stop Date Quantity Comments Source Exposure to Not sure [facility] SARS-CoV-2 (event) [facility] History of tobacco Cigarette Smoker University of use [facility] Alcohol intake 2020-11-16 2020-11-16 Current drinker Unive rsity of 00:00:00 00:00:00 of alcohol [facility] (finding) [place] Cigarettes smoked 2020-11-16 2020-11-16 Univers ity of current (pack per 00:00:00 00:00:00 [place] ) - Reported Branch Cigarette 2020-11-16 2020-11-16 University of pack-years 00:00:00 00:00:00 [place] [facility] Tobacco use and 2020-11-16 2020-11-16 Never used Universit y of exposure 00:00:00 00:00:00 [facility] Tobacco Comment 2018-04-11 2018-04-11 less than half a Uni versity of 00:00:00 00:00:00 pack [facility] Alcohol Comment 2007-08-14 2007-08-14 6 pack per week Univ ersity of 00:00:00 00:00:00 x 30 years [facility] Sex [birth year] At [birth year] Universit y of 00:00:00 00:00:00 [facility] Smoking Status Start Date Stop Date Source Current every day smoker 2020-11-16 00:00:00 Uni versity of [facility] Medications Ordered Filled Start Stop Current Ordering Indication Dosage Frequency Signature Comments Components Source Medication Medication Date Date Medication? Clinician (SIG) Name Name casirivimab 2020- No [id number] 1200mg Univers -imdevimab 11-16 ity of (REGEN-COV 22:45: 22:42 [place] (EUA)) 00 :00 Medical injection Branch 1,200 mg casirivimab 2020- No [id number] 1200mg 1,200 mg, Univers -imdevimab 11-16 Subcutaneo it y of (REGEN-COV 22:45: 22:42 , [place]CE, [place] (EUA[place] 00 :00 1 dose, Medical injection Tue Branch 1,200 mg 11/16/20 at 1745, Routine NITROGLYCER Yes 1 tab SL Un ree IN 0.4 MG 11-16 q5min prn ity o f SL SUBL 22:32: [address] PYRIDOXINE Yes 1 tab Qmon U nivers 50 MG ORAL 11-16 & thurs ity of TAB 22:32: DOT [address] ISONIAZID Yes 1 tab PO Univ ers 300 MG ORAL 11-16 Qmon & ity of TAB 22:32: thurs DOT [address] ENALAPRIL Yes 1 tab PO Univ ers MALEATE 5 11-16 daily ity of MG ORAL TAB 22:32: [address] GLYBURIDE 5 2021-0 Yes 1 tab PO Un ree MG ORAL TAB 8-31 BID ity of 22:32: [place] 30 Medical Branch METOPROLOL 2020-0 Yes 1 tab PO Uni vers TARTRATE 50 8-31 BID ity of MG ORAL TAB 22:32: [place] 30 Medical Branch ondansetron 2018- Yes [id number] 8mg Take 1 Univers (ZOFRAN) 8 2-19 tablet by ity of mg tablet 00:00: mouth [place] 00 every 8 Medical (eight) Branch hours as needed for Nausea and Vomiting (N/V). clindamycin Yes [id number] 300mg Take 1 Univers 300 mg 2-19 capsule by ity of capsule 00:00: mouth 4 [place] 00 (four) Medical times Branch daily. ondansetron Yes [id number] 8mg Take 1 Univers (ZOFRAN) 8 2-19 tablet by ity of mg tablet 00:00: mouth [place] 00 every 8 Medical (eight) Branch hours as needed for Nausea and Vomiting (N/V). clindamycin Yes [id number] 300mg Take 1 Univers 300 mg 2-19 capsule by ity of capsule 00:00: mouth 4 [place] 00 (four) Medical times Branch daily. ondansetron Yes [id number] 8mg Take 1 Univers (ZOFRAN) 8 2-19 tablet by ity of mg tablet 00:00: mouth [place] 00 every 8 Medical (eight) Branch hours as needed for Nausea and Vomiting (N/V). clindamycin 2018- Yes [id number] 300mg Take 1 Univers 300 mg 2-19 capsule by ity of capsule 00:00: mouth [place] 00 (four) Medical times Branch daily. ondansetron Yes [id number] 8mg Take 1 Univers (ZOFRAN) 8 2-19 tablet by ity of mg tablet 00:00: mouth [place] 00 every 8 Medical (eight) Branch hours as needed for Nausea and Vomiting (N/V). clindamycin 0 Yes [id number] 300mg Take 1 Univers 300 mg 2-19 capsule by ity of capsule 00:00: mouth 4 [place] 00 (four) Medical times Branch daily. NITROGLYCER 2018- Yes 1 tab SL Un ree IN 0.4 MG 2-01 q5min prn ity o f SL SUBL 21:46: [address] PYRIDOXINE 2019 Yes 1 tab Qmon U nivers 50 MG ORAL 2-01 & thurs ity of TAB 21:46: DOT [address] ISONIAZID 2019- Yes 1 tab PO Univ ers 300 MG ORAL 2-01 Qmon & ity of TAB 21:46: thurs DOT [address] ENALAPRIL Yes 1 tab PO Univ ers MALEATE 5 2-01 daily ity of MG ORAL TAB 21:46: [address] GLYBURIDE 5 Yes 1 tab PO Un ree MG ORAL TAB 2-01 BID ity of 21:46: [address] METOPROLOL Yes 1 tab PO Uni vers TARTRATE 50 2-01 BID ity of MG ORAL TAB 21:46: [address] NITROGLYCER 2018- Yes 1 tab SL Un ree IN 0.4 MG 2-01 q5min prn ity o f SL SUBL 21:46: [address] PYRIDOXINE Yes 1 tab Qmon U nivers 50 MG ORAL 2-01 & thurs ity of TAB 21:46: DOT [address] ISONIAZID Yes 1 tab PO Univ ers 300 MG ORAL 2-01 Qmon & ity of TAB 21:46: thurs DOT [address] ENALAPRIL Yes 1 tab PO Univ ers MALEATE 5 2-01 daily ity of MG ORAL TAB 21:46: [address] GLYBURIDE 5 Yes 1 tab PO Un ree MG ORAL TAB 2-01 BID ity of 21:46: [address] METOPROLOL 2019- Yes 1 tab PO Uni vers TARTRATE 50 2-01 BID ity of MG ORAL TAB 21:46: [address] NITROGLYCER 2018- Yes 1 tab SL Un ree IN 0.4 MG 2-01 q5min prn ity o f SL SUBL 21:46: [address] PYRIDOXINE 2018- Yes 1 tab Qmon U nivers 50 MG ORAL 2-01 & thurs ity of TAB 21:46: DOT [address] ISONIAZID 2018- Yes 1 tab PO Univ ers 300 MG ORAL 2-01 Qmon & ity of TAB 21:46: thurs DOT [address] ENALAPRIL 2018-0 Yes 1 tab PO Univ ers MALEATE 5 2-01 daily ity of MG ORAL TAB 21:46: [address] GLYBURIDE 5 Yes 1 tab PO Un ree MG ORAL TAB 2-01 BID ity of 21:46: [address] METOPROLOL Yes 1 tab PO Uni vers TARTRATE 50 2-01 BID ity of MG ORAL TAB 21:46: [address] PRAVASTATIN Yes 1 Tab Oral Univers 20 MG ORAL 5-30 QHS ity of TAB 00:00: [address] ASPIRIN 81 Yes 1 tab PO Uni vers MG ORAL 5-30 daily ity of CHEW 00:00: [address] Branch ISOSORBIDE Yes 1 tab PO Uni vers MONONITRATE 5-30 daily ity of 30 MG ORAL 00:00: [place] [address] Medical Branch PRAVASTATIN Yes 1 Tab Oral Univers 20 MG ORAL 5-30 QHS ity of TAB 00:00: [address] ASPIRIN 81 Yes 1 tab PO Uni vers MG ORAL 5-30 daily ity of CHEW 00:00: [place] [address] Medical Branch ISOSORBIDE Yes 1 tab PO Uni vers MONONITRATE 5-30 daily ity of 30 MG ORAL 00:00: [place] [address] Medical Branch PRAVASTATIN Yes 1 Tab Oral Univers 20 MG ORAL 5-30 QHS ity of TAB 00:00: [place] [address] Medical Branch ASPIRIN 81 Yes 1 tab PO Uni vers MG ORAL 5-30 daily ity of CHEW 00:00: [address] Branch ISOSORBIDE Yes 1 tab PO Uni vers MONONITRATE 5-30 daily ity of 30 MG ORAL 00:00: [place] [address] Medical Branch PRAVASTATIN Yes 1 Tab Oral Univers 20 MG ORAL 5-30 QHS ity of TAB 00:00: [place] [address] Medical Branch ASPIRIN 81 Yes 1 tab PO Uni vers MG ORAL 5-30 daily ity of CHEW 00:00: [address] Branch ISOSORBIDE Yes 1 tab PO Uni vers MONONITRATE 5-30 daily ity of 30 MG ORAL 00:00: [place] [address] Medical Branch Vital Signs Vital Name Observation Time Observation Value Comments Source Systolic blood 2020-11-16 23:39:00 122 mm[Hg] Univer sity of pressure [facility] Diastolic blood 2020-11-16 23:39:00 67 mm[Hg] Unive rsity of pressure [facility] Heart rate 2020-11-16 23:39:00 58 /min [facility] Body temperature 2020-11-16 23:39:00 37.11 [facility] Res[facility] rate 2020-11-16 23:39:00 16 /min Univ [facility] Oxygen saturation in 2020-11-16 23:39:00 97 /min [facility] Arterial blood by [facility] Pulse oximetry [place] Body weight 2020-11-16 22:30:00 66.679 kg [facility] BMI 2020-11-16 22:30:00 23.02 kg/m2 [facility] Procedures Procedure Date / Time Performed Performing Clinician Sour e ASSIGNMENT OF BENEFITS 2020-11-11 21:46:13 Doctor Unassigned, No General acute hospital Encounters Start End Encounter Admission Attending Care Care Encounter Source Date/Time Date/Time Type Type Clinicians Facility Department ID 2021-07-08 Outpatient Pardo, STLMLC STLC [id number] Common 08:51:03 [facility] 2021-07-06 Outpatient Pardo, STLMLC STLC [id number] Common 15:43:01 [facility] 2021-06-29 Outpatient Pardo, STLMLC STLC [id number] Common 11:00:03 [facility] 2021-06-23 Outpatient Pardo, STLMLC STLC [id number] Common 10:05:02 [facility] 2021-06-03 Outpatient Pardo, STLMLC STLMLC [id number] Common 08:46:01 [place] [facility] 2021-06-01 Outpatient Pardo, STLMLC STLC [id number] Common 15:09:02 [facility] 2021-05-24 Outpatient [id number] ENC[facility] REF [id number] ENCPL 08:29:01 0308 2021-04-22 Outpatient Pardo, STLMLC STLMLC [id number] Common 09:46:01 [place] [facility] 2021-04-21 Outpatient Pardo, STLMLC STLMLC [id number] Common 09:16:01 [place] [facility] 2021-04-13 Outpatient Pardo, STLMLC STLMLC [id number] Common 14:26:16 [place] [id number] [facility] 2021-04-13 Outpatient Pardo, STLMLC STLMLC [id number] Common 13:52:35 [place] [address] [facility] 2021-04-13 Outpatient Pardo, STLMLC STLMLC [id number] Common 13:20:29 [place] [id number] [facility] 2021-04-13 Outpatient Pardo, STLMLC STLMLC [id number] Common 13:14:49 [place] [address] [facility] 2021-04-13 Outpatient Pardo, STLMLC STLMLC [id number] Common 13:14:00 [place] [address] [facility] 2021-04-13 Outpatient Pardo, STLMLC STLMLC [id number] Common 13:06:22 [place] [address] [facility] 2021-04-13 Outpatient Pardo, STLMLC STLMLC [id number] Common 12:42:00 [place] [address] [facility] 2021-04-13 Outpatient Pardo, STLMLC STLMLC [id number] Common 12:41:40 [place] [address] [facility] 2021-04-13 Outpatient Pardo, STLMLC STLMLC [id number] Common 12:31:36 [place] [address] [facility] 2021-07-11 2021-07-11 ambulatory STLMLC STLMLC [id number] Common 00:00:00 00:00:00 [facility] 2021-07-07 2021-07-07 ambulatory STLMLC STLMLC [id number] Common 00:00:00 00:00:00 [facility] 2021-07-07 2021-07-07 ambulatory STLMLC STLMLC [id number] Common 00:00:00 00:00:00 [facility] 2021-07-07 2021-07-07 ambulatory STLMLC STLMLC [id number] Common 00:00:00 00:00:00 [facility] 2021-07-06 2021-07-06 ambulatory STLMLC STLMLC [id number] Common 00:00:00 00:00:00 [facility] 2021-06-27 2021-06-27 ambulatory STLMLC STLMLC [id number] Common 00:00:00 00:00:00 [facility] 2021-06-10 2021-06-10 ambulatory STLMLC STLMLC [id number] Common 00:00:00 00:00:00 [facility] 2021-05-25 2021-06-09 Inpatient 3 Khalik, [place] [id number] ENCPL 20:32:00 12:25:00 Taz 0309 2021-06-09 2021-06-09 ambulatory STLMLC STLMLC [id number] Common 00:00:00 00:00:00 [facility] 2021-06-08 2021-06-08 ambulatory STLMLC STLMLC [id number] Common 00:00:00 00:00:00 [facility] 2021-06-02 2021-06-02 ambulatory STLMLC STLMLC [id number] Common 00:00:00 00:00:00 [facility] 2021-05-27 2021-05-27 ambulatory STLMLC STLMLC [id number] Common 00:00:00 00:00:00 [facility] 2021-05-23 2021-05-23 ambulatory STLMLC STLMLC [id number] Common 00:00:00 00:00:00 [facility] 2021-04-28 2021-04-28 ambulatory STLMLC STLMLC [id number] Common 00:00:00 00:00:00 [facility] 2021-04-27 2021-04-27 ambulatory STLMLC STLMLC [id number] Common 00:00:00 00:00:00 [facility] 2021-04-22 2021-04-22 ambulatory STLMLC STLMLC [id number] Common 00:00:00 00:00:00 [facility] 2021-04-08 2021-04-08 ambulatory STLMLC STLMLC [id number] Common 00:00:00 00:00:00 [facility] 2021-03-04 2021-03-04 ambulatory STLMLC STLMLC [id number] Common 00:00:00 00:00:00 [facility] 2020-12-28 2020-12-28 Outpatient STLMLC STLMLC [id number] Common 00:00:00 00:00:00 [facility] 2020-12-15 2020-12-15 Outpatient STLMLC STLMLC [id number] Common 00:00:00 00:00:00 [facility] 2020-12-10 2020-12-10 Outpatient STLMLC STLMLC [id number] Common 00:00:00 00:00:00 [facility] 2020-11-16 2020-11-16 Nurse Therapy, Rajinder Cordero [facility] 1.2. [id number] Univers 17:20:37 18:20:37 [id number] [facility] [id number] Edgardo as Junito?Blea [phone] [address] Medical Office Building 2020-11-16 2020-11-16 Outpatient [facility] [id number] Univers 17:30:00 17:30:00 [id number] [facility] 2020-11-16 2020-11-16 [facility] [id number] Univers 17:30:00 17:30:00 [facility] 2020-11-15 2020-11-15 Outpatient STLMLC STLMLC [id number] Common 00:00:00 00:00:00 [facility] 2020-11-12 2020-11-12 Telephone ELICIA Lopez [id number] Univers 00:00:00 00:00:00 Raegan ROSADOY [id number] it y of [facility] [id number] Edg[place] as [phone] [address] 2020-11-11 2020-11-11 Outpatient R [facility] [id number] Univers 17:00:00 17:00:00 [id number] ity [facility] 2020-11-11 2020-11-11 Outpatient R DIDIER [facility] [id number] Univers 17:00:00 17:00:00 MELITON ity [facility] 2020-11-11 2020-11-11 Laboratory Only, Ang Db Test [facility] 1.2.8 [id number] [id number] Univers 16:46:25 16:56:25 Only Didier [facility] [id number] ity of [place] [id number] Edgardo as Junito?Blea [phone] [address] Medical Office Building 2020-11-11 2020-11-11 Orders Doctor ELICIA [id number] Univers 00:00:00 00:00:00 Only Unassigned, MELECIO [id number] ity of [place] [facility] [id number] Edgardo as [phone] [facility] 009 [place] 2020-09-15 2020-09-15 Outpatient STLMLC STLMLC [id number] Common 00:00:00 00:00:00 [facility] 2020-09-08 2020-09-08 Outpatient STLMLC STLMLC [id number] Common 00:00:00 00:00:00 [facility] 2020-09-01 2020-09-01 Outpatient STLMLC STLMLC [id number] Common 00:00:00 00:00:00 [facility] 2020-08-30 2020-08-30 Outpatient STLMLC STLMLC [id number] Common 00:00:00 00:00:00 [facility] 2020-08-27 2020-08-27 Outpatient STLMLC STLMLC [id number] Common 00:00:00 00:00:00 [facility] 2020-08-06 2020-08-06 Outpatient STLMLC STLMLC [id number] Common 00:00:00 00:00:00 [facility] 2020-08-06 2020-08-06 Outpatient STLMLC STLMLC [id number] Common 00:00:00 00:00:00 [facility] 2020-06-23 2020-06-23 Outpatient STLMLC STLMLC [id number] Common 00:00:00 00:00:00 [facility] 2020-06-04 2020-06-04 Outpatient STLMLC STLMLC [id number] Common 00:00:00 00:00:00 [facility] 2020-06-04 2020-06-04 Outpatient STLMLC STLMLC [id number] Common 00:00:00 00:00:00 [facility] 2019-02-03 2019-02-03 AppointLEEANNA Agudelo UTP UTP [id number] [place] 11:30:00 11:30:00 t; MERCADO, Physic i BIDFAIZA ans 2018-12-13 2018-12-13 Outpatient [facility] [id number] [facility] 14:16:00 14:16:00 2018-06-28 2018-06-28 Appointnick LEEANNA MERCADO UTP UTP [id number] [place] 10:00:00 10:00:00 t; MERCADO, Physic i BIDHAN ans 2017-12-28 2017-12-28 Appointmen LEEANNA MERCADO UTP UTP [id number] [place] 10:30:00 10:30:00 t; MERCADO, Physic i BIDHAN ans 2017-09-28 2017-09-28 AppointLEEANNA Agudelo UTP UTP [id number] [place] 10:30:00 10:30:00 t; MERCADO, Physic i BIDHAN ans 2017-09-14 2017-09-14 Appointnick LEEANNA MERCADO UTP UTP [id number] [place] 08:00:00 08:00:00 t; MERCADO, Physic i BIDFAIZA ans 2017-08-31 2017-08-31 CRISTINA WilliamFAIZA [facility] UTP [id number] [place] 11:00:00 11:00:00 t; Breonna MERCADO i LEEANNA daniele Results Test Description Test Time Test Comments Results Result [facility] e Comments SURG 2019-01-10 15:30:00 ----RUN DATE: 01/10/19 [facility] PAGE 1 RUN TIME: 1530 Specimen Inquiry RUN USER: INTERFACE ----PATIENT: MATIAS CODY LOC: MAGDALENO U #: [id number] AGE/SX: 68/M ROOM: RE01/07/19[facility] DR: Macho Galeano MD : 52 BED: DIS: [place]US[place] [facility] [place]: ---- SPEC #: PMC:[id number] RECD: 01/07/19 STATUS: ROBERT ARTEAGA #: [id number] TRINA: 01/07/19 [facility] DR: Macho Galeano MD ENTERED: 01/07/19 SP TYPE: SURG OTHR DR: Hayley Eric MD ORDERED: SURG PATH LVL 06/18 COPIES TO: Hayley Eric MD [address] [place] [address] Macho Galeano MD [address] [address] HISTOLOGY: TISSUE ID BLK PCS CHAVO LEV PROCEDURE DISPOSITION ____ ___ ___ ___ DUODENUM, NOS A 1 2 STOMACH, NOS B 1 2 PROCEDURES: SURG PATH LVL 4 (01/07/19) TISSUES: A. DUODENUM, NOS - DUODENUM BIOPSY B. STOMACH, NOS - STOMACH BIOPSY CLINICAL HISTORY LAM'S -530.85; DIVERTICULOSIS -K57.30 CPT CODES CPT CODE(S): 11414L4 , 37834 , 93556 , , , , FINAL DIAGNOSIS A. Small intestine, duodenum, biopsy: DUODENUM WITH UNREMARKABLE VILLI B. Stomach, biopsy: MILD CHRONIC GASTRITIS NEGATIVE FOR INTESTINAL METAPLASIA, DYSPLASIA, OR MALIGNANCY NEGATIVE FOR HELICOBACTER PYLORI ORGANISMS CONTINUED ON NEXT PAGE ----RUN DATE: 01/10/19 [facility] PAGE 2 RUN TIME: 1530 Specimen Inquiry RUN USER: INTERFACE ----SPEC #: [facility]:[id number] PATIENT: MATIAS CODY #[id number] (Continued) GROSS DESCRIPTION A. Duodenal biopsy. Received in formalin are three coburn tissue fragments, 0.1 - 0.3 cm, all as A. B. Stomach biopsy. Received in formalin are seven coburn tissue fragments, 0.1 - 0.5 cm, all as B. wil/nr Grossing performed at [facility] Pathology, [address] [place] [address], [address], [place] [address]. Pipeline Engineer: Chandan Escobedo M.D. MICROSCOPIC DESCRIPTION A. Duodenal [...] Signed SIGNATURE ON FILE Maninder Aggarwal 01/10/19 0910 ---- END OF REPORT GLUCOSE BEDSIDE TESTING 2019-01-07 07:29:00 Test Item Value Reference Range Interpretation Comme nts GLUCOSE BEDSIDE TESTING (test code = GLUBED) 80 mg/dL 70-110 N BASIC METABOLIC [id number] 16:45:00 Test Item Value Reference Range Interpretation [...] CA) 8.7 MG/DL 8.5-10.1 N CBC W/AUTO [id number] 16:35:00 Test Item Value Reference Range Interpretation [...]
[2021-07-29] MEDS ORDERED: METOCLOPRAMIDE 10 MG/2mL INJ ONE (16:06)
[2021-07-29] MEDS ORDERED: DIPHENHYDRAMINE 50 MG/ML VIAL ONE (16:06)
[2021-07-29] MEDS ORDERED: KETOROLAC 30 MG/ML INJ ONE (16:07)
--- NOTE | 2021-07-29 16:37 | RAD REPORT ---
EXAM DESCRIPTION: CT - Head Brain Wo Cont - 07/29/2021 4:31 pm CLINICAL HISTORY: Headache, new or worsening COMPARISON: CT-STROKE BRAIN W/O CONTRAST dated 12/21/2014; HEAD BRAIN W O CONTRAST dated 07/26/2012 TECHNIQUE: All CT scans are performed using dose optimization technique as appropriate and may inclu de automated exposure control or mA/KV adjustment according to patient size. FINDINGS: No intracranial hemorrhage, hydrocephalus or extra-axial fluid collection.No areas of brai n edema or evidence of midline shift. The paranasal sinuses and mastoids are clear. The calvarium is intact. IMPRESSION: No acute intracranial abnormality.
--- NOTE | 2021-07-29 17:44 | EDPHYS ---
Physician Documentation [facility] Name: Gildardo Callejas Age: 71 yrs Sex: Male : 1950 Arrival Date: 07/29/2021 Time: 15:26 Bed 6 Private MD: [facility] ED Physician Gilles Masterson HPI: 07/29 16:01 This 71 yrs old Male presents to ER via Ambulatory with complaints of pm1 Headache, High Blood Pressure. 16:01 The patient complains of pain to the forehead. The patient describes the headache as pm1 aching, constant. Onset: The symptoms/episode began/occurred 2 month(s) ago, and became worse today. Associated signs and symptoms: Pertinent positives: dizziness, blurred vision, Pertinent negatives: fever, nausea, vomiting, weakness. Severity of symptoms: in the emergency department the pain is actually worse. Headache History: Denies prior headaches. The symptoms are alleviated by nothing. the symptoms are aggravated by nothing. The patient has been recently seen by a physician: the patient's primary care provider, earlier today, with similar presenting complaints, and was sent to the [facility] Emergency Department for further evaluation. 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 - Social history:: Smoking status: Patient denies any tobacco usage or history of. ROS: 16:01 Constitutional: Negative for fever, chills, and weight loss, Cardiovascular: Negative pm1 for chest pain, palpitations, and edema, Respiratory: Negative for shortness of breath, cough, wheezing, and pleuritic chest pain. 16:01 Abdomen/GI: Negative for abdominal pain, nausea, vomiting, diarrhea, and constipation, Back: Negative for injury and pain, MS/Extremity: Negative for injury and deformity, Skin: Negative for injury, rash, and discoloration. 16:01 Eyes: Positive for blurry vision. 16:01 Neuro: Positive for dizziness, headache, Negative for numbness, tingling, weakness. 16:01 All other systems are negative. pm1 Exam: 16:01 Constitutional: This is a well developed, well nourished patient who is awake, alert, pm1 and in no acute distress. Head/Face: Normocephalic, atraumatic. 16:01 Back: No spinal tenderness. No costovertebral tenderness. Full range of motion. Skin: Warm, dry with normal turgor. Normal color with no rashes, no lesions, and no evidence of cellulitis. 16:01 MS/ Extremity: Pulses equal, no cyanosis. Neurovascular intact. Full, normal range of motion. 16:01 Eyes: Exam is negative for acute changes, Periorbital structures: no acute changes, Pupils: no acute changes, Extraocular movements: no acute changes, Conjunctiva: no acute changes, no injection. 16:01 Cardiovascular: Exam negative for acute changes, Rate: normal, Rhythm: regular, Pulses: no pulse deficits are appreciated. 16:01 Respiratory: Exam negative for acute changes, respiratory distress, shortness of breath, Breath sounds: are clear throughout. 16:01 Abdomen/GI: Exam negative for acute changes, Inspection: abdomen appears normal, Palpation: abdomen is soft and non-tender, in all quadrants. 16:01 Neuro: Exam negative for acute changes, Orientation: is normal, Mentation: is normal, Motor: is normal, moves all fours. Vital Signs: 15:34 BP 184 / 76; Pulse 63; Resp 18; Temp 98.8; Pulse Ox 100% ; Weight 63.5 kg; Height 5 ft. vg1 7 in. (170.18 cm); Pain 9/10; 16:16 BP 158 / 72; Pulse 55; Resp 17; Pulse Ox 95% ; ll1 15:34 Body Mass Index 21.93 (63.50 kg, 170.18 cm) vg1 MDM: 15:55 Patient medically screened. pm1 17:42 Data reviewed: vital signs. Data interpreted: Pulse oximetry: on room air is 95 %. pm1 Interpretation: normal. Counseling: I had a detailed discussion with the patient and/or guardian regarding: radiology results. 07/29 15:57 Order name: CT Head Brain wo Cont; Complete Time: 16:47 pm1 07/29 15:47 Order name: EKG; Complete Time: 15:47 ll1 07/29 15:47 Order name: EKG - Nurse/Tech; Complete Time: 15:47 ll1 07/29 16:15 Order name: IV Start; Complete Time: 16:15 ll1 Administered Medications: 16:14 Drug: Benadryl (diphenhydrAMINE) 12.5 mg Route: IVP; Site: left forearm; ll1 17:11 Follow up: Response: No adverse reaction ll1 16:14 Drug: Ketorolac 15 mg Route: IVP; Site: left forearm; ll1 17:11 Follow up: Response: No adverse reaction; Pain is decreased ll1 16:14 Drug: Reglan (metoCLOPramide) 10 mg Route: IVP; Site: left forearm; ll1 17:11 Follow up: Response: No adverse reaction ll1 Disposition Summary: 07/29/21 17:43 Discharge Ordered Location: Home pm1 Problem: new pm1 Symptoms: have improved pm1 Condition: Stable pm1 Diagnosis - Headache pm1 - Essential (primary) hypertension pm1 Followup: pm1 - With: Torito Pardo, DO - When: 2 - 3 days - Reason: Recheck today's complaints, Continuance of care, Re-evaluation by your physician Discharge Instructions: - Discharge Summary Sheet pm1 - General Headache Without Cause pm1 - Hypertension, Adult pm1 - How to Take Your Blood Pressure, [id number] pm1 - DASH Eating Plan pm1 - Managing Your Hypertension pm1 Forms: - Medication Reconciliation Form pm1 - Thank You Letter pm1 - Antibiotic Education pm1 - Prescription Opioid Use pm1 Signatures: Dispatcher [employer] Riamundo Duggan NP MANUFACTURING ENGINEERING INTERN pm1 Drew Zaldivar RN RN 1
--- NOTE | 2021-07-29 17:44 | ER ---
Nurse's Notes [facility] Name: Gildardo Callejas Age: 71 yrs Sex: Male : 1950 Arrival Date: 07/29/2021 Time: 15:26 Bed 6 Private MD: Torito Pardo Diagnosis: Headache;Essential (primary) hypertension Presentation: 07/29 15:34 Chief complaint: Patient states: fell about two months ago and since then has been vg1 having 'bad headaches' states feels like 'lightening bolts' and headache is 'pounding'; also states blurred vision and dizziness. 15:55 Coronavirus screen: Vaccine status: Patient reports receiving the 2nd dose of the covid ll1 vaccine. Client denies travel out of the [place] in the last 14 days. At this time, the client does not indicate any symptoms associated with coronavirus-19. Ebola Screen: Patient denies travel to an Ebola-affected area in the 21 days before illness onset. Initial Sepsis Screen: Does the patient meet any 2 criteria? No. Patient's initial sepsis screen is negative. Does the patient have a suspected source of infection? No. Patient's initial sepsis screen is negative. Risk Assessment: Do you want to hurt yourself or someone else? Patient reports no desire to harm self or others. Onset of symptoms was May 29, 2021. 15:55 Method Of Arrival: Ambulatory [facility] 15:55 Acuity: MORE 2 ll1 Triage Assessment: 15:41 Headache History: The patient has had previous headaches and this one is different than ll1 previous episodes, and this one is more severe than previous episodes. General: Appears uncomfortable, Behavior is cooperative, appropriate for age. Pain: Complains of pain in head Pain began 2 months ago. Pain: Pain currently is 9 out of 10 on a pain scale. Also complains of sleeplessness. Neuro: Reports headache. 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 - Social history:: Smoking status: Patient denies any tobacco usage or history of. Screenin:55 Abuse screen: Denies threats or abuse. Nutritional screening: No deficits noted. ll1 Tuberculosis screening: No symptoms or risk factors identified. Fall Risk Fall in past 12 months (25 points). IV access (20 points). Total Vargas Fall Scale indicates High Risk Score (45 or more points). Fall prevention measures have been instituted. Side Rails Up X 2 Placed Close to Nursing Station Frequent Obs/Assessments Occuring Family Present and informed to notify staff if the need to leave the bedside As available patient and family educated on Fall Prevention Program and Strategies. Assessment: 16:15 Reassessment: No changes from previously documented assessment. Patient and/or family ll1 updated on plan of care and expected duration. Pain level reassessed. Patient is alert, oriented x 3, equal unlabored respirations, skin warm/dry/pink. Pain: Complains of pain in head Pain currently is 10 out of 10 on a pain scale. Quality of pain is described as aching, sharp, Is intermittent. Neuro: Reports headache. 17:15 Reassessment: No changes from previously documented assessment. Patient and/or family ll1 updated on plan of care and expected duration. Pain level reassessed. Patient is alert, oriented x 3, equal unlabored respirations, skin warm/dry/pink. 18:15 Reassessment: No changes from previously documented assessment. Patient and/or family ll1 updated on plan of care and expected duration. Pain level reassessed. Patient is alert, oriented x 3, equal unlabored respirations, skin warm/dry/pink. Vital Signs: 15:34 BP 184 / 76; Pulse 63; Resp 18; Temp 98.8; Pulse Ox 100% ; Weight 63.5 kg; Height 5 ft. vg1 7 in. (170.18 cm); Pain 9/10; 16:16 BP 158 / 72; Pulse 55; Resp 17; Pulse Ox 95% ; ll1 15:34 Body Mass Index 21.93 (63.50 kg, 170.18 cm) vg1 ED Course: 15:26 Patient arrived in ED. am2 15:27 Torito Pardo DO is Private Physician. am2 15:40 Drew Zaldivar, REUBEN is Primary Nurse. ll1 15:40 Arm band placed on Patient placed in an exam room, on a stretcher. ll1 15:48 Raimundo Theodore [facility] pm1 15:48 Gilles Masterson MD is Attending Physician. pm1 15:55 Triage completed. ll1 15:56 Patient has correct armband on for positive identification. Bed in low position. Call ll1 light in reach. Side rails up X 1. Client placed on continuous cardiac and pulse oximetry monitoring. NIBP monitoring applied. 16:10 Inserted saline lock: 20 gauge in left forearm, using aseptic technique. Blood ll1 collected. 16:33 CT Head Brain wo Cont In Process Unspecified. EDMS 17:43 Torito Pardo DO is Referral Physician. pm1 18:20 No provider procedures requiring assistance completed. IV discontinued, intact, ll1 bleeding controlled, No redness/swelling at site. Pressure dressing applied. Administered Medications: 16:14 Drug: Benadryl (diphenhydrAMINE) 12.5 mg Route: IVP; Site: left forearm; ll1 17:11 Follow up: Response: No adverse reaction ll1 16:14 Drug: Ketorolac 15 mg Route: IVP; Site: left forearm; ll1 17:11 Follow up: Response: No adverse reaction; Pain is decreased ll1 16:14 Drug: Reglan (metoCLOPramide) 10 mg Route: IVP; Site: left forearm; ll1 17:11 Follow up: Response: No adverse reaction ll1 Medication: 18:49 VIS not applicable for this client. ll1 Outcome: 17:43 Discharge ordered by . pm1 18:20 Patient left the ED. ll1 18:20 Discharged to home ambulatory. ll1 18:20 Condition: stable 18:20 Discharge instructions given to patient, family, Instructed on discharge instructions, follow up and referral plans. Demonstrated understanding of instructions, follow-up care. Signatures: Dispatcher [employer] [facility] Raimundo Theodore NP ARCHITECTURAL MANAGER pm1 Frieda Moran am2 Jannette Valles, RN RN vg1 Drew Zaldivar RN RN ll1
[2021-07-29 18:38] VITALS: TEMP 98.8
[2021-07-29 18:39] VITALS: BP 158/72; O2SAT 95
--- NOTE | 2021-07-30 14:58 | EKG ---
Test Date: 2021-07-29 Test Time: 15:41:00 Glass Lathe Operator: RANDALL MEASUREMENT RESULTS: Intervals: Rate: 61 OR: 166 QRSD: 100 QT: 426 QTc: 428 [place]: P: 69 OR: 166 QRS: 251 T: 85 INTERPRETIVE STATEMENTS: Normal sinus rhythm Right superior axis deviation Abnormal ECG Compared to ECG 05/20/2021 12:10:49 Sinus bradycardia no longer present Electronically Signed On 07-30-21 14:54:27 CDT by Harsha Daugherty
== END 2021-07-29 18:20 | disposition home or self-care (01) ==
LOC: ER 15:25
DX: R51.9 Headache, unspecified (principal); I10 Essential (primary) hypertension; E11.9 Type 2 diabetes mellitus without complications; F03.90 Unspecified dementia, unspecified severity, without behavioral disturbance, psychotic disturbance, mood disturbance, and anxiety; I25.2 Old myocardial infarction; Z88.2 Allergy status to sulfonamides
CPT/HCPCS: 93005; 70450; 96375; 96374; 99284; J2765; J1200

== ENCOUNTER 2024-10-31 10:42 | Observation (INO) | payer OTHER ==
--- OUTSIDE RECORDS SUMMARY | 2024-10-31 10:45 | XMS REPORT | Continuity of Care Document ---
Author Name Unknown Address [address] [facility] [place] [address] Organization [facility] [place] Address [address] [facility] [place] [address] Care Team Providers Care Control Systems Specialist Name Role Phone Edvin GRAY, [facility] Primary Care Physician + Nasim Ferreira MD Attending Clinician NASIM FERREIRA Attending Clinician Unavail able Payers Payer Name Policy Type Policy Number Effective Date Expirati on Date Source MEDICARE PART A AND B Medicare [id number] 2023 00:00:00 [employer] COMM [id number] 2017 00:00:00 Problems Condition Name Condition Details Condition Category Status Onset Date Resolution Date Last Treatment Date Treating Clinician Comments Source Chronic pain syndrome Chronic pain syndrome Disease Active 2023-03 00:00: 00 Juan Luis Wu long-term (current) use of opiate analgesic 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 Disease Active 2023-03 00:00: 00 Memgiselle Calderon Epic Lumbar radiculopa thy Lumbar radiculopa thy Disease Active 2023-03 00:00: 00 Memgiselle Calderon Epic Lumbar spondylosi s Lumbar spondylosi s Disease Active 2023-03 00:00: 00 Memgiselle Calderon Epic Gait abnormalit y Gait abnormalit y Disease Active 09-12 00:00: 00 Juan Luis Calderon Epic Hyperlipid emia Hyperlipid emia Disease Active 09-12 00:00: 00 Juan Luis Calderon Epic Hypertensi on Hypertensi on Disease Active 09-12 00:00: 00 Juan Luis Wu Major depressive disorder, single episode, unspecifie d Major depressive disorder, single episode, unspecifie d Disease Active 09-12 00:00: 00 Juan Luis Wu Memory loss Memory loss Disease Active 09-12 00:00: 00 Juan Luis Wu Neuropathy Neuropathy Disease Active 09-12 00:00: 00 Juan Luis Wu Spinal stenosis of cervical region Spinal stenosis of cervical region Disease Active 09-12 00:00: 00 Juan Luis Wu Coronary artery disease Coronary artery disease Disease Active 09-12 00:00: 00 Juan Luis Wu Depressive disorder Depressive disorder Disease Active 09-12 00:00: 00 Juan Luis Wu Sacral nerve stimulator present Sacral nerve stimulator present Disease Active 09-12 00:00: 00 Juan Luis Wu Tobacco abuse Tobacco abuse Disease Active 09-12 00:00: 00 Juan Luis Wu Dementia Dementia Disease Active 09-12 00:00: 00 Juan Luis Wu Diabetes mellitus Diabetes mellitus Disease Active 09-12 00:00: 00 Juan Luis Wu Left leg pain Left leg pain Disease Resolve d 09-12 00:00: 00 2023-09-13 00:00:00 2023-09-13 16:37:14 Juan Luis Wu Recurrent falls Recurrent falls Disease Resolve d 09-12 00:00: 00 2023-09-13 00:00:00 2023-09-13 16:37:14 Juan Luis Wu Hyperrefle qamar Hyperrefle qamar Disease Resolve d 09-12 00:00: 00 2023-09-13 00:00:00 2023-09-13 16:37:14 Juan Luis Wu Post-op pain Post-op pain Disease Resolve d 30 00:00: 00 2023-09-13 00:00:00 2023-09-13 15:49:30 Juan Luis Wu Allergies, Adverse Reactions, Alerts Allergy Name Allergy Type Status Severity Reaction(s) Onset Date Inactive Date Treating Clinician Comments Source SULFA ANTIBIOT ICS Drug Class Active Med Hives 04-17 00:00: 00 [facility]OUT Sulfa Antibiot ics Drug Allergy Active Hives, Unknown 04-17 00:00: 00 Juan Luis Calderon [facility] ALLERGIE S NOT ON FILE SYSTEMIC Active [facility]OUT Social History Social Habit Start Date Stop Date Quantity Comments Source Gender identity 2023-06-09 19:07:54 Identifies as male gender (finding) [facility] History of tobacco use Passive smoker [facility] Sexual orientation [facility] Alcoholic beverage intake 2024-08-06 00:00:00 2024-08-06 00:00:00 Current drinker of alcohol (finding) [facility] History of Social function 2024-08-06 00:00:00 2024-08-06 00:00:00 [facility] Smoking Status Start Date Stop Date Source Smokes tobacco daily 2023-09-13 00:00:00 [facility] Medications Ordered Medication Name Filled Medication Name Start Date Stop Date Current Medication? Ordering Clinician Indication Dosage Frequency Signature (SIG) Comments Components Source memantine (Namenda) 10 MG tablet memantine (Namenda) 10 MG tablet 03-25 00:00: 00 Yes 10mg Q.5D TAKE 1 TABLET BY MOUTH TWICE A DAY Juan Luis Calderon [facility] donepezil (Aricept) 10 MG tablet donepezil (Aricept) 10 MG tablet 2023-03 2-20 00:00: 00 09-03 23:59 :00 No 10mg Take 1 tablet by mouth 1 time each day at the same time. Juan Luis Calderon [facility] alendronate (Fosamax) 70 MG tablet alendronate (Fosamax) 70 MG tablet 09-12 16:37: 36 Yes 70mg Q1W Take 70 mg by mouth every 7 days. Juan Luis Calderon [facility] amLODIPine (Norvasc) 5 MG tablet amLODIPine (Norvasc) 5 MG tablet 09-12 16:37: 36 Yes 1{tbl} Take 1 tablet by mouth 1 time each day at the same time. Juan Luis Calderon [facility] aspirin EC 81 MG EC tablet aspirin EC 81 MG EC tablet 09-12 16:37: 36 Yes 1{tbl} Take 1 tablet by mouth 1 time each day at the same time. Juan Luis Calderon [facility] lisinopril 40 MG tablet lisinopril 40 MG tablet 09-12 16:37: 36 Yes TAKE ONE TABLET BY MOUTH DAILY for 90 Juan Luis Calderon [facility] metFORMIN XR (Glucophage -XR) 500 MG 24 hr tablet metFORMIN XR (Glucophage -XR) 500 MG 24 hr tablet 09-12 16:37: 36 Yes 1 time each day at the same time. Juan Luis Calderon [facility] metoprolol tartrate (Lopressor) 25 MG tablet metoprolol tartrate (Lopressor) 25 MG tablet 09-12 16:37: 36 Yes 25mg QD Take 25 mg by mouth 1 time each day. Juan Luis Calderon [facility] sertraline (Zoloft) 100 MG tablet sertraline (Zoloft) 100 MG tablet 09-12 16:37: 36 Yes 1{tbl} Take 1 tablet by mouth 1 time each day at the same time. Juan Luis Calderon [facility] sildenafil (Viagra) 50 MG tablet sildenafil (Viagra) 50 MG tablet 09-12 16:37: 36 Yes 50mg Take 50 mg by mouth if needed. Juan Luis Calderon [facility] memantine (Namenda) 5 MG tablet memantine (Namenda) 5 MG tablet 09-12 00:00: 00 08-06 00:00 :00 No 10mg Q12H Take 2 tablets by mouth in the morning and 2 tablets in the evening. Juan Luis Calderon [facility] donepezil (Aricept) 10 MG tablet donepezil (Aricept) 10 MG tablet 09-12 00:00: 00 03-07 00:00 :00 No 10mg Take 1 tablet by mouth 1 time each day at the same time. Juan Luis Calderon [facility] atorvastati n (Lipitor) 80 MG tablet atorvastati n (Lipitor) 80 MG tablet 07-19 00:00: 00 Yes 1{tbl} Take 1 tablet by mouth 1 time each day at the same time. Juan Luis Calderon [facility] gabapentin (Neurontin) 100 MG capsule gabapentin (Neurontin) 100 MG capsule 07-19 00:00: 00 Yes 200mg QD Take 200 mg by mouth 1 time each day. [facility] donepezil (Aricept) 10 MG tablet donepezil (Aricept) 10 MG tablet 07-19 00:00: 00 09-12 00:00 :00 No 10mg Take 10 mg by mouth 1 time each day at the same time. [facility] Immunizations Ordered Immunization Name Filled Immunization Name Date Status Comments Source Influenza, live, intranasal, quadrivalent Influenza, live, intranasal, quadrivalent 2023-01-20 00:00:00 Completed [facility] Vital Signs Vital Name Observation Time Observation Value Comments S isabellece Body temperature 2024-08-06 09:15:00 36.78 Naye [facility] Respiratory rate 2024-08-06 09:15:00 16 /min [facility] Body height 2024-08-06 09:15:00 162.6 cm [facility] Body weight 2024-08-06 09:15:00 78.563 kg [facility] BMI 2024-08-06 09:15:00 29.73 kg/m2 [facility] Oxygen saturation in Arterial blood by Pulse oximetry 2024-08-06 09:15:00 94 /min [facility] Systolic blood pressure 2024-08-06 09:15:00 141 mm[Hg] [facility] Diastolic blood pressure 2024-08-06 09:15:00 65 mm[Hg] [facility] Heart rate 2024-08-06 09:15:00 50 /min [facility] Body temperature 2024-08-06 09:15:00 36.78 Naye [facility] Respiratory rate 2024-08-06 09:15:00 16 /min [facility] Body height 2024-08-06 09:15:00 162.6 cm [facility] Body weight 2024-08-06 09:15:00 78.563 kg [facility] BMI 2024-08-06 09:15:00 29.73 kg/m2 [facility] Oxygen saturation in Arterial blood by Pulse oximetry 2024-08-06 09:15:00 94 /min [facility] Systolic blood pressure 2024-08-06 09:15:00 141 mm[Hg] [facility] Diastolic blood pressure 2024-08-06 09:15:00 65 mm[Hg] [facility] Epic Heart rate 2024-08-06 09:15:00 50 /min [facility] Systolic blood pressure 2024-03-07 16:51:00 170 mm[Hg] Luanne Milton [facility] Diastolic blood pressure 2024-03-07 16:51:00 68 mm[Hg] [facility] Epic Heart rate 2024-03-07 16:51:00 56 /min [facility] Body temperature 2024-03-07 16:51:00 [facility] Respiratory rate 2024-03-07 16:51:00 16 /min [facility] Body height 2024-03-07 16:51:00 162.6 cm Wyatt [facility] Body weight 2024-03-07 16:51:00 76.204 kg [facility] [place] [facility] BMI 2024-03-07 16:51:00 28.84 kg/m2 [facility] Oxygen saturation in Arterial blood by Pulse oximetry 2024-03-07 16:51:00 96 /min [facility] Her zelaya [facility] Systolic blood pressure 2024-03-07 16:51:00 170 mm[Hg] Luanne zelaya [facility] Diastolic blood pressure 2024-03-07 16:51:00 68 mm[Hg] [facility] Heart rate 2024-03-07 16:51:00 56 /min [facility] Body temperature 2024-03-07 16:51:00 [facility].28 [facility] Respiratory rate 2024-03-07 16:51:00 16 /min [facility] Epic Body height 2024-03-07 16:51:00 162.6 cm [facility] Body weight 2024-03-07 16:51:00 76.204 kg [facility] BMI 2024-03-07 16:51:00 28.84 kg/m2 [facility] [place] [facility] Oxygen saturation in Arterial blood by Pulse oximetry 2024-03-07 16:51:00 96 /min [facility] Systolic blood pressure 2023-09-13 16:39:00 138 mm[Hg] [facility] Diastolic blood pressure 2023-09-13 16:39:00 63 mm[Hg] [facility] Epic Heart rate 2023-09-13 16:39:00 50 /min [facility] Body temperature 2023-09-13 16:39:00 36.72 [facility] Respiratory rate 2023-09-13 16:39:00 16 /min [facility] 2023-09-13 16:39:00 157.5 cm [facility] 2023-09-13 16:39:00 78.019 kg Wyatt mandy [facility] Epic BMI 2023-09-13 16:39:00 31.46 kg/m2 [facility] Oxygen saturation in Arterial blood by Pulse oximetry 2023-09-13 16:39:00 94 /min [facility] Her zelaya [facility] Systolic blood pressure 2023-09-13 16:39:00 138 mm[Hg] [facility] Diastolic blood pressure 2023-09-13 16:39:00 63 mm[Hg] [facility] Epic Heart rate 2023-09-13 16:39:00 50 /min [facility] Body temperature 2023-09-13 16:39:00 36.72 [facility] Respiratory rate 2023-09-13 16:39:00 16 /min [facility] Body height 2023-09-13 16:39:00 157.5 cm Wyatt mandy [facility] Body weight 2023-09-13 16:39:00 78.019 kg Wyattzainab galvan [facility] Epic BMI 2023-09-13 16:39:00 31.46 kg/m2 [facility] Oxygen saturation in Arterial blood by Pulse oximetry 2023-09-13 16:39:00 94 /min [facility] Her zelaya [facility] Encounters Start Date/Time End Date/Time Encounter Type Admission Type Attending [facility] Care Department Encounter ID Source 2024-08-06 09:15:00 2024-08-06 09:35:40 Office Visit Nasim Ferreira [id number] [facility] 2024-08-06 09:12:11 2024-08-06 09:35:40 Outpatient JHON NASIM MHEOUT MHEOUT [id number] [facility]OUT 2024-03-25 00:00:00 2024-03-25 08:58:19 Refill Nasim Ferreira [id number] Juan Luis [facility] 2024-03-07 16:15:00 2024-03-07 17:14:32 Office Visit Nasim Ferreira [id number] [facility] 2024-03-07 15:46:35 2024-03-07 17:14:32 Outpatient Elective NASIM FERREIRA MHEOUT MHEOUT [id number] MHEOUT 2023-09-13 15:40:36 2023-09-13 17:16:04 Outpatient NASIM FERREIRA DaltonOUT [facility]OUT [id number] [facility]OUT 2023-09-13 16:15:00 2023-09-13 16:30:00 Office Visit Nasim Ferreira [id number] Juan Luis [facility] 2018-12-13 14:16:00 2018-12-13 14:16:00 Outpatient [facility] [id number] [facility] Notes Date/Time Note Provider Source 2024-08-06 09:37:33 [facility]2025-05-21 09:37:33* Nasim Ferreira MD - 08/06/2024 9:15 AM CDT History of Present Illness HPI The patient is a 74-year-old male presenting for follow-up. The patient reports no new problems since his last visit. He continues to experience leg pain described as "hurts all around." He does not endorse any changes in memory, stating he feels "as crazy as a boy, 71." He is currently taking Aricept and Namenda and does not report any issues with these medications. Allergies as of 08/06/2024 - Reviewed 08/06/2024 Allergen Reaction Noted Sulfa antibiotics Hives and Unknown 04/17/2018 has a current medication list which includes the following prescription(s): alendronate, amlodipine, aspirin ec, atorvastatin, donepezil, gabapentin, lisinopril, memantine, metformin xr, metoprolol tartrate, sertraline, and sildenafil. Musculoskeletal: (+) leg pain Vitals:08/06/24 0915 BP: 141/65 Pulse: 50 Resp: 16 Temp: 36.8 ?C (98.2 ?F) SpO2: 94% Neurological Exam Mental Status: Awake, alert, and oriented to person, place, and time. Speech is normal. Language is fluent with no aphasia. Cranial Nerves: CN III, IV, : Extraocular movements intact bilaterally. No nystagmus. CN II-XII are otherwise intact. Motor: Normal muscle bulk throughout. Normal muscle tone. No abnormal involuntary movements. There is no tremor at rest or with action. There is no bradykinesia. There is no apparent weakness or pronator drift. Coordination: Right: Cbcmcq-oj-alae normal. Rapid alternating movement is normal. Left: Hwckyx-ct-midh normal. Rapid alternating movement is normal. Gait: Casual gait is normal, including stance, stride, and arm swing. No results found for this or any previous visit. No MRI head results found for the past 12 months Your note content is not currently available. Please go to the Ambienceactivity and push your notes to view them here. Assessment & Plan# Moderate late onset Alzheimer's dementia without behavioral disturbance, psychotic disturbance, mood disturbance, or anxiety (HCC) (G30.1) - Memory status is stable. - Continue current medications: Donepezil and Memantine. I am the continuing focal point for needed health care services and medicalcare services that are part of ongoing care related to this patient's single, serious condition or complex condition. [id number] 09:37:33Upcoming Encounters Health Maintenance Due Date Last Done Comments CT Colonography 1951 Colonoscopy 1951 Colorectal Cancer Screening 1951 Diabetes: Hemoglobin A1C 1951 FIT-DNA 1951 FIT 1951 FOBT 1951 Lipid Panel 1951 Medicare Annual Wellness (AWV) 1951 Sigmoidoscopy 1951 Diabetes: Foot Exam 1961 Diabetes: Retinopathy Screening 1961 DTaP/Tdap/Td Vaccines (1 - Tdap) 1970 Diabetes: Urine Protein Screening 1970 Pneumococcal Vaccine: 50+ Ye ars (1 of 2 - PCV) 1970 Zoster Vaccines (1 of 2) 2001 Respiratory Syncytial Virus (RSV) Adult Series (1 - Risk 60-74 years 1-dose series) 2011 Abdominal Aortic Aneurysm (A AA) Screening 2016 Influenza Vaccine (Season Ended) 2024 01/21/20 23 HIB Vaccines Aged Out No longer eligi ble based on patient's age to complete this topic HPV Vaccines Aged Out No longer eligi ble based on patient's age to complete this topic Hepatitis A Vaccines Aged Out No long er eligible based on patient's age to complete this topic Hepatitis B Vaccines Aged Out No long er eligible based on patient's age to complete this topic IPV Vaccines Aged Out No longer eligi ble based on patient's age to complete this topic Meningococcal Vaccine Aged Out No nora cherry eligible based on patient's age to complete this topic Rotavirus Vaccines Aged Out No longer eligible based on patient's age to complete this topic [facility]vryypw4679-24-27 09:37:33 Diagnosis Moderate late onset Alzheime r's dementia without behavioral disturbance, psychotic disturbance, mood disturbance, or anxiety (HCC) - [facility]Dzewkfq0151-94-77 09:37:33 [facility] CampusDoevvuu2938-31-15 09:37:32* [facility]wayVnspfxz0852-00-97 09:37:32 [facility] LakewayWmcjkhb8763-02-27 09:37:32* Nasim Ferreira MD - 08/06/2024 9:15 AM CDT History of Present Illness HPI The patient is a 74-year-old male presenting for follow-up. The patient reports no new problems since his last visit. He continues to experience leg pain described as "hurts all around." He does not endorse any changes in memory, stating he feels "as crazy as a boy, 71." He is currently taking Aricept and Namenda and does not report any issues with these medications. Allergies as of 08/06/2024 - Reviewed 08/06/2024 Allergen Reaction Noted Sulfa antibiotics Hives and Unknown 04/17/2018 has a current medication list which includes the following prescription(s): alendronate, amlodipine, aspirin ec, atorvastatin, donepezil, gabapentin, lisinopril, memantine, metformin xr, metoprolol tartrate, sertraline, and sildenafil. Musculoskeletal: (+) leg pain Vitals:08/06/24 0915 BP: 141/65 Pulse: 50 Resp: 16 Temp: 36.8 ?C (98.2 ?F) SpO2: 94% Neurological Exam Mental Status: Awake, alert, and oriented to person, place, and time. Speech is normal. Language is fluent with no aphasia. Cranial Nerves: CN III, IV, : Extraocular movements intact bilaterally. No nystagmus. CN II-XII are otherwise intact. Motor: Normal muscle bulk throughout. Normal muscle tone. No abnormal involuntary movements. There is no tremor at rest or with action. There is no bradykinesia. There is no apparent weakness or pronator drift. Coordination: Right: Gnepkq-xy-jgvo normal. Rapid alternating movement is normal. Left: Gbgcrl-pr-hauh normal. Rapid alternating movement is normal. Gait: Casual gait is normal, including stance, stride, and arm swing. No results found for this or any previous visit. No MRI head results found for the past 12 months Your note content is not currently available. Please go to the Ambienceactivity and push your notes to view them here. Assessment & Plan# Moderate late onset Alzheimer's dementia without behavioral disturbance, psychotic disturbance, mood disturbance, or anxiety (HCC) (G30.1) - Memory status is stable. - Continue current medications: Donepezil and Memantine. I am the continuing focal point for needed health care services and medicalcare services that are part of ongoing care related to this patient's single, serious condition or complex condition. [facility] LakewayUtdtwru1535-73-78 09:37:32Upcoming Encounters Health Maintenance Due Date Last Done Comments CT Colonography 1951 Colonoscopy 1951 Colorectal Cancer Screening 1951 Diabetes: Hemoglobin A1C 1951 FIT-DNA 1951 FIT 1951 FOBT 1951 Lipid Panel 1951 Medicare Annual Wellness (AWV) 1951 Sigmoidoscopy 1951 Diabetes: Foot Exam 1961 Diabetes: Retinopathy Screening 1961 DTaP/Tdap/Td Vaccines (1 - Tdap) 1970 Diabetes: Urine Protein Screening 1970 Pneumococcal Vaccine: 50+ Ye ars (1 of 2 - PCV) 1970 Zoster Vaccines (1 of 2) 2001 Respiratory Syncytial Virus (RSV) Adult Series (1 - Risk 60-74 years 1-dose series) 2011 Abdominal Aortic Aneurysm (A AA) Screening 2016 Influenza Vaccine (Season Ended) 2024 01/21/20 23 HIB Vaccines Aged Out No longer eligi ble based on patient's age to complete this topic HPV Vaccines Aged Out No longer eligi ble based on patient's age to complete this topic Hepatitis A Vaccines Aged Out No long er eligible based on patient's age to complete this topic Hepatitis B Vaccines Aged Out No long er eligible based on patient's age to complete this topic IPV Vaccines Aged Out No longer eligi ble based on patient's age to complete this topic Meningococcal Vaccine Aged Out No nora cherry eligible based on patient's age to complete this topic Rotavirus Vaccines Aged Out No longer eligible based on patient's age to complete this topic [id number] 09:37:32 Diagnosis Moderate late onset Alzheime r's dementia without behavioral disturbance, psychotic disturbance, mood disturbance, or anxiety (HCC) - [facility]Fimhdmu6655-08-06 09:37:32 [facility] CampusMfzyeuy6457-97-08 08:58:29* [facility] Aynjgee3532-13-47 08:58:29 [facility] LakewayBbgxteh6652-21-22 08:58:29Upcoming Encounters Health Maintenance Due Date Last Done Comments CT Colonography 1951 Colonoscopy 1951 Colorectal Cancer Screening 1951 Diabetes: Hemoglobin A1C 1951 FIT-DNA 1951 FIT 1951 FOBT 1951 Lipid Panel 1951 Medicare Annual Wellness (AWV) 1951 Sigmoidoscopy 1951 Annual Physical 1954 Pneumococcal Vaccine: 65+ Ye ars (1 of 2 - PCV) 1957 Diabetes: Foot Exam 1961 Diabetes: Retinopathy Screening 1961 DTaP/Tdap/Td Vaccines (1 - Tdap) 1970 Diabetes: Urine Protein Screening 1970 Zoster Vaccines (1 of 2) 2001 Respiratory Syncytial Virus (RSV) or >=60 (1 - Risk 60-74 years 1-dose series) 2011 Abdominal Aortic Aneurysm (A AA) Screening 2016 Influenza Vaccine (#1) 2023 01/20/2023 HIB Vaccines Aged Out No longer eligi ble based on patient's age to complete this topic HPV Vaccines Aged Out No longer eligi ble based on patient's age to complete this topic Hepatitis A Vaccines Aged Out No long er eligible based on patient's age to complete this topic Hepatitis B Vaccines Aged Out No long er eligible based on patient's age to complete this topic IPV Vaccines Aged Out No longer eligi ble based on patient's age to complete this topic Meningococcal Vaccine Aged Out No nora cherry eligible based on patient's age to complete this topic Rotavirus Vaccines Aged Out No longer eligible based on patient's age to complete this topic [facility] [id number] 08:58:29 [facility] LakewayTopgzvh1478-23-01 17:46:13* [facility] LakewayNkvaiyd1561-62-07 17:46:13 [facility] LakewayMxwadcr0780-89-01 17:46:13* Nasim Ferreira MD - 03/07/2024 4:15 PM [employer] History of Present Illness Memory Loss Stable, here with . No side effects on the Aricept. Weight stable. No significant behavioral problems. No new complaints referable to his nervous system. Allergies as of 03/07/2024 - Reviewed 03/07/2024 Allergen Reaction Noted Sulfa antibiotics Hives and Unknown 04/17/2018 has a current medication list which includes the following prescription(s): alendronate, amlodipine, aspirin ec, atorvastatin, donepezil, gabapentin, lisinopril, memantine, metformin xr, metoprolol tartrate, sertraline, and sildenafil. Vitals:03/07/24 1651 BP: (!) 170/68 Pulse: 56 Resp: 16 Temp: 36.3 ?C (97.3 ?F) SpO2: 96% Neurological Exam Mental Status Awake and alert. Speech is normal. 5/6 pictures. Cranial NervesCN II: Visual acuity is normal. CN III, IV, : Extraocular movements intact bilaterally. Pupils equal round and reactive to light bilaterally. CN VII: Full and symmetric facial movement. CN XII: Tongue midline without atrophy or fasciculations. MotorStrength is 5/5 throughout all four extremities. SensoryLight touch is normal in upper and lower extremities. Temperature is normal in upper and lower extremities. Vibration is normal in upper and lower extremities. ReflexesDeep tendon reflexes: Symmetric. GaitCasual gait is normal including stance, stride, and arm swing. No results found for this or any previous visit. No MRI head results found for the past 12 months Assessment & PlanDiagnoses and all orders for this visit: Moderate late onset Alzheimer's dementia without behavioral disturbance, psychotic disturbance, mood disturbance, or anxiety (HCC) Stable, continue present medications. [facility]2024-12-20 17:46:13Upcoming Encounters Health Maintenance Due Date Last Done Comments CT Colonography 1950 Colonoscopy 1950 Colorectal Cancer Screening 1950 Diabetes: Hemoglobin A1C 1950 FIT-DNA 1950 FIT 1950 FOBT 1950 Lipid Panel 1950 Medicare Annual Wellness (AWV) 1950 Sigmoidoscopy 1950 Annual Physical 1954 Pneumococcal Vaccine: 65+ Ye ars (1 of 2 - PCV) 1957 Diabetes: Foot Exam 1961 Diabetes: Retinopathy Screening 1961 DTaP/Tdap/Td Vaccines (1 - Tdap) 1970 Diabetes: Urine Protein Screening 1970 Zoster Vaccines (1 of 2) 2001 Respiratory Syncytial Virus (RSV) or >=60 (1 - Risk 60-74 years 1-dose series) 2011 Abdominal Aortic Aneurysm (A AA) Screening 2016 Influenza Vaccine (#1) 2023 01/20/2023 HIB Vaccines Aged Out No longer eligi ble based on patient's age to complete this topic HPV Vaccines Aged Out No longer eligi ble based on patient's age to complete this topic Hepatitis A Vaccines Aged Out No long er eligible based on patient's age to complete this topic Hepatitis B Vaccines Aged Out No long er eligible based on patient's age to complete this topic IPV Vaccines Aged Out No longer eligi ble based on patient's age to complete this topic Meningococcal Vaccine Aged Out No nora cherry eligible based on patient's age to complete this topic Rotavirus Vaccines Aged Out No longer eligible based on patient's age to complete this topic [id number] 17:46:13 Diagnosis Moderate late onset Alzheime r's dementia without behavioral disturbance, psychotic disturbance, mood disturbance, or anxiety (HCC) [facility] [id number] 17:46:13 [facility] [id number] 17:46:13* [facility] [id number] 17:46:13 [facility] [id number] 17:46:13* Nasim Ferreira MD - 03/07/2024 4:15 PM [employer] History of Present Illness Memory Loss Stable, here with . No side effects on the Aricept. Weight stable. No significant behavioral problems. No new complaints referable to his nervous system. Allergies as of 03/07/2024 - Reviewed 03/07/2024 Allergen Reaction Noted Sulfa antibiotics Hives and Unknown 04/17/2018 has a current medication list which includes the following prescription(s): alendronate, amlodipine, aspirin ec, atorvastatin, donepezil, gabapentin, lisinopril, memantine, metformin xr, metoprolol tartrate, sertraline, and sildenafil. Vitals:03/07/24 1651 BP: (!) 170/68 Pulse: 56 Resp: 16 Temp: 36.3 ?C (97.3 ?F) SpO2: 96% Neurological Exam Mental Status Awake and alert. Speech is normal. 5/6 pictures. Cranial NervesCN II: Visual acuity is normal. CN III, IV, : Extraocular movements intact bilaterally. Pupils equal round and reactive to light bilaterally. CN VII: Full and symmetric facial movement. CN XII: Tongue midline without atrophy or fasciculations. MotorStrength is 5/5 throughout all four extremities. SensoryLight touch is normal in upper and lower extremities. Temperature is normal in upper and lower extremities. Vibration is normal in upper and lower extremities. ReflexesDeep tendon reflexes: Symmetric. GaitCasual gait is normal including stance, stride, and arm swing. No results found for this or any previous visit. No MRI head results found for the past 12 months Assessment & PlanDiagnoses and all orders for this visit: Moderate late onset Alzheimer's dementia without behavioral disturbance, psychotic disturbance, mood disturbance, or anxiety (HCC) Stable, continue present medications. [facility]2024-12-20 17:46:13Upcoming Encounters Health Maintenance Due Date Last Done Comments CT Colonography 1950 Colonoscopy 1951 Colorectal Cancer Screening 1951 Diabetes: Hemoglobin A1C 1951 FIT-DNA 1951 FIT 1951 FOBT 1950 Lipid Panel 1950 Medicare Annual Wellness (AWV) 1950 Sigmoidoscopy 1951 Annual Physical 1954 Pneumococcal Vaccine: 65+ Ye ars (1 of 2 - PCV) 1957 Diabetes: Foot Exam 1961 Diabetes: Retinopathy Screening 1961 DTaP/Tdap/Td Vaccines (1 - Tdap) 1970 Diabetes: Urine Protein Screening 1970 Zoster Vaccines (1 of 2) 2001 Respiratory Syncytial Virus (RSV) or >=60 (1 - Risk 60-74 years 1-dose series) 2011 Abdominal Aortic Aneurysm (A AA) Screening 2016 Influenza Vaccine (#1) 2023 01/20/2023 HIB Vaccines Aged Out No longer eligi ble based on patient's age to complete this topic HPV Vaccines Aged Out No longer eligi ble based on patient's age to complete this topic Hepatitis A Vaccines Aged Out No long er eligible based on patient's age to complete this topic Hepatitis B Vaccines Aged Out No long er eligible based on patient's age to complete this topic IPV Vaccines Aged Out No longer eligi ble based on patient's age to complete this topic Meningococcal Vaccine Aged Out No nora cherry eligible based on patient's age to complete this topic Rotavirus Vaccines Aged Out No longer eligible based on patient's age to complete this topic [place] [id number] 17:46:13 Diagnosis Moderate late onset Alzheime r's dementia without behavioral disturbance, psychotic disturbance, mood disturbance, or anxiety (HCC) [facility] [id number] 17:46:13 [place] [id number] 17:11:37* [facility] [id number] 17:11:37 [facility] [id number] 17:11:37* Nasim Ferreira MD - 09/13/2023 4:15 PM CDT Memory Loss Patient reports onset of memory loss was more than 1 year ago. Onset quality is gradual. Symptoms associated with memory loss include changes in short-term memory. The family prepares medications. Moderate but stable Allergies as of 09/13/2023 - Reviewed 09/13/2023 Allergen Reaction Noted Sulfa antibiotics Hives and Unknown 04/17/2018 has a current medication list which includes the following prescription(s): alendronate, amlodipine, aspirin ec, atorvastatin, donepezil, gabapentin, lisinopril, memantine, metformin xr, metoprolol tartrate, sertraline, and sildenafil. Vitals:09/13/23 1639 BP: 138/63 Pulse: 50 Resp: 16 Temp: 36.7 ?C (98.1 ?F) SpO2: 94% Neurological Exam Mental Status Awake and alert. Speech is normal. Not oriented to year, month Oriented to day. Cranial NervesCN II: Visual acuity is normal. CN III, IV, : Extraocular movements intact bilaterally. Pupils equal round and reactive to light bilaterally. CN VII: Full and symmetric facial movement. CN XII: Tongue midline without atrophy or fasciculations. MotorStrength is 5/5 throughout all four extremities. SensoryLight touch is normal in upper and lower extremities. Temperature is normal in upper and lower extremities. Vibration is normal in upper and lower extremities. ReflexesDeep tendon reflexes: Symmetric. GaitCasual gait is normal including stance, stride, and arm swing. No results found for this or any previous visit. No MRI head results found for the past 12 months Assessment & PlanModerate late onset Alzheimer's dementia without behavioral disturbance, psychotic disturbance, mood disturbance, or anxiety (HCC) Orders:donepezil (Aricept) 10 MG tablet; Take 1 tablet by mouth 1 time each day at the same time. memantine (Namenda) 5 MG tablet; Take 2 tablets by mouth in the morning and 2 tablets in the evening. Stable, continue present medications. [facility] [id number] 17:11:37 [facility] [id number] 17:11:37 Diagnosis Moderate late onset Alzheime r's dementia without behavioral disturbance, psychotic disturbance, mood disturbance, or anxiety (HCC) - Primary [facility] [id number] 17:11:37 [facility]
[2024-10-31] MEDS ORDERED: NA CHLORIDE 0.9% 1,000 ML ONE (11:34)
[2024-10-31] MEDS ORDERED: FAMOTIDINE 20 MG/2 ML VIAL IV ONE (11:34)
[2024-10-31] MEDS ORDERED: ASPIRIN 81 MG CHEWABLE TABLET ONE (11:34)
[2024-10-31 11:53] LABS: Absolute Lymphocytes (CBC) 1.2 K/uL (0.7-4.9); Hematocrit 41.1 % (39.6-49.0); Hemoglobin 13.8 g/dL (13.6-17.9); MCH 31.5 pg (27.0-35.0); MCHC 33.6 g/dL (32.0-36.0); MCV 93.9 fL (80-100); MPV 10.1 fL (7.6-11.3); Nucleated RBC Absolute Count 0.0 (0-0); Nucleated Red Blood Cells % 0.0 % (0-0); RBC Red Blood Cell Count 4.38 M/uL (4.33-5.43); White Blood Count 11.00 thou/uL (4.3-10.9)
--- NOTE | 2024-10-31 12:06 | RAD REPORT ---
EXAM: Chest Single View HISTORY: 74 years Male CHEST PAIN COMPARISON: 05/20/2021 FINDINGS: LUNGS/PLEURA: The lungs are clear. No pleural effusions or pneumothorax. No pulmonary edema. CARDIAC/MEDIASTINUM: The cardiac silhouette is within normal limits. UPPER ABDOMEN: No significant abnormality. BONES: No acute abnormality. LINES/TUBES/OTHER: N/A IMPRESSION: No evidence of acute cardiopulmonary disease.
[2024-10-31] MEDS ORDERED: ONDANSETRON 4 MG/2 ML VIAL ONE (12:07)
[2024-10-31] MEDS ORDERED: MORPHINE 4 MG/ML SYR ONE (12:08)
[2024-10-31 12:17] LABS: ALT/SGPT 32.0 U/L (16-61); AST/SGOT 17.0 U/L (15-37); Albumin 3.1 g/dL (3.4-5.0); Albumin/Globulin Ratio 0.9 (1.1-1.8); Alkaline Phosphatase 78.0 U/L (45-117); Anion Gap 7.8 mEq/L (5.0-15.0); BUN Blood Urea Nitrogen 22.0 mg/dL (7-18); Bilirubin Indirect, Calculated 0.5 mg/dL (0.2-0.8); Globulin 3.3 g/dL (2.3-3.5); Glucose Level 113.0 mg/dL (74-106); Lipase 25.0 U/L (13-75); Magnesium 1.8 mg/dL (1.6-2.4); NT PRO-BNP 189.0 pg/mL (<125); Potassium 3.8 mEq/L (3.5-5.1); Troponin High Sensitivity 15.4 pg/mL (<58.9)
--- NOTE | 2024-10-31 12:40 | ER ---
Nurse's Notes [facility] Name: Gildardo Callejas Age: 74 yrs Sex: Male : 1950 Arrival Date: 10/31/2024 Time: 10:42 Bed 6 Private MD: Diagnosis: Chest pain, unspecified;Dementia in other diseases classified elsewhere without behavioral disturbance Presentation: 10/31 11:15 Chief complaint: Patient states: C/O worsening right sided CP with tenderness x3 days. ar8 Coronavirus screen: At this time, the client does not indicate any symptoms associated with coronavirus-19. Ebola Screen: No symptoms or risks identified at this time. 11:15 Method Of Arrival: Wheelchair ar8 11:15 Initial Sepsis Screen: Does the patient meet any 2 criteria? No. Patient's initial ar8 sepsis screen is negative. Does the patient have a suspected source of infection? No. Patient's initial sepsis screen is negative. Risk Assessment: Do you want to hurt yourself or someone else? Patient reports no desire to harm self or others. Onset of symptoms was October 28, 2024. 11:15 Acuity: MORE 3 ar8 Triage Assessment: 11:15 General: Appears in no apparent distress. Behavior is calm, cooperative. Pain: ar8 Complains of pain in anterior aspect of right upper chest and right breast Pain does not radiate. Pain currently is 8 out of 10 on a pain scale. Pain began 2-3 days ago. EENT: No deficits noted. Neuro: No deficits noted. Level of Consciousness is awake, alert, obeys commands, Oriented to person, place, time, situation. Cardiovascular: Reports chest pain, tenderness noted with palpation to right side of chest. Respiratory: No deficits noted. Airway is patent Respiratory effort is even, unlabored, Respiratory pattern is regular, symmetrical. GI: No deficits noted. Historical: - Allergies: 10:57 Sulfa (Sulfonamide Antibiotics); ll1 - PMHx: 10:57 Dementia; Diabetes - NIDDM; Myocardial infarction; knee surgery; Hypertension; ll1 - Immunization history:: Adult Immunizations up to date. - Infectious Disease History:: Denies. - Family history:: not pertinent. - Social history:: Smoking status: Patient reports the use of cigarette tobacco products, denies chronic smoking, but will smoke occasionally. Screenin:00 [facility] ED Fall Risk Assessment (Adult) History of falling in the last 3 months, ar8 including since admission No falls in past 3 months (0 pts) Confusion or Disorientation No (0 pts) Intoxicated or Sedated No (0 pts) Impaired Gait No (0 pts) Mobility Assist Device Used No (0 pt) Altered Elimination No (0 pt) Score/Fall Risk Level 0 - 2 = Low Risk. Abuse screen: Denies threats or abuse. Nutritional screening: No deficits noted. Tuberculosis screening: No symptoms or risk factors identified. Assessment: 12:00 Reassessment: see triage assessment. ar8 13:03 GI: Abdomen is distended, Last BM was October 31, 2024. Abd is non tender Abd is rigid. ar8 Vital Signs: 11:30 BP 158 / 65; Pulse 53; Pulse Ox 96% on R/A; ar8 11:50 BP 148 / 70; Pulse 53; Resp 18; Pulse Ox 95% on R/A; Weight 79.38 kg; Height 5 ft. 7 ar8 in. ; Pain 8/10; 12:45 BP 162 / 63; Pulse 54; Resp 19; Pulse Ox 93% on R/A; ar8 13:02 Pain 6/10; ar8 14:30 BP 135 / 57; Pulse 55; Resp 20; Pulse Ox 93% on R/A; ar8 11:50 Body Mass Index 27.41 (79.38 kg, 170.18 cm) ar8 11:50 Pain Scale: Adult ar8 13:02 Pain Scale: Adult ar8 ED Course: 10:46 Patient arrived in ED. im 10:47 Hans Robison MD is Attending Physician. shantel 10:51 Arm band placed on. ll1 10:57 EKG done, by ED staff, reviewed by Hans Robison MD. em1 11:15 Bed in low position. Call light in reach. Side rails up X2. ar8 11:15 Provided Education on: plan of care. Client placed on continuous cardiac and pulse ar8 oximetry monitoring. NIBP monitoring applied. 11:35 No provider procedures requiring assistance completed. Inserted saline lock: 22 gauge ar8 in right antecubital area, using aseptic technique. Blood collected. Flushed with 10 mL NS. 11:35 Patient maintains SpO2 saturation greater than 95% on room air. ar8 11:40 XRAY Chest (1 view) In Process Unspecified. EDMS 11:56 Oscar Peterson, RN is Primary Nurse. ar8 11:59 Triage completed. ar8 12:38 Jamil Kyle MD is Hospitalizing Provider. [facility] 13:01 UA Rfx Kory Cult if indicated Sent. ar8 13:23 CT Aorta for Dissection In Process Unspecified. EDMS 15:09 Patient admitted, IV remains in place. ap3 Administered Medications: 11:40 Drug: Aspirin PO Chewable Tablet 162 mg PO once Route: PO; ar8 13:02 Follow up: Response: No adverse reaction ar8 11:41 Drug: NS 0.9% IV 1000 ml IV at 1000 ml once; to be given as a bolus over 60 minutes ar8 Route: IV; Rate: 1000 ml; Site: right antecubital; 13:01 Follow up: Response: No adverse reaction; IV Status: Completed infusion; IV Intake: ar8 1000ml 11:41 Drug: Famotidine IVP 20 mg IVP once; dilute with 10 mL 0.9% NaCl; give over 2 minutes ar8 Route: IVP; Site: right antecubital; 13:02 Follow up: Response: No adverse reaction ar8 12:27 Drug: morphine IVP or IV 4 mg IVP once over 4 mins Route: IVP; Infused Over: 4 mins; ar8 Site: right antecubital; 13:02 Follow up: Pain 6/10 Adult; Response: Pain is decreased ar8 12:27 Drug: Ondansetron IVP 4 mg IVP once; over 2 minutes Route: IVP; Site: right antecubital;ar8 13:02 Follow up: Response: No adverse reaction ar8 Medication: 12:00 VIS not applicable for this client. ar8 Intake: 13:01 IV: 1000ml; Total: 1000ml. ar8 Outcome: 12:40 Decision to Hospitalize by Provider. [facility] 15:09 Admitted to Tele accompanied by tech, via wheelchair, ap3 15:09 Condition: good 15:09 Discharge instructions given to patient, Instructed on the need for admit, 15:09 Patient left the ED. ap3 Signatures: Dispatcher [employer] EDMS Hans Robison MD MD cha Martinez, Eric em1 Frieda Najera RN RN ap3 Drew Zaldivar RN RN ll1 Fanny Elizabeth Andrea, RN RN ar8
--- NOTE | 2024-10-31 12:40 | EDPHYS ---
Physician Documentation [facility] Name: Gildardo Callejas Age: 74 yrs Sex: Male : 1950 Arrival Date: 10/31/2024 Time: 10:42 Bed 6 Private MD: ED Physician Hans Robison HPI: 10/31 11:28 This 74 yrs old Male presents to ER via Unassigned with complaints of Chest shantel Pain. 11:28 The patient or guardian reports chest pain that is located primarily in the substernal shantel area, epigastric area, anterior chest wall, right. Onset: 3 day(s) ago. The pain does not radiate. Associated signs and symptoms: The patient has no apparent associated signs or symptoms. The chest pain is described as aching. Modifying factors: The symptoms are alleviated by remaining still, the symptoms are aggravated by cough, deep breath, movement, palpation of area. Severity of pain: At its worst the pain was moderate severe in the emergency department the pain is unchanged. The patient has not experienced similar symptoms in the past. Historical: - Allergies: 10:57 Sulfa (Sulfonamide Antibiotics); ll1 - PMHx: 10:57 Dementia; Diabetes - NIDDM; Myocardial infarction; knee surgery; Hypertension; ll1 - Immunization history:: Adult Immunizations up to date. - Infectious Disease History:: Denies. - Family history:: not pertinent. - Social history:: Smoking status: Patient reports the use of cigarette tobacco products, denies chronic smoking, but will smoke occasionally. ROS: 11:28 Constitutional: Negative for fever, chills, and weight loss, Eyes: Negative for injury, shantel pain, redness, and discharge, ENT: Negative for injury, pain, and discharge, Neck: Negative for injury, pain, and swelling, Respiratory: Negative for shortness of breath, cough, wheezing, and pleuritic chest pain, Abdomen/GI: Negative for abdominal pain, nausea, vomiting, diarrhea, and constipation, Back: Negative for injury and pain, : Negative for injury, bleeding, discharge, and swelling, MS/Extremity: Negative for injury and deformity, Skin: Negative for injury, rash, and discoloration, Neuro: Negative for headache, weakness, numbness, tingling, and seizure, Psych: Negative for depression, anxiety, suicide ideation, homicidal ideation, and hallucinations, Allergy/Immunology: Negative for hives, rash, and allergies, Endocrine: Negative for neck swelling, polydipsia, polyuria, polyphagia, and marked weight changes, Hematologic/Lymphatic: Negative for swollen nodes, abnormal bleeding, and unusual bruising, 11:28 Cardiovascular: Positive for chest pain, Exam: :28 Constitutional: This is a well developed, well nourished patient who is awake, alert, shantel and in no acute distress. Head/Face: Normocephalic, atraumatic. Eyes: Pupils equal round and reactive to light, extra-ocular motions intact. Lids and lashes normal. Conjunctiva and sclera are non-icteric and not injected. Cornea within normal limits. Periorbital areas with no swelling, redness, or edema. ENT: Nares patent. No nasal discharge, no septal abnormalities noted. Tympanic membranes are normal and external auditory canals are clear. Oropharynx with no redness, swelling, or masses, exudates, or evidence of obstruction, uvula midline. Mucous membranes moist. Neck: Trachea midline, no thyromegaly or masses palpated, and no cervical lymphadenopathy. Supple, full range of motion without nuchal rigidity, or vertebral point tenderness. No Meningismus. Chest/axilla: Normal chest wall appearance and motion. Nontender with no deformity. No lesions are appreciated. Cardiovascular: Regular rate and rhythm with a normal S1 and S2. No gallops, murmurs, or rubs. Normal PMI, no JVD. No pulse deficits. Respiratory: Lungs have equal breath sounds bilaterally, clear to auscultation and percussion. No rales, rhonchi or wheezes noted. No increased work of breathing, no retractions or nasal flaring. Back: No spinal tenderness. No costovertebral tenderness. Full range of motion. Male : Normal genitalia with no discharge or lesions. Skin: Warm, dry with normal turgor. Normal color with no rashes, no lesions, and no evidence of cellulitis. MS/ Extremity: Pulses equal, no cyanosis. Neurovascular intact. Full, normal range of motion., bilateral aka Neuro: Awake and alert, GCS 15, oriented to person, place, time, and situation. Cranial nerves II-XII grossly intact. Motor strength 5/5 in all extremities. Sensory grossly intact. Cerebellar exam normal. Normal gait. Psych: Awake, alert, with orientation to person, place and time. Behavior, mood, and affect are within normal limits. 11:28 ECG was reviewed by the Attending Physician. 11:28 Abdomen/GI: Inspection: distension, Bowel sounds: normal, Palpation: moderate abdominal tenderness, Liver: no appreciated palpable abnormalities, Hernia: not appreciated, Vital Signs: 11:30 BP 158 / 65; Pulse 53; Pulse Ox 96% on R/A; ar8 11:50 BP 148 / 70; Pulse 53; Resp 18; Pulse Ox 95% on R/A; Weight 79.38 kg; Height 5 ft. 7 ar8 in. ; Pain 8/10; 12:45 BP 162 / 63; Pulse 54; Resp 19; Pulse Ox 93% on R/A; ar8 13:02 Pain 6/10; ar8 14:30 BP 135 / 57; Pulse 55; Resp 20; Pulse Ox 93% on R/A; ar8 11:50 Body Mass Index 27.41 (79.38 kg, 170.18 cm) ar8 11:50 Pain Scale: Adult ar8 13:02 Pain Scale: Adult ar8 MDM: 10:47 Medical Screening Exam initiated shantel 11:31 Differential diagnosis: abnormal EKG, acute myocardial infarction, acute pericarditis, shantel anxiety, coronary artery disease chest wall pain, congestive heart failure cholecystitis, Cholelithiasis costochondritis, esophagitis, gastritis, gastroesophageal reflux disease (GERD), herpes zoster, hiatal hernia, mitral valve prolapse, myocarditis, pancreatitis, peptic ulcer disease, pericarditis, pleurisy, pneumonia, pulmonary embolus, stable angina, thoracic aortic disection, unstable angina. HEART Score: History: Slightly Suspicious (0), ECG: Non specific repolarization disturbance / LBTB / PM (1), Age: > or = 65 years (2), Risk Factors: > or = 3 Risk factors for atherosclerotic disease (2), [Hypercholesterolemia] [Hypertension] [DM] [Active Smoker]. Data reviewed: vital signs, nurses notes, lab test result(s), EKG, radiologic studies, CT scan, plain films. Consideration of Admission/Observation Escalation of care including admission/observation considered. Independent interpretation of the following test(s) in the Emergency Department EKG: See my EKG interpretation above. Test considered but Not performed: Ultrasound no 2 d echo. 10/31 10:48 Order name: Basic Metabolic Panel; Complete Time: 12:36 10/31 10:48 Order name: CBC with Diff; Complete Time: 12:36 10/31 10:48 Order name: LFT's; Complete Time: 12:36 10/31 10:48 Order name: Magnesium; Complete Time: 12:36 10/31 10:48 Order name: NT PRO-BNP; Complete Time: 12:36 10/31 10:48 Order name: PT-INR 10/31 10:48 Order name: Troponin HS; Complete Time: 12:36 10/31 10:48 Order name: Lipase; Complete Time: 12:36 10/31 10:48 Order name: UA Rfx Kory Cult if indicated; Complete Time: 13:36 10/31 14:20 Order name: CBC with Automated Diff EDMS / 14:20 Order name: CBC with Automated Diff EDMS / 14:20 Order name: CBC with Automated Diff EDMS 10/31 14:20 Order name: CBC with Automated Diff EDMS / 14:20 Order name: Comprehensive Metabolic Panel EDMS 10/31 14:20 Order name: Comprehensive Metabolic Panel EDMS 10/31 14:20 Order name: Comprehensive Metabolic Panel EDMS / 14:20 Order name: Comprehensive Metabolic Panel EDMS / 14:20 Order name: Lipid Profile EDMS 10/31 14:20 Order name: Lipid Profile EDMS / 14:20 Order name: Troponin High Sensitivity EDMS / 14:20 Order name: Troponin High Sensitivity EDMS / 14:20 Order name: Troponin High Sensitivity EDMS /15 10:48 Order name: XRAY Chest (1 view); Complete Time: 12:36 10/31 11:28 Order name: CT Aorta for Dissection; Complete Time: 13:49 10/31 10:48 Order name: Cardiac monitoring; Complete Time: 12:02 10/31 10:48 Order name: EKG - Nurse/Tech; Complete Time: 11:23 10/31 10:48 Order name: IV Saline Lock; Complete Time: 12:02 10/31 10:48 Order name: Labs collected and sent; Complete Time: 12:02 10/31 10:48 Order name: O2 Per Protocol; Complete Time: 12:02 /15 10:48 Order name: O2 Sat Monitoring; Complete Time: 12: shantel EC:28 Rate is 52 beats/min. Rhythm is regular. QRS [place] is Normal. CT interval is normal. QRS shantel interval is normal. QT interval is normal. No Q waves. T waves are Inverted in leads I, aVL, V2, V3, V4. No ST changes noted. Clinical impression: NSR w/ Non-specific ST/T Changes. Interpreted by me. Reviewed by me. Administered Medications: 11:40 Drug: Aspirin PO Chewable Tablet 162 mg PO once Route: PO; ar8 13:02 Follow up: Response: No adverse reaction ar8 11:41 Drug: NS 0.9% IV 1000 ml IV at 1000 ml once; to be given as a bolus over 60 minutes ar8 Route: IV; Rate: 1000 ml; Site: right antecubital; 13:01 Follow up: Response: No adverse reaction; IV Status: Completed infusion; IV Intake: ar8 1000ml 11:41 Drug: Famotidine IVP 20 mg IVP once; dilute with 10 mL 0.9% NaCl; give over 2 minutes ar8 Route: IVP; Site: right antecubital; 13:02 Follow up: Response: No adverse reaction ar8 12:27 Drug: morphine IVP or IV 4 mg IVP once over 4 mins Route: IVP; Infused Over: 4 mins; ar8 Site: right antecubital; 13:02 Follow up: Pain 6/10 Adult; Response: Pain is decreased ar8 12:27 Drug: Ondansetron IVP 4 mg IVP once; over 2 minutes Route: IVP; Site: right antecubital;ar8 13:02 Follow up: Response: No adverse reaction ar8 Disposition Summary: 10/31/24 12:40 Hospitalization Ordered Notes: Hospitalization Status: Inpatient Admission shantel Provider: Jamil Kyle cha Location: Telemetry/MedSurg (Inpatient) shantel Condition: Fair shantel Problem: new shantel Symptoms: have improved shantel Bed/Room Type: Standard shantel Room Assignment: 401(10/31/24 14:58) eb Diagnosis - Chest pain, unspecified shantel - Dementia in other diseases classified elsewhere without behavioral disturbance shanetl Forms: - Medication Reconciliation Form shantel - SBAR form shantel - Leadership Thank You Letter shantel Signatures: Dispatcher [employer] EDMS Hans Robison MD MD cha Attema, Lee, MANAGER RESOURCE-C MANAGER RESOURCE-Cla1 Li Hawley Lynsay, RN RN ll1 Oscar Peterson, REUBEN RN ar8 Corrections: (The following items were deleted from the chart) 10:48 10:48 BASIC METABOLIC PANEL+C.LAB.BRZ ordered. EDMS EDMS 10:48 10:48 CBC+H.LAB.BRZ ordered. EDMS EDMS 10:48 10:48 HEPATIC FUNCTION+C.LAB.BRZ ordered. EDMS EDMS 10:48 10:48 MAGNESIUM+C.LAB.BRZ ordered. EDMS EDMS 10:48 10:48 PROBNP+C.LAB.BRZ ordered. EDMS EDMS 10:48 10:48 PROTIME (+INR)+COAG.LAB.BRZ ordered. EDMS EDMS 10:48 10:48 Troponin High Sensitivity+C.LAB.BRZ ordered. EDMS EDMS 10:48 10:48 LIPASE+C.LAB.BRZ ordered. EDMS EDMS 10:48 10:48 UA Rfx Kory Cult if indicated+U.LAB.BRZ ordered. EDMS EDMS 10:48 10:48 Chest Single View+RAD.RAD.BRZ ordered. EDMS EDMS 14:29 12:40 [facility] eb 14:58 14:[address] [place] [address]
[2024-10-31 13:06] LABS: Urine Microscopic Reflex YN NO UMIC
--- NOTE | 2024-10-31 13:46 | RAD REPORT ---
EXAM: CTA of the chest, abdomen and pelvis HISTORY: Chest and abdominal pain COMPARISON: 2023 TECHNIQUE: Multiple contiguous axial images were obtained a CTA of the chest and abdomen with contras t per aortic dissection protocol. Sagittal and coronal 3-D MIP reformats were performed. 100 cc Isovue-370 administered intravenously.Automated exposure control, adjustment of the mA and kV accordi ng to the patient size, and iterative reconstruction. Unless otherwise specified, incidental findings do not require dedicated imaging follow-up. FINDINGS: Evaluation of the ascending thoracic aorta is somewhat limited secondary to respiratory motion artifa ct. Otherwise, an aortic aneurysm not noted. No aortic aneurysm Calcified plaque estimate results in a high-grade stenosis. The celiac artery patent. Calcified plaqu e results in moderate stenosis DIEUDONNE. Calcified plaque right and left renal arteries results in a moderate stenosis. Calcified plaque right common iliac artery results in a high-grade stenosis. No lung consolidation Stable fluid collection posterior mediastinum. Mild fatty liver. Parapelvic renal cysts. Spleen, pancreas and adrenals unremarkable. Left hip arthroplasty Diverticula stem from colon without diverticulitis. Neuro stimulator device in place IMPRESSION: No evidence of an aortic dissection. 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
[2024-10-31] MEDS ORDERED: MORPHINE 2 MG/ML SYR IV PRN (14:16)
[2024-10-31] MEDS ORDERED: HYDROCODONE/APAP 5/325 MG TAB PO PRN (14:16)
[2024-10-31] MEDS ORDERED: ONDANSETRON 4 MG/2 ML VIAL IV PRN (14:16)
--- NOTE | 2024-10-31 14:54 | P.HP ---
Certification for Inpatient Patient admitted to: Observation With expected LOS: <2 Midnights Patient will require the following post-hospital care: None Practitioner: I am a practitioner with admitting privileges, knowledge of patient current condition, hospital course, and medical plan of care. Services: Services provided to patient in accordance with Admission requirements found in Title 42 Section 412.3 of the Code of Federal Regulations Patient History Date of Service: 10/31/24 Reason for admission: Chest pain History of Present Illness: 74-year-old male with history of dementia, trf-hwhvfvi-drccmxdzt diabetes, previous CAD, hypertension presents emergency department chief complaint of right-sided chest pain. Patient reports ongoing/worsening right-sided chest pain with tenderness palpation for the last 3 days. Patient was evaluated here in the emergency department his labs were significant for initial high sensitive troponin of 15.4 EKG without STEMI criteria CT dissection protocol was performed which showed no evidence of aortic dissection, no acute findings in the chest, high-grade stenosis of the SMA and right common iliac arteries. ED provider wishes to admit patient under observation for ACS rule out. Allergies No Known Drug Allergies Allergy (Verified 05/20/21 13:13) Unknown Home Medications: Amlodipine [Norvasc*] 1 tab PO DAILY 05/20/21 Aspirin [Aspirin EC 81 MG] 1 tab PO DAILY 05/20/21 Atorvastatin Calcium [Lipitor] 1 tab PO DAILY 05/20/21 Donepezil [Aricept*] 10 mg PO BID 05/20/21 Memantine HCl 1 tab PO BID 05/20/21 Metoprolol Tartrate [Lopressor*] 1 tab PO DAILY 05/20/21 Multivit with Iron,Minerals [Multivitamins with Iron] 1 tab PO DAILY 05/20/21 Pantoprazole [Protonix Tab*] 1 tab PO DAILY 05/20/21 Sertraline [Zoloft*] 1 tab PO DAILY 05/20/21 Ubidecarenone [Co Q-10] 1 tab PO DAILY 05/20/21 Cefdinir [Omnicef] 300 mg PO BID #10 capsule 05/25/21 Docusate [Colace Cap*] 200 mg PO DAILY PRN #30 cap 05/25/21 Hydrocodone 7.5/APAP 325 [Tiona 7.5/325 mg*] 1 tab PO Q4H PRN #30 tab 05/25/21 Hydrocodone 7.5/APAP 325 [Tiona 7.5/325 mg] 1 tab PO Q6H PRN #30 tab 05/25/21 Rivaroxaban [Xarelto] 10 mg PO DAILY #20 tablet 05/25/21 - Past Medical/Surgical History Diabetic: Yes -: HTN -: HLD -: NIDDM -: 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 -: Dementia -: L hip replacement 05/24/21 -: L knee replacement - Social History Alcohol use: No CD- Drugs: No Caffeine use: Yes Place of Residence: Home Review of Systems 10-point ROS is otherwise unremarkable Cardiovascular: Chest Pain, Other (Chest wall tenderness) Physical Examination - Physical Exam General: Alert, In no apparent distress, Oriented x3 HEENT: Atraumatic, PERRLA Neck: Supple, 2+ carotid pulse no bruit, No LAD Respiratory: Clear to auscultation bilaterally, Normal air movement Cardiovascular: Regular rate/rhythm, Normal S1 S2 Gastrointestinal: Normal bowel sounds, No tenderness Musculoskeletal: Tenderness (Chest wall tenderness on the right side) Integumentary: No rashes Neurological: Normal gait, Normal speech, Normal strength at 5/5 x4 extr, Normal affect - Studies Laboratory Data (last 24 hrs) 10/31/24 10/31/24 11:35 11:35 WBC 11.00 H Hgb 13.8 Hct 41.1 Plt Count 128 L Sodium 140 Potassium 3.8 BUN 22 H Creatinine 0.93 Glucose 113 H Magnesium 1.8 Total Bilirubin 0.8 AST 17 ALT 32 Alkaline Phosphatase 78 Lipase 25 Assessment and Plan - Plan Assessment: Chest pain rule out ACS Diabetes mellitus type [id number] Hypertension Dementia Plan: Chest pain rule out ACS Chest pain to right chest wall with tenderness to palpation Initial cardiac enzymes negative Will trend troponins and monitor on telemetry Seems more musculoskeletal in nature As needed pain medications Diabetes mellitus type 5mrm-[id number]-cyjphxear ACHS Accu-Chek, sliding scale insulin Hypertension Dementia Continue home indications when verified DVT PPX: Lovenox Code status: Full code Discharge Plan: Home Plan to discharge in: 24 Hours - Advance Directives Does patient have a Living Will: No Does patient have a Durable POA for Healthcare: No - Code Status/Comfort Care Code Status Assessed: Yes (Full code) Critical Care: No Time Spent Managing Pts Care (In Minutes): 68
[2024-10-31] MEDS: INSULIN REGULAR (HUMAN) 100 UNIT/ML SQ SCH (16:14)
[2024-10-31 16:44] VITALS: BMI 26.9
[2024-10-31 16:58] VITALS: O2SAT 93
[2024-10-31] MEDS: predniSONE 10 MG TAB PO SCH (17:11)
--- NOTE | 2024-10-31 21:01 | CON ---
Date of Consultation: 10/31/2024 Reason For Consultation: Chest pain. History Of Present Illness: 74-year-old male, history of dementia, very poor historian, diabetes, hi story of coronary artery disease, and hypertension. This is from the chart. Patient is not able to tell me why he presented to the emergency room even. As per the chart, that says that there is some ongoing worsening right-sided chest pain for the past 3 days. Denies having any shortness of breath or left-sided chest pain, but again patient is a very poor historian. Past Medical History: As outlined above in the HPI. Medications: Refer to reconciliation sheet for detailed list. Allergies: NO KNOWN DRUG ALLERGIES. Family History: No premature coronary artery disease or cancer. Social History: He does not smoke or drink. Does not use any drugs. Review of Systems: All systems reviewed and they were negative except as mentioned in the HPI. Physical Examination: Vital Signs: Reviewed. Head and Neck: Pupils are equal, reactive to light. Intact eye movements. No JVD. No cervical lym phadenopathy. Neck is supple. Thyroid is not enlarged. Lungs: Clear to auscultation bilaterally. No rhonchi, wheezing, or crackles. No accessory muscle u se. Heart: Regular rate and rhythm. No extra sounds. Abdomen: Soft, nontender. Bowel sounds positive. No organomegaly. No masses or hernia. No rigidi ty or rebound. Extremities: No edema, clubbing, or cyanosis. Intact pulses. Skin: No rash. No nodules. Neurologic: Alert, awake, and oriented x3. No acute focal deficits appreciated. Investigations: BUN 22, creatinine 0.93. Troponin 15.4 and hemoglobin is 13.8. Assessment And Recommendations: 1. Chest pain, right-sided, atypical, first set of cardiac enzymes are negative. He has history of c oronary artery disease as per chart. Trend 2 more sets of cardiac enzymes and if that is normal, pat ient can be released for outpatient stress test. If his troponin goes up, then to keep through the w eekend, then we will plan for further ischemia evaluation on Sunday, but if his troponins are negativ e, patient can be released to follow up as an outpatient with the stress test. 2. Abnormal CT scan finding showing high-grade SMA stenosis and right common iliac artery. Recommend angiogram which is to be done as an outpatient. Once patient is discharged, please follow up with u s in the office and we will arrange to further evaluate the above. Thank you for the consult. GISSEL Voice ID: [id number] Report ID: [id number]
[2024-11-01 06:03] LABS: Absolute Lymphocytes (CBC) 1.1 K/uL (0.7-4.9); Hematocrit 40.8 % (39.6-49.0); Hemoglobin 13.8 g/dL (13.6-17.9); MCH 31.8 pg (27.0-35.0); MCHC 33.8 g/dL (32.0-36.0); MCV 93.9 fL (80-100); MPV 10.3 fL (7.6-11.3); Nucleated RBC Absolute Count 0.0 (0-0); Nucleated Red Blood Cells % 0.0 % (0-0); RBC Red Blood Cell Count 4.35 M/uL (4.33-5.43); White Blood Count 11.00 thou/uL (4.3-10.9)
[2024-11-01 06:32] LABS: ALT/SGPT 27.0 U/L (16-61); AST/SGOT 12.0 U/L (15-37); Albumin 2.9 g/dL (3.4-5.0); Albumin/Globulin Ratio 0.9 (1.1-1.8); Alkaline Phosphatase 72.0 U/L (45-117); Anion Gap 12.0 mEq/L (5.0-15.0); BUN Blood Urea Nitrogen 20.0 mg/dL (7-18); Globulin 3.1 g/dL (2.3-3.5); Glucose Level 115.0 mg/dL (74-106); HDL Cholesterol 41.0 mg/dL (40-60); LDL Cholesterol, Calculated 34.0 mg/dL (<130); LDL Cholesterol,Calc NonReport 34.0; Potassium 4.0 mEq/L (3.5-5.1); Troponin High Sensitivity 12.9 pg/mL (<58.9)
[2024-11-01 08:11] VITALS: BP 156/79; TEMP 97.7
[2024-11-01] MEDS: ASPIRIN EC 81 MG TAB PO SCH ×2 (08:48→08:49)
[2024-11-01] MEDS: METOPROLOL TAR 25 MG TAB PO SCH (08:48)
[2024-11-01] MEDS: DONEPEZIL HCL 5 MG TAB PO SCH (08:48)
[2024-11-01] MEDS: ENOXAPARIN 40 MG/0.4 ML SQ SCH (08:49)
[2024-11-01] MEDS: AMLODIPINE 5 MG TAB PO SCH (08:49)
[2024-11-01] MEDS: SERTRALINE HCL 100 MG TAB PO SCH (08:49)
[2024-11-01] MEDS: MEMANTINE HCL 10 MG TABLET PO SCH (08:49)
[2024-11-01] MEDS: ATORVASTATIN 80 MG TAB PO SCH (08:49)
--- NOTE | 2024-11-01 09:49 | P.DS ---
Admission Date: 10/31/24 Discharge Date: 11/01/24 Disposition: ROUTINE DISCHARGE Discharge Condition: GOOD Reason for Admission: Chest pain Brief History of Present Illness: 74-year-old male with history of dementia, gyl-ayeydsd-tlnbwqqcm diabetes, previous CAD, hypertension presents emergency department chief complaint of right-sided chest pain. Patient reports ongoing/worsening right-sided chest pain with tenderness palpation for the last 3 days. Patient was evaluated here in the emergency department his labs were significant for initial high sensitive troponin of 15.4 EKG without STEMI criteria CT dissection protocol was performed which showed no evidence of aortic dissection, no acute findings in the chest, high-grade stenosis of the SMA and right common iliac arteries. ED provider wishes to admit patient under observation for ACS rule out. Hospital Course: Assessment: Chest pain rule out ACS Diabetes mellitus type [id number] Hypertension Dementia Patient was admitted to the hospital under observation for ACS rule out, he has right-sided chest pain which is reproducible to palpation. He has monitor on telemetry with no significant events, troponin was negative x 3 and he was seen by cardiology. Given the 3 negative troponins cardiology recommends outpatient follow-up in clinic. Patient stable for discharge and outpatient follow-up with cardiology. Continue all home medications as previously prescribed. Vital Signs/Physical Exam: Temp Pulse Resp BP Pulse Ox 97.7 F 52 18 156/79 H 93 11/01/24 08:00 11/01/24 08:00 11/01/24 08:00 11/01/24 08:00 11/01/24 08:00 General: Alert, In no apparent distress HEENT: Atraumatic, PERRLA Neck: Supple, JVD not distended Respiratory: Clear to auscultation bilaterally, Normal air movement Cardiovascular: Regular rate/rhythm, Normal S1 S2 Gastrointestinal: Normal bowel sounds, No tenderness Musculoskeletal: No tenderness Integumentary: No rashes Neurological: Normal speech, Normal affect Laboratory Data at Discharge: WBC 11.00 thou/uL (4.3-10.9) H 11/01/24 05:34 Hgb 13.8 g/dL (13.6-17.9) 11/01/24 05:34 Hct 40.8 % (39.6-49.0) 11/01/24 05:34 Plt Count 126 thou/uL (152-406) L 11/01/24 05:34 Sodium 142 mEq/L (136-145) 11/01/24 05:34 Potassium 4.0 mEq/L (3.5-5.1) 11/01/24 05:34 BUN 20 mg/dL (7-18) H 11/01/24 05:34 Creatinine 0.88 mg/dL (0.70-1.30) 11/01/24 05:34 Glucose 115 mg/dL (74-106) H 11/01/24 05:34 Magnesium 1.8 mg/dL (1.6-2.4) 10/31/24 11:35 Total Bilirubin 0.6 mg/dL (0.2-1.0) 11/01/24 05:34 AST 12 U/L (15-37) L 11/01/24 05:34 ALT 27 U/L (16-61) 11/01/24 05:34 Alkaline Phosphatase 72 U/L (45-117) 11/01/24 05:34 Triglycerides 80 mg/dL (<150) 11/01/24 05:34 Cholesterol 91 mg/dL (<200) 11/01/24 05:34 HDL Cholesterol 41 mg/dL (40-60) 11/01/24 05:34 Cholesterol/HDL Ratio 2.22 11/01/24 05:34 Lipase 25 U/L (13-75) 10/31/24 11:35 Home Medications: Amlodipine [Norvasc*] 1 tab PO DAILY 05/20/21 Aspirin [Aspirin EC 81 MG] 1 tab PO DAILY 05/20/21 Atorvastatin Calcium [Lipitor] 1 tab PO DAILY 05/20/21 Donepezil [Aricept*] 10 mg PO BID 05/20/21 Memantine HCl 1 tab PO BID 05/20/21 Metoprolol Tartrate [Lopressor*] 1 tab PO DAILY 05/20/21 Multivit with Iron,Minerals [Multivitamins with Iron] 1 tab PO DAILY 05/20/21 Sertraline [Zoloft*] 1 tab PO DAILY 05/20/21 Metformin ER [Glucophage ER*] 500 mg PO DAILY AT SUPPER 10/31/24 Physician Discharge Instructions: Patient was admitted to the hospital under observation for ACS rule out, he has right-sided chest pain which is reproducible to palpation. He has monitor on telemetry with no significant events, troponin was negative x 3 and he was seen by cardiology. Given the 3 negative troponins cardiology recommends outpatient follow-up in clinic. Patient stable for discharge and outpatient follow-up with cardiology. Continue all home medications as previously prescribed. Diet: AHA Activity: Ad karen Followup: Torito Pardo, DO [Primary Care Provider] - Harsha Daugherty MD [ACTIVE - CAN ADMIT] - 1-2 Weeks Time spent managing pt's care (in minutes): 37
== END 2024-11-01 10:14 | disposition home or self-care (01) ==
LOC: ER 10:42 → ERHOLD 14:15 → 4TH 14:51
PROVIDERS: ADMIT Hospitalist; ATTEND Hospitalist
DX: I77.1 Stricture of artery (principal); R07.89 Other chest pain; I25.10 Atherosclerotic heart disease of native coronary artery without angina pectoris; F03.90 Unspecified dementia, unspecified severity, without behavioral disturbance, psychotic disturbance, mood disturbance, and anxiety; E11.9 Type 2 diabetes mellitus without complications; I10 Essential (primary) hypertension; R00.2 Palpitations
CPT/HCPCS: 96361; 93005; 85025 ×2; 80048; 36415; 83735; 80061; 82947 ×3; 80076; 81003; 84484 ×3; 83690; 80053; 83880; 71275; 74175; 71045; 96375; 96374; 99285; Q9967; J7512 ×2; J1650; J2405; J1815; J7030; G0378